=== PATIENT | female | born 1945 | race Caucasian/White ===

== ENCOUNTER → 2023-10-14 11:18 | Outpatient (REF) | payer MEDICARE, BC, SELFPAY ==
[2023-10-14 12:07] LABS: Urine Albumin Negative (Neg - Trace); Urine Bilirubin Negative (Negative); Urine Character Clear (Clear); Urine Color Yellow; Urine Glucose Negative (Negative); Urine Ketone Negative (Negative); Urine Leukocyte Trace (Negative); Urine Nitrite Negative (Negative); Urine Occult Blood Negative (Negative); Urine Specific Gravity 1.015 (<1.030); Urine Urobilinogen Negative (Neg - 1+)
[2023-10-14 12:45] LABS: Urine Calcium Oxalate Crystals Present
== END ==
LOC: OLABLV 11:18
PROVIDERS: ATTENDING PHYSICIAN Nurse Practitioner
DX: N39.0 Urinary tract infection, site not specified (principal)
CPT/HCPCS: 81003; 81015; 87086

== ENCOUNTER → 2023-10-22 10:59 | Outpatient (REF) | payer MEDICARE, BC, SELFPAY ==
[2023-10-22 11:39] LABS: % Basophils 0.8 % (0-2); % Immature Granulocytes 0.4 % (0-0.5); % Lymphocytes 18.5 % (20.5-51.1); % Monocytes 11.4 % (1.7-9.3); % Neutrophils 65.9 % (42.2-75.2); Absolute Basophils 0.1 10^3/uL (0-0.2); Absolute Eosinophils 0.3 10^3/uL (0-0.7); Absolute Lymphocytes 1.7 10^3/uL (1.2-3.4); Absolute Monocytes 1.1 10^3/uL (0.1-0.6); Absolute Neutrophils 6.1 10^3/uL (1.4-6.5); Hematocrit 40.6 % (37.0-47.0); Hemoglobin 13.6 g/dL (12.0-16.0); Mean Corp Hgb Conc. 33.5 g/dL (33.0-37.0); Mean Corpuscular Hgb 31.3 pg (27.0-31.0); Mean Corpuscular Volume 93.5 fL (81.0-99.0); Mean Platelet Volume 10.1 fL (7.4-10.4); Nucleated Red Blood Cells % 0 %; Platelet Count 250 10^3/uL (130-400); Red Blood Cell Count 4.34 10^6/uL (4.20-5.40); Red Cell Dist. Width 12.3 % (11.5-14.5); White Blood Cell Count 9.2 10^3/uL (4.8-10.8)
[2023-10-22 12:40] LABS: Glycohemoglobin (HgbA1c) 7.1 % (4.0-5.6)
[2023-10-22 12:42] LABS: ALT (SGPT) 19 U/L (0-35); AST (SGOT) 39 U/L (14-36); Albumin 3.6 g/dl (3.5-5.0); Alkaline Phosphatase 122 U/L (38-126); Blood Urea Nitrogen 12 mg/dl (7-17); Calcium 8.8 mg/dl (8.4-10.2); Carbon Dioxide 33 mmol/L (22-30); Chloride 96 mmol/L (98-107); Glucose 123 mg/dl (70-99); HDL Cholesterol 41 mg/dl; LDL Cholesterol, Calculated 64 mg/dl; Sodium 134 mmol/L (135-145); Total Bilirubin 0.6 mg/dl (0.2-1.3); Total Cholesterol 140 mg/dl (50-199); Total Protein 6.2 g/dl (6.3-8.2); Triglyceride 176 mg/dl (10-149); Very Low Density Lipoprotein 35 mg/dl (0-30); eGFR > 60.00
[2023-10-22 13:17] LABS: Free T4 1.36 ng/dl (0.78-2.19)
[2023-10-22 13:31] LABS: TSH 0.81 uIU/ml (0.47-4.68)
== END ==
LOC: OLABLV 10:59
PROVIDERS: ATTENDING PHYSICIAN Nurse Practitioner
DX: I50.33 Acute on chronic diastolic (congestive) heart failure (principal); I35.0 Nonrheumatic aortic (valve) stenosis; R41.82 Altered mental status, unspecified; R35.0 Frequency of micturition; E11.65 Type 2 diabetes mellitus with hyperglycemia
CPT/HCPCS: 80053; 80061; 83036; 84439; 84443; 85025

== ENCOUNTER → 2023-11-05 10:30 | Outpatient (REF) | payer MEDICARE, BC, SELFPAY ==
[2023-11-05 12:19] LABS: Uric Acid 7.9 mg/dl (2.5-6.2)
== END ==
LOC: OLABLV 10:30
PROVIDERS: ATTENDING PHYSICIAN Internal Medicine
DX: E79.0 Hyperuricemia without signs of inflammatory arthritis and tophaceous disease (principal); M10.9 Gout, unspecified
CPT/HCPCS: 36415; 84550

== ENCOUNTER → 2023-12-15 10:11 | Outpatient (REF) | payer MEDICARE, BC, SELFPAY ==
[2023-12-15 10:57] LABS: % Basophils 1.1 % (0-2); % Eosinophils 5.6 % (0-6); % Immature Granulocytes 0.3 % (0-0.5); % Lymphocytes 24.9 % (20.5-51.1); % Monocytes 10.8 % (1.7-9.3); % Neutrophils 57.3 % (42.2-75.2); Absolute Basophils 0.1 10^3/uL (0-0.2); Absolute Eosinophils 0.4 10^3/uL (0-0.7); Absolute Lymphocytes 1.9 10^3/uL (1.2-3.4); Absolute Monocytes 0.8 10^3/uL (0.1-0.6); Absolute Neutrophils 4.3 10^3/uL (1.4-6.5); Hematocrit 42.2 % (37.0-47.0); Hemoglobin 13.9 g/dL (12.0-16.0); Mean Corp Hgb Conc. 32.9 g/dL (33.0-37.0); Mean Corpuscular Hgb 31.1 pg (27.0-31.0); Mean Corpuscular Volume 94.4 fL (81.0-99.0); Mean Platelet Volume 10.4 fL (7.4-10.4); Nucleated Red Blood Cells % 0 %; Platelet Count 201 10^3/uL (130-400); Red Blood Cell Count 4.47 10^6/uL (4.20-5.40); Red Cell Dist. Width 12.5 % (11.5-14.5); White Blood Cell Count 7.5 10^3/uL (4.8-10.8)
[2023-12-15 11:40] LABS: ALT (SGPT) 30 U/L (0-35); AST (SGOT) 82 U/L (14-36); Albumin 4.2 g/dl (3.5-5.0); Alkaline Phosphatase 119 U/L (38-126); Blood Urea Nitrogen 14 mg/dl (7-17); Calcium 9.1 mg/dl (8.4-10.2); Carbon Dioxide 34 mmol/L (22-30); Chloride 96 mmol/L (98-107); Glucose 132 mg/dl (70-99); Potassium 3.8 mmol/L (3.5-5.1); Sodium 136 mmol/L (135-145); Total Bilirubin 0.4 mg/dl (0.2-1.3); Total Protein 6.9 g/dl (6.3-8.2); Uric Acid 6.8 mg/dl (2.5-6.2); eGFR > 60.00
[2023-12-15 12:37] LABS: Glycohemoglobin (HgbA1c) 7.2 % (4.0-5.6)
== END ==
LOC: OLABLV 10:11
PROVIDERS: ATTENDING PHYSICIAN Internal Medicine; FAMILY PHYSICIAN Nurse Practitioner
DX: M10.9 Gout, unspecified (principal); I10 Essential (primary) hypertension; R73.01 Impaired fasting glucose
CPT/HCPCS: 36415; 80053; 83036; 84550; 85025

== ENCOUNTER → 2024-02-02 10:10 | Outpatient (REF) | payer MEDICARE, BC, SELFPAY ==
[2024-02-02 11:22] LABS: % Basophils 1.3 % (0-2); % Eosinophils 7.2 % (0-6); % Immature Granulocytes 0.3 % (0-0.5); % Lymphocytes 29.4 % (20.5-51.1); % Monocytes 10.9 % (1.7-9.3); % Neutrophils 50.9 % (42.2-75.2); Absolute Basophils 0.1 10^3/uL (0-0.2); Absolute Eosinophils 0.5 10^3/uL (0-0.7); Absolute Monocytes 0.7 10^3/uL (0.1-0.6); Absolute Neutrophils 3.4 10^3/uL (1.4-6.5); Hematocrit 37.2 % (37.0-47.0); Hemoglobin 12.5 g/dL (12.0-16.0); Mean Corp Hgb Conc. 33.6 g/dL (33.0-37.0); Mean Corpuscular Hgb 30.9 pg (27.0-31.0); Mean Corpuscular Volume 91.9 fL (81.0-99.0); Mean Platelet Volume 10.2 fL (7.4-10.4); Nucleated Red Blood Cells % 0 %; Platelet Count 194 10^3/uL (130-400); Red Blood Cell Count 4.05 10^6/uL (4.20-5.40); Red Cell Dist. Width 12.7 % (11.5-14.5); White Blood Cell Count 6.7 10^3/uL (4.8-10.8)
[2024-02-02 13:38] LABS: ALT (SGPT) 26 U/L (0-35); AST (SGOT) 79 U/L (14-36); Albumin 3.4 g/dl (3.5-5.0); Alkaline Phosphatase 110 U/L (38-126); Blood Urea Nitrogen 19 mg/dl (7-17); Calcium 8.3 mg/dl (8.4-10.2); Carbon Dioxide 40 mmol/L (22-30); Chloride 90 mmol/L (98-107); Glucose 125 mg/dl (70-99); Potassium 2.5 mmol/L (3.5-5.1); Sodium 138 mmol/L (135-145); Total Bilirubin 0.4 mg/dl (0.2-1.3); eGFR 51.43
[2024-02-02 16:39] LABS: Urine Albumin Negative (Neg - Trace); Urine Bilirubin Negative (Negative); Urine Character Clear (Clear); Urine Color Yellow; Urine Glucose Negative (Negative); Urine Ketone Negative (Negative); Urine Leukocyte Negative (Negative); Urine Nitrite Negative (Negative); Urine Occult Blood Negative (Negative); Urine Urobilinogen Negative (Neg - 1+)
== END ==
LOC: OLABLV 10:10
PROVIDERS: ATTENDING PHYSICIAN Internal Medicine
DX: F03.918 Unspecified dementia, unspecified severity, with other behavioral disturbance (principal); E03.9 Hypothyroidism, unspecified; N39.0 Urinary tract infection, site not specified
CPT/HCPCS: 36415; 80053; 81003; 84443; 85025; 87086

== ENCOUNTER → 2024-02-04 10:36 | Outpatient (REF) | payer MEDICARE, BC, SELFPAY ==
[2024-02-04 11:58] LABS: Potassium 3.2 mmol/L (3.5-5.1)
== END ==
LOC: OLABLV 10:36
PROVIDERS: ATTENDING PHYSICIAN Internal Medicine
DX: E87.6 Hypokalemia (principal)
CPT/HCPCS: 36415; 84132

== ENCOUNTER → 2024-02-11 10:52 | Outpatient (REF) | payer MEDICARE, BC, SELFPAY ==
[2024-02-11 12:30] LABS: NT-proBNP 138 pg/ml
[2024-02-11 12:35] LABS: HDL Cholesterol 37 mg/dl; LDL Cholesterol, Calculated 53 mg/dl; Magnesium 1.6 mg/dl (1.6-2.3); Total Cholesterol 135 mg/dl (50-199); Triglyceride 225 mg/dl (10-149); Very Low Density Lipoprotein 45 mg/dl (0-30)
== END ==
LOC: OLABLV 10:52
PROVIDERS: ATTENDING PHYSICIAN Nurse Practitioner Gerontology
DX: E87.6 Hypokalemia (principal); I35.0 Nonrheumatic aortic (valve) stenosis; R06.09 Other forms of dyspnea; E78.2 Mixed hyperlipidemia; E11.9 Type 2 diabetes mellitus without complications
CPT/HCPCS: 36415; 80061; 83735; 83880

== ENCOUNTER → 2024-02-23 11:38 | Outpatient (REF) | payer MEDICARE, BC, SELFPAY ==
[2024-02-23 12:46] LABS: Potassium 4.4 mmol/L (3.5-5.1)
== END ==
LOC: OLABLV 11:38
PROVIDERS: ATTENDING PHYSICIAN Nurse Practitioner Gerontology
DX: E87.6 Hypokalemia (principal)
CPT/HCPCS: 36415; 84132

== ENCOUNTER → 2024-03-30 15:13 | Outpatient (REF) | payer MEDICARE, BC, SELFPAY ==
[2024-03-30 16:22] LABS: Urine Albumin Trace (Neg - Trace); Urine Bilirubin 1+ (Negative); Urine Character Very Cloudy (Clear); Urine Color Yellow; Urine Glucose 1+ (Negative); Urine Ketone Trace (Negative); Urine Leukocyte 2+ (Negative); Urine Nitrite Negative (Negative); Urine Occult Blood Negative (Negative); Urine Specific Gravity 1.015 (<1.030); Urine Urobilinogen Negative (Neg - 1+)
[2024-03-30 16:39] LABS: Urine Red Blood Cell 0-2 /HPF (0-2); Urine White Cell >100 /HPF (0-5)
[2024-03-30 16:40] LABS: Urine Bacteria Many (Negative)
== END ==
LOC: OLABLV 15:13
PROVIDERS: ATTENDING PHYSICIAN Nurse Practitioner Gerontology
DX: N39.0 Urinary tract infection, site not specified (principal)
CPT/HCPCS: 81003; 81015; 87077; 87086

== ENCOUNTER 2024-04-27 12:42 | Emergency (ER) | payer MEDICARE, BC, SELFPAY ==
[2024-04-27 12:44] VITALS: BP 119/77; BMI 31.4
[2024-04-27 13:00] VITALS: BP 111/74
[2024-04-27 14:00] VITALS: BP 116/77
--- NOTE | 2024-04-27 15:56 | ED.GENMED ---
History of Present Illness
General
Chief Complaint: Musculo-Skeletal Complaint
Source: patient and family
Time Seen by Provider: 04/27/24 12:44
History of Present Illness
History of Present Illness:
78-year-old female presenting to the ER from her nursing facility for evaluation of right shoulder pain and swelling that was noticed today. Patient is unable to give much history due to known dementia but states she is unaware of any falls and has
no other concerns other than right shoulder pain. Denies any headaches, visual changes, focal weakness/numbness, abdominal pain.
Past History
Past History
ED Past Medical History: Hypercholesterolemia, Renal failure and Valvular disease
ED Past Surgical History: Appendectomy, Orthopedic and Tonsilectomy
Social History
Tobacco: Non-smoker
Alcohol: None
Drug: None
Personal:
Living: [facility]
Review of Systems
Review of Systems
All Other Systems: ROS reviewed and negative except as documented in HPI and ROS
Phy Exam
Physical Exam
Physical Exam:
GENERAL: Alert , in no apparent distress
HEAD: NCAT
EYE: conjunctiva clear
NECK: Supple
ENT: o/p clr, mmm.
CARDIAC: Regular rate and rhythm
LUNGS: Clear breath sounds bilaterally, no acute respiratory distress, no wheezes/rales/rhonchi
NEUROLOGICAL: Alert and oriented
SKIN: Warm and dry, skin intact. no breaks in skin
MUSCULOSKELETAL: Right upper extremity: Mild soft tissue swelling and tenderness over the AC joint and proximal humeral head. Range of motion limited secondary to pain. Patient does allow for range of motion of the digits, wrist and elbow
without difficulty. Easily palpable radial pulse. Cap refill less than 2 seconds and sensation is grossly intact to light touch.
PSYCH: Normal and appropriate interaction.
Scores
Heart Failure Risk
Heart Failure Risk Score: Not Applicable
Heart Score for Chest Pain Patients
STEMI patient?: Not applicable
Withdrawal Assessment of Alcohol
Withdrawal Assessment Completed?: Not applicable
Course
Orders/Labs/Results
Orders:
Orders
04/27/24 12:52
CR Shoulder, Trauma - Right Urgent
Comment:
Reason For Exam: swelling
04/27/24 14:45
CT Head W/o Iv Contrast Urgent
Comment:
Reason For Exam: unwitnessed fall, ? head injury
04/27/24 16:36
Sling Right-Treatment ONCE
Vital Signs
Initial and Last Documented VS:
Initial Vital Signs
Temp Pulse Resp BP Pulse Ox
98.8 F 91 20 119/77 98
04/27/24 12:44 04/27/24 12:44 04/27/24 12:44 04/27/24 12:44 04/27/24 12:44
Last Documented Vital Signs
Temp Pulse Resp BP Pulse Ox
98.8 F 89 24 111/82 93
04/27/24 12:44 04/27/24 16:33 04/27/24 16:33 04/27/24 16:33 04/27/24 16:33
MDM/Problems Addressed
Differential Diagnosis Includes:
Humerus fracture/contusion, clavicle fracture, shoulder sprain, mechanical fall, intracranial bleeding
MDM/Problems Addressed:
78-year-old female presenting to the emergency department for evaluation after he was noted she had right shoulder pain and swelling. No known fall. Patient unable to provide much history due to dementia but states she has no other concerns right
now and is otherwise very pleasant. Will obtain x-ray. Pending x-ray results may need CT scan as patient could potentially have distracting injury with possible fall.
Chronic conditions affecting care: Neurological disorder (Dementia)
*Radiology
Radiology exam reviewed: preliminary read by ED provider (Proximal humerus versus lateral clavicle) and radiology read reviewed
*Pulse Oximetry
Patient hypoxic: no
*Critical Care Note
Total Time (30-74mins, 75-104mins- exclusive of procedures): Not Applicable
Comment
Comment:
Patient does have a lateral clavicle fracture on radiology read. Given this is likely traumatic will obtain a head CT to rule out any intracranial pathology.
Patient Management
Escalation/DeEscalation of care consider admission/obs:
Rest patient head CT shows no acute intracranial abnormality. 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 I provided a printout of this report and gave it to patient's son as well as discussed the recommended
outpatient dedicated CTA. Advised to contact family doctor that he will be able to arrange this study. Patient was also given information for orthopedics. Sling for the right upper extremity provided. Stable for discharge and aware of return
precautions to the emergency department.
ED Attending Note
-
Portions of this chart may have been created with voice recognition software.� Occasional wrong word or��sound alike� substitutions may have occurred due to the inherent limitations of voice recognition software.
Discharge Plan
Departure
Patient Disposition: Home (Routine Discharge)
Date of Disposition: 04/27/24
Time of Disposition: 16:33
Patient with high blood pressure during this ER visit?: No
Discharge Problem:
Fracture of clavicle, right, closed, Brain aneurysm
Instructions: Clavicle fracture
Prescriptions:
No Action
calcium carbonate [calcium] 500 MG tablet
1,500 mg PO DAILY
Patient Comments:
500 MG TID
valsartan [Diovan] 160 MG tablet
80 mg PO DAILY
rosuvastatin [Crestor] 10 MG tablet
20 mg PO DAILY
furosemide 40 mg Tablet
40 mg PO DAILY
metformin 500 mg Tablet
500 mg PO BID
donepezil [Aricept] 10 mg Tablet
10 mg PO DAILY
Aquaphor Ointment
1 applic TOPICAL BID
ascorbic acid (vitamin C) [Natural Vitamin C-An Hips] 500 mg Tablet
1,000 mg PO DAILY
capsaicin 0.025 % Cream
1 applic TOPICAL TID PRN (Reason: ithcing skin)
nystatin 100,000 unit/gram Powder
1 applic TOPICAL BID
Referrals:
Efra Kang MD [Active] - (Orthopedics)
Sangeetha Steel CRNP [Family Provider] -
Interventions
Interventions:
*Risk Screen - Suicide Last Done: 04/27/24 12:44
*General Assessment Last Done: 04/27/24 12:44
*Neglect/Abuse Screening Last Done: 04/27/24 12:44
ED- Fall Risk Assessment Last Done: 04/27/24 12:44
*ED COVID-19 Vaccine History Last Done: 04/27/24 12:44
ED-Musculoskeletal Assessment Last Done: 04/27/24 12:44
Discharge Date and Time
Print Language: BANGLADESHI
[2024-04-27 16:33] VITALS: BP 111/82
== END 2024-04-27 17:15 | disposition home or self-care (01) ==
LOC: EMR 12:42
PROVIDERS: EMERGENCY PHYSICIAN Emergency Medicine; FAMILY PHYSICIAN Nurse Practitioner Gerontology
DX: S42.001A Fracture of unspecified part of right clavicle, initial encounter for closed fracture (principal); X58.XXXA Exposure to other specified factors, initial encounter; F03.90 Unspecified dementia, unspecified severity, without behavioral disturbance, psychotic disturbance, mood disturbance, and anxiety; I67.1 Cerebral aneurysm, nonruptured
CPT/HCPCS: 99284; 70450; 73030

== ENCOUNTER → 2024-05-19 14:00 | Outpatient (REF) | payer MEDICARE, BC, SELFPAY | LOC: HWRAD 14:00 | PROVIDERS: ATTENDING PHYSICIAN Nurse Practitioner Gerontology | DX: I67.1 Cerebral aneurysm, nonruptured (principal) | CPT/HCPCS: 70496; Q9967 ==

== ENCOUNTER 2024-06-23 15:23 | Emergency (ER) | payer MEDICARE, BC, SELFPAY ==
[2024-06-23] VITALS (12 sets, daily range): BP systolic 98–138; BP diastolic 62–103; PULSE 98–110; BMI 33.1
[2024-06-23 16:02] LABS: % Eosinophils 4.9 % (0-6); % Immature Granulocytes 0.4 % (0-0.5); % Lymphocytes 23.9 % (20.5-51.1); % Monocytes 8.8 % (1.7-9.3); Absolute Basophils 0.1 10^3/uL (0-0.2); Absolute Eosinophils 0.5 10^3/uL (0-0.7); Absolute Lymphocytes 2.5 10^3/uL (1.2-3.4); Absolute Monocytes 0.9 10^3/uL (0.1-0.6); Absolute Neutrophils 6.3 10^3/uL (1.4-6.5); Hematocrit 40.2 % (37.0-47.0); Hemoglobin 13.3 g/dL (12.0-16.0); Mean Corp Hgb Conc. 33.1 g/dL (33.0-37.0); Mean Corpuscular Hgb 30.6 pg (27.0-31.0); Mean Corpuscular Volume 92.4 fL (81.0-99.0); Mean Platelet Volume 9.9 fL (7.4-10.4); Nucleated Red Blood Cells % 0 %; Platelet Count 251 10^3/uL (130-400); Red Blood Cell Count 4.35 10^6/uL (4.20-5.40); White Blood Cell Count 10.3 10^3/uL (4.8-10.8)
[2024-06-23 16:33] LABS: NT-proBNP 199 pg/ml; Troponin I < 0.012 ng/ml
[2024-06-23 16:41] LABS: ALT (SGPT) 28 U/L (0-35); AST (SGOT) 93 U/L (14-36); Albumin 4.1 g/dl (3.5-5.0); Alkaline Phosphatase 176 U/L (38-126); Blood Urea Nitrogen 25 mg/dl (7-17); Calcium 9.6 mg/dl (8.4-10.2); Carbon Dioxide 31 mmol/L (22-30); Chloride 96 mmol/L (98-107); Estimated Creatinine Clearance 55 ml/min; Glucose 313 mg/dl (70-99); Potassium 3.9 mmol/L (3.5-5.1); Sodium 141 mmol/L (135-145); Total Bilirubin 0.3 mg/dl (0.2-1.3); Total Protein 6.8 g/dl (6.3-8.2); eGFR > 60.00
[2024-06-23] MEDS: NSS 500 IV (16:45)
[2024-06-23] MEDS: ATIVAN 0.5 MG IV (16:47)
--- NOTE | 2024-06-23 18:14 | ED.GENMED ---
History of Present Illness
General
Chief Complaint: Heart Rate Problem
Source: patient
Exam Limitations: none
Time Seen by Provider: 06/23/24 16:23
Nursing documentation reviewed up to this point in time: agreed with
History of Present Illness
History of Present Illness:
Patient with history of dementia, presents to ED from skilled nursing, accompanied by her caregiver, secondary to sudden onset of hypotension, associated with pale appearance and tachycardia during physical therapy session this afternoon. Upon
arrival, patient is pleasantly confused, does not have any complaints. Denies dizziness. Denies chest pain. Denies headache. Denies nausea vomiting. Denies loss of appetite. Per caregiver, at bedside, patient is currently at her baseline
status and does not see anything different about the patient. Per caregiver, patient also has been in her baseline health recently, without any acute changes.
Past History
Past History
ED Past Medical History: Hypercholesterolemia, Renal failure and Valvular disease
ED Past Surgical History: Appendectomy, Orthopedic and Tonsilectomy
Social History
Tobacco: Non-smoker
Alcohol: None
Drug: None
Personal:
Living: skilled nursing
Review of Systems
Review of Systems
Allergies reviewed?: Yes
Unable to obtain full review of systems at this time due to: dementia
All Other Systems: Not applicable
Phy Exam
Physical Exam
Physical Exam:
Physical Exam
General: no apparent distress, not acutely ill. afebrile
Head: nc/at. eomi
Neck: supple. no meningeal signs.
Heart: s1/s2 regular rate and rhythm, no murmur. equal radial pulses.
Lungs: no acute respiratory distress. clear bilaterally
Abdomen: normal bowel sounds. not tender.
Neuro: alert and oriented x 2. no focal neurological deficits
Skin: no rash
Psychiatric: well kept. interactive and cooperative. pleasantly confused.
Extremities: no edema. no calf tenderness.
Course
Orders/Labs/Results
Orders:
Orders
06/23/24 15:39
EKG [Electrocardiogram (*1)] Urgent
Reason for Study: Tachycardia
06/23/24 15:40
EKG- Treatment ONCE
06/23/24 15:44
Complete Blood Count/With Diff Urgent
Comprehensive Metabolic Panel Urgent
NT-proBNP Urgent
TSH Reflex To Free T4 Urgent
Comment: ADD ON
Troponin I Urgent
06/23/24 16:32
0.9% Sodium Chloride 500 ml [Nss] 500 ml IV BOLUS
Lorazepam [Ativan] 0.5 mg IV NOW STA
06/23/24 16:37
Add On- LAB Urgent
Comments:: in lab
Tests Added?: TSH reflex to free
Abnormal Lab Results
06/23/24
15:44
Absolute Monos (auto) 0.9 H 10^3/uL
(0.1-0.6)
Chloride 96 L mmol/L
(98-107)
Carbon Dioxide 31 H mmol/L
(22-30)
BUN 25 H mg/dl
(7-17)
Glucose 313 H mg/dl
(70-99)
AST 93 H U/L
(14-36)
Alkaline Phosphatase 176 H U/L
(38-126)
06/23/24 15:44
06/23/24 15:44
Vital Signs
Initial and Last Documented VS:
Initial Vital Signs
Temp Pulse Resp BP Pulse Ox
98.4 F 123 23 105/73 93
06/23/24 15:29 06/23/24 15:29 06/23/24 15:29 06/23/24 15:29 06/23/24 15:29
Last Documented Vital Signs
Temp Pulse Resp BP Pulse Ox
98.4 F 96 20 134/88 97
06/23/24 15:29 06/23/24 22:33 06/23/24 22:33 06/23/24 22:33 06/23/24 22:33
MDM/Problems Addressed
MDM/Problems Addressed:
Orthostatic vital signs noted, with any acute changes. Patient otherwise remains afebrile, hemodynamically stable, without any distress. Patient is resting heart rate fluctuating between 80s and low 100s, without any symptoms. At this time,
patient will be discharged back to skilled nursing.
*Critical Care Note
Total Time (30-74mins, 75-104mins- exclusive of procedures): Not Applicable
ED Attending Note
-
Portions of this chart may have been created with voice recognition software.� Occasional wrong word or��sound alike� substitutions may have occurred due to the inherent limitations of voice recognition software.
Discharge Plan
Departure
Patient Disposition: Jail/SNF
Date of Disposition: 06/23/24
Time of Disposition: 18:14
Patient with high blood pressure during this ER visit?: No
Discharge Problem:
Tachycardia, Anxiety
Instructions: Tachycardia, Anxiety, Adult ED
Prescriptions:
No Action
furosemide 40 mg Tablet
40 mg PO DAILY
metformin 500 mg Tablet
500 mg PO BID
donepezil [Aricept] 10 mg Tablet
10 mg PO HS
ascorbic acid (vitamin C) [Natural Vitamin C-An Hips] 500 mg Tablet
1,000 mg PO DAILY
nystatin 100,000 unit/gram Powder
1 applic TOPICAL DAILY
acetaminophen 325 mg Tablet
650 mg PO Q4HPRN PRN (Reason: mild pain)
loperamide 2 mg Tablet
2 mg PO Q6HPRN PRN (Reason: diarrhea)
valsartan 80 mg Tablet
80 mg PO DAILY
melatonin 3 mg Tablet
3 mg PO HS
allopurinol 100 mg Tablet
100 mg PO DAILY
pantoprazole [Protonix] 20 mg Tablet,Delayed Release (/Ec)
20 mg PO BID
potassium chloride 20 mEq tablet,ER particles/crystals
20 meq PO BID
dextromethorphan-guaifenesin [Robitussin Cough-Chest Finesse DM] 5-100 mg/5 mL Liquid
10 ml PO Q4HPRN PRN (Reason: cough)
estradiol [Estrace] 0.01 % (0.1 mg/gram) Cream
1 g VAGINAL MOTH
alum-mag hydroxide-simeth [Mylanta Maximum Strength] 400-400-40 mg/5 mL Suspension
10 ml PO Q4HPRN PRN (Reason: nausea)
escitalopram oxalate 10 mg Tablet
10 mg PO DAILY
rosuvastatin 20 mg Tablet
30 mg PO DAILY
calcium carbonate-vitamin D3 [Calcium 600 + D(3)] 600 mg-10 mcg (400 unit) Tablet
1 tab PO DAILY
Balmex Adult Care 11.3 % Cream
1 applic TOPICAL BID
mirabegron [Myrbetriq] 25 mg Tablet Extended Release 24 Hr
25 mg PO DAILY
Referrals:
Sangeetha Steel CRNP [Family Provider] -
Activity Restrictions/Additional Instructions:
As discussed, you are being discharged back to skilled nursing for continual care. Strongly recommend continual hydration as an outpatient.
Interventions
Interventions:
*Risk Screen - Suicide Last Done: 06/23/24 15:29
*General Assessment Last Done: 06/23/24 15:29
*Neglect/Abuse Screening Last Done: 06/23/24 15:29
ED- Fall Risk Assessment Last Done: 06/23/24 15:40
*ED COVID-19 Vaccine History Last Done: 06/23/24 15:29
*Nursing Disposition Last Done: 06/23/24 22:33
ED- Cardiac Assessment Last Done: 06/23/24 15:40
ED- Pulmonary Assessment Last Done: 06/23/24 15:40
Discharge Date and Time
Discharge Date/Time: 06/23/24 22:34
Print Language: GEORGIAN
[2024-06-23 18:37] LABS: TSH Reflex To Free T4 1.17 uIU/ml (0.47-4.68)
== END 2024-06-23 22:34 ==
LOC: EMR 15:23
PROVIDERS: EMERGENCY PHYSICIAN Emergency Medicine; FAMILY PHYSICIAN Nurse Practitioner Gerontology
DX: R00.0 Tachycardia, unspecified (principal); F41.9 Anxiety disorder, unspecified; F03.90 Unspecified dementia, unspecified severity, without behavioral disturbance, psychotic disturbance, mood disturbance, and anxiety; E78.00 Pure hypercholesterolemia, unspecified
CPT/HCPCS: 96374; 96361; 99284; 80053; 83880; 84443; 84484; 85025; 93005

== ENCOUNTER → 2024-06-30 12:10 | Outpatient (REF) | payer MEDICARE, BC, SELFPAY ==
[2024-06-30 12:41] LABS: Hematocrit 39.7 % (37.0-47.0); Hemoglobin 12.9 g/dL (12.0-16.0); Mean Corp Hgb Conc. 32.5 g/dL (33.0-37.0); Mean Corpuscular Hgb 30.6 pg (27.0-31.0); Mean Corpuscular Volume 94.1 fL (81.0-99.0); Mean Platelet Volume 10.5 fL (7.4-10.4); Platelet Count 229 10^3/uL (130-400); Red Blood Cell Count 4.22 10^6/uL (4.20-5.40); White Blood Cell Count 8.4 10^3/uL (4.8-10.8)
[2024-06-30 12:56] LABS: ALT (SGPT) 24 U/L (0-35); AST (SGOT) 66 U/L (14-36); Albumin 3.8 g/dl (3.5-5.0); Alkaline Phosphatase 154 U/L (38-126); Blood Urea Nitrogen 21 mg/dl (7-17); Calcium 8.8 mg/dl (8.4-10.2); Carbon Dioxide 31 mmol/L (22-30); Chloride 97 mmol/L (98-107); Glucose 195 mg/dl (70-99); Potassium 4.3 mmol/L (3.5-5.1); Sodium 140 mmol/L (135-145); Total Bilirubin 0.3 mg/dl (0.2-1.3); Total Protein 6.3 g/dl (6.3-8.2); eGFR > 60.00
[2024-06-30 13:58] LABS: Glycohemoglobin (HgbA1c) 8.7 % (4.0-5.6)
== END ==
LOC: OLABPV 12:10
PROVIDERS: ATTENDING PHYSICIAN Nurse Practitioner Gerontology
DX: E11.8 Type 2 diabetes mellitus with unspecified complications (principal); M62.81 Muscle weakness (generalized); F03.90 Unspecified dementia, unspecified severity, without behavioral disturbance, psychotic disturbance, mood disturbance, and anxiety
CPT/HCPCS: 36415; 80053; 83036; 85027

== ENCOUNTER → 2024-07-12 12:57 | Outpatient (REF) | payer MEDICARE, BC, SELFPAY ==
[2024-07-12 13:31] LABS: ALT (SGPT) 28 U/L (0-35); AST (SGOT) 91 U/L (14-36); Albumin 3.7 g/dl (3.5-5.0); Alkaline Phosphatase 149 U/L (38-126); Blood Urea Nitrogen 22 mg/dl (7-17); Calcium 8.7 mg/dl (8.4-10.2); Carbon Dioxide 33 mmol/L (22-30); Chloride 92 mmol/L (98-107); Glucose 177 mg/dl (70-99); Potassium 4.1 mmol/L (3.5-5.1); Sodium 139 mmol/L (135-145); Total Bilirubin 0.3 mg/dl (0.2-1.3); Total Protein 6.2 g/dl (6.3-8.2); eGFR > 60.00
== END ==
LOC: OLABLV 12:57
PROVIDERS: ATTENDING PHYSICIAN Nurse Practitioner Gerontology
DX: I50.9 Heart failure, unspecified (principal); E87.6 Hypokalemia; R94.5 Abnormal results of liver function studies
CPT/HCPCS: 36415; 80053

== ENCOUNTER → 2024-07-14 10:51 | Outpatient (REF) | payer MEDICARE, BC, SELFPAY ==
[2024-07-14 11:36] LABS: Urine Albumin 1+ (Neg - Trace); Urine Bilirubin Negative (Negative); Urine Character Very Cloudy (Clear); Urine Color Yellow; Urine Glucose Negative (Negative); Urine Ketone Negative (Negative); Urine Leukocyte 2+ (Negative); Urine Nitrite Positive (Negative); Urine Occult Blood Trace (Negative); Urine Urobilinogen Negative (Neg - 1+)
[2024-07-14 12:16] LABS: Urine Squamous Cell 0-2 /LPF (Few)
[2024-07-14 12:17] LABS: Urine Bacteria Many (Negative); Urine Red Blood Cell 0-2 /HPF (0-2); Urine White Cell 60-70 /HPF (0-5)
== END ==
LOC: OLABLV 10:51
PROVIDERS: ATTENDING PHYSICIAN Nurse Practitioner Gerontology
DX: N39.0 Urinary tract infection, site not specified (principal); R39.15 Urgency of urination
CPT/HCPCS: 81003; 81015; 87077; 87086; 87186

== ENCOUNTER → 2024-07-21 08:35 | Outpatient (REF) | payer MEDICARE, BC, SELFPAY ==
[2024-07-21 10:37] LABS: Blood Urea Nitrogen 17 mg/dl (7-17); Calcium 9.2 mg/dl (8.4-10.2); Carbon Dioxide 33 mmol/L (22-30); Chloride 97 mmol/L (98-107); Glucose 167 mg/dl (70-99); Sodium 140 mmol/L (135-145); eGFR > 60.00
== END ==
LOC: OLABLV 08:35
PROVIDERS: ATTENDING PHYSICIAN Nurse Practitioner Gerontology
DX: R79.89 Other specified abnormal findings of blood chemistry (principal)
CPT/HCPCS: 36415; 80048

== ENCOUNTER → 2024-07-28 06:33 | Outpatient (REF) | payer MEDICARE, BC, SELFPAY ==
[2024-07-28 07:52] LABS: Blood Urea Nitrogen 18 mg/dl (7-17); Calcium 8.7 mg/dl (8.4-10.2); Carbon Dioxide 35 mmol/L (22-30); Chloride 97 mmol/L (98-107); Glucose 158 mg/dl (70-99); Potassium 3.9 mmol/L (3.5-5.1); Sodium 143 mmol/L (135-145); eGFR > 60.00
== END ==
LOC: OLABLV 06:33
PROVIDERS: ATTENDING PHYSICIAN Nurse Practitioner Gerontology
DX: M62.81 Muscle weakness (generalized) (principal); R60.0 Localized edema
CPT/HCPCS: 36415; 80048

== ENCOUNTER → 2024-08-23 10:43 | Outpatient (REF) | payer MEDICARE, BC, SELFPAY ==
[2024-08-23 12:45] LABS: Blood Urea Nitrogen 26 mg/dl (7-17); Calcium 9.2 mg/dl (8.4-10.2); Carbon Dioxide 35 mmol/L (22-30); Chloride 93 mmol/L (98-107); Glucose 170 mg/dl (70-99); Sodium 137 mmol/L (135-145); eGFR 51.43
== END ==
LOC: OLABLV 10:43
PROVIDERS: ATTENDING PHYSICIAN Nurse Practitioner Gerontology; FAMILY PHYSICIAN Nurse Practitioner
DX: I35.0 Nonrheumatic aortic (valve) stenosis (principal); R06.00 Dyspnea, unspecified
CPT/HCPCS: 36415; 80048; 93306

== ENCOUNTER 2024-09-25 23:32 | Inpatient (IN) | payer MEDICARE, BC, SELFPAY ==
[2024-09-25] VITALS (23 sets, daily range): BP systolic 98–137; BP diastolic 69–100; BMI 33.3
[2024-09-25 18:47] LABS: % Basophils 0.6 % (0-2); % Eosinophils 0.7 % (0-6); % Immature Granulocytes 0.4 % (0-0.5); % Lymphocytes 14.8 % (20.5-51.1); % Monocytes 9.5 % (1.7-9.3); Absolute Basophils 0.1 10^3/uL (0-0.2); Absolute Eosinophils 0.1 10^3/uL (0-0.7); Absolute Immature Granulocytes 0.1 10^3/uL (0-0.05); Absolute Lymphocytes 1.7 10^3/uL (1.2-3.4); Absolute Monocytes 1.1 10^3/uL (0.1-0.6); Absolute Neutrophils 8.6 10^3/uL (1.4-6.5); Hematocrit 41.9 % (37.0-47.0); Hemoglobin 13.7 g/dL (12.0-16.0); Mean Corp Hgb Conc. 32.7 g/dL (33.0-37.0); Mean Corpuscular Hgb 31.2 pg (27.0-31.0); Mean Corpuscular Volume 95.4 fL (81.0-99.0); Mean Platelet Volume 9.2 fL (7.4-10.4); Nucleated Red Blood Cells % 0 %; Platelet Count 226 10^3/uL (130-400); Red Blood Cell Count 4.39 10^6/uL (4.20-5.40); Red Cell Dist. Width 13.2 % (11.5-14.5); White Blood Cell Count 11.6 10^3/uL (4.8-10.8)
[2024-09-25 19:03] LABS: ALT (SGPT) 21 U/L (0-35); AST (SGOT) 64 U/L (14-36); Alkaline Phosphatase 153 U/L (38-126); Blood Urea Nitrogen 18 mg/dl (7-17); Calcium 9.5 mg/dl (8.4-10.2); Carbon Dioxide 32 mmol/L (22-30); Chloride 98 mmol/L (98-107); Glucose 145 mg/dl (70-99); Potassium 4.1 mmol/L (3.5-5.1); Sodium 138 mmol/L (135-145); Total Bilirubin 0.4 mg/dl (0.2-1.3); Total Protein 6.8 g/dl (6.3-8.2); eGFR > 60.00
[2024-09-25 19:05] LABS: COVID-19 Antigen Negative (Negative); NT-proBNP 936 pg/ml
[2024-09-25 19:40] LABS: Troponin I 0.017 ng/ml
[2024-09-25] MEDS: NSS 1000 IV (20:57)
[2024-09-25 21:10] LABS: Urine Albumin 2+ (Neg - Trace); Urine Bilirubin Negative (Negative); Urine Character Slightly Cloudy (Clear); Urine Color Yellow; Urine Glucose Negative (Negative); Urine Ketone Trace (Negative); Urine Leukocyte 2+ (Negative); Urine Nitrite Positive (Negative); Urine Occult Blood Trace (Negative); Urine Urobilinogen Negative (Neg - 1+)
[2024-09-25 21:49] LABS: Urine Bacteria Many (Negative); Urine Red Blood Cell 0-2 /HPF (0-2); Urine White Cell >100 /HPF (0-5)
--- NOTE | 2024-09-25 22:06 | ED.GENMED ---
History of Present Illness
<Kaylee Donis NP - Last Filed: 09/25/24 23:24>
General
Chief Complaint: Weakness
Source: ambulance crew and alf
Exam Limitations: none
Time Seen by Provider: 09/25/24 18:43
Nursing documentation reviewed up to this point in time: agreed with
History of Present Illness
History of Present Illness:
Patient to ED fo long-term for report increased weakness over the past 24 hours. No reports of fever/chills. Brought to ED via EMS for eval
Past History
<Kaylee Donis NP - Last Filed: 09/25/24 23:24>
Past History
ED Past Medical History: Hypercholesterolemia, Renal failure and Valvular disease
ED Past Surgical History: Appendectomy, Orthopedic and Tonsilectomy
Social History
Tobacco: Non-smoker
Alcohol: None
Drug: None
Personal:
Living: alf
Review of Systems
<Kaylee Donis NP - Last Filed: 09/25/24 23:24>
Review of Systems
Allergies reviewed?: Yes
All Other Systems: ROS reviewed and negative except as documented in HPI and ROS
Constitutional: Reports no symptoms
EENT: Reports no symptoms
Respiratory: Reports other (Tachypnea)
Cardiac: Reports no symptoms
ABD/GI: Reports no symptoms
: Reports no symptoms
Musculoskeletal: Reports no symptoms
Skin: Reports no symptoms
Neurological: Reports weakness
Psychiatric: Reports no symptoms
Phy Exam
<Kaylee Donis NP - Last Filed: 09/25/24 23:24>
General Physical Exam
General Presentation: mild distress
General age: appears stated age
General Skin: warm and dry
General Habitus: normal
General Mental: alert
Cardiovascular Exam
Cardiovascular Exam: regular rate/rhythm
Pulmonary Exam
Pulmonary Exam: no cough and decreased breath sounds
Oxygen Status: oxygen 2 liters via NC
Gastrointestinal Exam
Gastrointestinal Exam: normal bowel sounds, non tender, soft and no organomegaly
Musculoskeletal Exam
Musculoskeletal Exam: neuro vasc intact
Skin Exam
Skin Exam: normal color, warm/dry and no rash
Psychiatric Exam
Psychiatric Exam: normal mood/affect
Course
<Kaylee Donis NP - Last Filed: 09/25/24 23:24>
Orders/Labs/Results
Orders:
Orders
09/25/24 18:21
EKG [Electrocardiogram (*1)] Urgent
Reason for Study: Atrial Fibrillation
09/25/24 18:22
EKG- Treatment ONCE
09/25/24 18:36
CBC/With Diff [Complete Blood Count/With Diff] Urgent
CMP [Comprehensive Metabolic Panel] Urgent
COVID-19 Antigen Urgent
Source: Nasal Swab
Pro-BNP [NT-proBNP] Urgent
Troponin I Urgent
Comment: ADD ON
Influenza A+B Rapid Molecular Urgent
JEROD Source: Nasal Swab
Specimen Description:
09/25/24 19:06
Add On- LAB Stat
Tests Added?: troponin
09/25/24 20:08
0.9% Sodium Chloride 1000 ml [Nss] 1,000 ml IV BOLUS
CR Chest - 2 Views Urgent
Comment:
Reason For Exam: weakness
09/25/24 20:57
Urinalysis Reflex To Culture Urgent
Date Specimen was Collected: 09/25/24
Time Specimen was Collected: 19:49
Urine Microscopic Reflex Cult Urgent
Urine Culture Urgent
JEROD Source: U
Specimen Description:
Date Specimen was Collected: 09/25/24
Time Specimen was Collected: 19:49
09/25/24 22:09
CefTRIAXone [Rocephin] 1,000 mg IV NOW STA
09/25/24 23:00
Flush (0.9% Sodium Chloride) [Flush (Nss)] See Dose Instructions IV PER PROTOCOL
Abnormal Lab Results
09/25/24 09/25/24
18:36 20:57
WBC 11.6 H 10^3/uL
(4.8-10.8)
MCH 31.2 H pg
(27.0-31.0)
MCHC 32.7 L g/dL
(33.0-37.0)
Abs Immat Gran (auto) 0.1 H 10^3/uL
(0-0.05)
Absolute Neuts (auto) 8.6 H 10^3/uL
(1.4-6.5)
Absolute Monos (auto) 1.1 H 10^3/uL
(0.1-0.6)
Lymphocytes % 14.8 L %
(20.5-51.1)
Monocytes % 9.5 H %
(1.7-9.3)
Carbon Dioxide 32 H mmol/L
(22-30)
BUN 18 H mg/dl
(7-17)
Glucose 145 H mg/dl
(70-99)
AST 64 H U/L
(14-36)
Alkaline Phosphatase 153 H U/L
(38-126)
Urine Ketones Trace A
(Negative)
Ur Occult Blood Reflex Trace A
(Negative)
Urine Nitrite (Reflex) Positive A
(Negative)
Leukocyte Esterase Rfl 2+ A
(Negative)
Urine WBC (Reflex) >100 A /HPF
(0-5)
Urine Bacteria (Reflex) Many A
(Negative)
Urine Albumin (Reflex) 2+ A
(Neg - Trace)
09/25/24 18:36
09/25/24 18:36
Vital Signs
Initial and Last Documented VS:
Initial Vital Signs
Temp Pulse Resp BP Pulse Ox
99.1 F 125 24 110/84 92
09/25/24 18:23 09/25/24 18:23 09/25/24 18:23 09/25/24 18:23 09/25/24 18:23
Last Documented Vital Signs
Temp Pulse Resp BP Pulse Ox
98.4 F 87 25 133/87 93
09/25/24 22:01 09/25/24 22:30 09/25/24 22:30 09/25/24 22:28 09/25/24 22:30
<Roger Flaherty MD - Last Filed: 09/25/24 22:33>
Orders/Labs/Results
Orders:
Orders
09/25/24 18:21
EKG [Electrocardiogram (*1)] Urgent
Reason for Study: Atrial Fibrillation
09/25/24 18:22
EKG- Treatment ONCE
09/25/24 18:36
CBC/With Diff [Complete Blood Count/With Diff] Urgent
CMP [Comprehensive Metabolic Panel] Urgent
COVID-19 Antigen Urgent
Source: Nasal Swab
Pro-BNP [NT-proBNP] Urgent
Troponin I Urgent
Comment: ADD ON
Influenza A+B Rapid Molecular Urgent
JEROD Source: Nasal Swab
Specimen Description:
09/25/24 19:06
Add On- LAB Stat
Tests Added?: troponin
09/25/24 20:08
0.9% Sodium Chloride 1000 ml [Nss] 1,000 ml IV BOLUS
CR Chest - 2 Views Urgent
Comment:
Reason For Exam: weakness
09/25/24 20:57
Urinalysis Reflex To Culture Urgent
Date Specimen was Collected: 09/25/24
Time Specimen was Collected: 19:49
Urine Microscopic Reflex Cult Urgent
Urine Culture Urgent
JEROD Source: U
Specimen Description:
Date Specimen was Collected: 09/25/24
Time Specimen was Collected: 19:49
09/25/24 22:09
CefTRIAXone [Rocephin] 1,000 mg IV NOW STA
09/25/24 23:00
Flush (0.9% Sodium Chloride) [Flush (Nss)] See Dose Instructions IV PER PROTOCOL
Abnormal Lab Results
09/25/24 09/25/24
18:36 20:57
WBC 11.6 H 10^3/uL
(4.8-10.8)
MCH 31.2 H pg
(27.0-31.0)
MCHC 32.7 L g/dL
(33.0-37.0)
Abs Immat Gran (auto) 0.1 H 10^3/uL
(0-0.05)
Absolute Neuts (auto) 8.6 H 10^3/uL
(1.4-6.5)
Absolute Monos (auto) 1.1 H 10^3/uL
(0.1-0.6)
Lymphocytes % 14.8 L %
(20.5-51.1)
Monocytes % 9.5 H %
(1.7-9.3)
Carbon Dioxide 32 H mmol/L
(22-30)
BUN 18 H mg/dl
(7-17)
Glucose 145 H mg/dl
(70-99)
AST 64 H U/L
(14-36)
Alkaline Phosphatase 153 H U/L
(38-126)
Urine Ketones Trace A
(Negative)
Ur Occult Blood Reflex Trace A
(Negative)
Urine Nitrite (Reflex) Positive A
(Negative)
Leukocyte Esterase Rfl 2+ A
(Negative)
Urine WBC (Reflex) >100 A /HPF
(0-5)
Urine Bacteria (Reflex) Many A
(Negative)
Urine Albumin (Reflex) 2+ A
(Neg - Trace)
09/25/24 18:36
09/25/24 18:36
Vital Signs
Initial and Last Documented VS:
Initial Vital Signs
Temp Pulse Resp BP Pulse Ox
99.1 F 125 24 110/84 92
09/25/24 18:23 09/25/24 18:23 09/25/24 18:23 09/25/24 18:23 09/25/24 18:23
Last Documented Vital Signs
Temp Pulse Resp BP Pulse Ox
98.4 F 87 25 133/87 93
09/25/24 22:01 09/25/24 22:30 09/25/24 22:30 09/25/24 22:28 09/25/24 22:30
<Kaylee Donis NP - Last Filed: 09/25/24 23:24>
*Critical Care Note
Total Time (30-74mins, 75-104mins- exclusive of procedures): Not Applicable
<Kaylee Donis NP - Last Filed: 09/25/24 23:24>
Update Note
Update Note:
Patient to ED for eval of weakness. Labs, CXR reviewed. Decreased lung souonds. Pulse ox 89%RA. [place] 2L NC and maintaining at 95 % Does not require O2 at NH. CXR atelectasis, less likely pneumonia. Has been tachypnic in ED and is
requiring supplemental O2. Will place on Rocephin. UA reflecting UTI. Rocephin should cover. Remains afebrile. Will admit to hospitalist.
ED Attending Note
<Kaylee Donis DIRECTOR OF SOFTWARE DEVELOPMENT - Last Filed: 09/25/24 23:24>
-
Portions of this chart may have been created with voice recognition software.� Occasional wrong word or��sound alike� substitutions may have occurred due to the inherent limitations of voice recognition software.
<Roger Flaherty MD - Last Filed: 09/25/24 22:33>
ED Attending Note
Patient seen and examined by attending physician: Yes
I performed the substantive portion of visit, reviewed & personally made and approve the management plan that is documented in note by myself or JOVAN.: Yes
ED Attending Note:
78-year-old female sent for general weakness. Patient without added history. History of dementia. Awake and oriented to self and at baseline per staff.
On exam patient is nontoxic. Chronically ill. Poor insight. Alert to name. Mildly tachypneic. Coarse rhonchi with expiration. Mildly hypoxic. Borderline tachycardia no murmur. Abdomen soft is nontender. Warm and dry. Perfusing well.
Labs show a leukocytosis, positive urine, possible pneumonia. Previous records are reviewed. Given patient's hypoxia mild tachypnea positive urine dehydration patient warrants inpatient management. Rocephin and azithromycin ordered. Rocephin
would cover pulmonary and UTI
Discharge Plan
Departure
Patient Disposition: Admit
Date of Disposition: 09/25/24
Time of Disposition: 22:17
Presentation/result/management discussed w/ accepting MD/DO: Hospitalist
Patient with high blood pressure during this ER visit?: No
Condition: Fair
Covid-19: Not Applicable
Discharge Problem:
Acute UTI, Pneumonia
Prescriptions:
No Action
metformin 500 mg Tablet
500 mg PO NOON
donepezil [Aricept] 10 mg Tablet
10 mg PO HS
ascorbic acid (vitamin C) [Natural Vitamin C-An Hips] 500 mg Tablet
1,000 mg PO DAILY
nystatin 100,000 unit/gram Powder
1 applic TOPICAL DAILY
acetaminophen 325 mg Tablet
650 mg PO Q4HPRN PRN (Reason: mild pain)
loperamide 2 mg Tablet
2 mg PO Q6HPRN PRN (Reason: diarrhea)
valsartan 80 mg Tablet
80 mg PO DAILY
melatonin 3 mg Tablet
3 mg PO HS
allopurinol 100 mg Tablet
100 mg PO DAILY
pantoprazole [Protonix] 20 mg Tablet,Delayed Release (Dr/Ec)
20 mg PO BID
potassium chloride 20 mEq tablet,ER particles/crystals
20 meq PO BID
dextromethorphan-guaifenesin [Robitussin Cough-Chest Finesse DM] 5-100 mg/5 mL Liquid
10 ml PO Q4HPRN PRN (Reason: cough)
estradiol [Estrace] 0.01 % (0.1 mg/gram) Cream
1 g VAGINAL MOTH
alum-mag hydroxide-simeth [Mylanta Maximum Strength] 400-400-40 mg/5 mL Suspension
10 ml PO Q4HPRN PRN (Reason: nausea)
escitalopram oxalate 10 mg Tablet
10 mg PO DAILY
rosuvastatin 20 mg Tablet
30 mg PO DAILY
calcium carbonate-vitamin D3 [Calcium 600 + D(3)] 600 mg-10 mcg (400 unit) Tablet
1 tab PO DAILY
Balmex Adult Care 11.3 % Cream
1 applic TOPICAL BIDPRN PRN (Reason: sacral area redness)
mirabegron [Myrbetriq] 25 mg Tablet Extended Release 24 Hr
25 mg PO DAILY
metformin 1,000 mg Tablet
1,000 mg PO DAILY
furosemide [Lasix] 20 mg Tablet
20 mg PO DAILY
furosemide [Lasix] 20 mg Tablet
20 mg PO [id number]
Referrals:
Sangeetha Steel CRNP [Family Provider] -
Interventions
Interventions:
*Risk Screen - Suicide Last Done: 09/25/24 18:23
*General Assessment Last Done: 09/25/24 18:23
*Neglect/Abuse Screening Last Done: 09/25/24 18:23
*ED COVID-19 Vaccine History Last Done: 09/25/24 18:57
ED- Cardiac Assessment Last Done: 09/25/24 18:57
ED- Neurological Assessment Last Done: 09/25/24 18:57
ED- Pulmonary Assessment Last Done: 09/25/24 18:57
Discharge Date and Time
Print Language: PASHTO
--- NOTE | 2024-09-25 22:22 | HPS.HSE ---
Family Physician
-
Family Physician: BIPIN Henning
Chief Complaint
-
weakness
History of Present Illness
Patient is a 78-year-old female with past medical history significant for hypertension, hyperlipidemia, DM II, CKD, HFpEF and dementia who presented to [facility] from [facility] for generalized weakness over past 24-hours. HPI obtained from ED
staff and documentation, patient is poor historian. Patient arrived in ED via EMS with mild tachypnea and mild hypoxia, 2L O2 via NC placed with positive effects.
Medical History
Past Medical History
Past Medical History: Reports Other
Additional Past Medical History:
hypertension
hyperlipidemia
DM II
CKD
dementia
HFpEF
Past Surgical History: Reports Other
Additional Past Surgical History:
right total knee
right inguinal hernia
lumbar fusion
appendectomy
tonsillectomy
Social History
Unable to obtain full social history at this time due to: Dementia
Family History
Family History: Other (unable to obtain)
Allergies / Home Medications
Allergies reflects when Allergies were last updated in [facility].
Home Medications with original date entered in [employer] [facility]
Allergy/Medication List:
Allergies
Allergy/AdvReac Type Severity Reaction Status Date / Time
No Known Drug Allergies Allergy - Verified 06/23/24 15:43
seasonal Allergy mild Uncoded 06/23/24 15:43
congestion,
sneezing,
post nasal
drip
Home Medications
ascorbic acid (vitamin C) 500 mg tablet 1,000 mg PO DAILY 07/03/23
donepezil 10 mg tablet (Aricept) 10 mg PO HS 07/03/23
metformin 500 mg tablet 500 mg PO NOON 07/03/23
nystatin 100,000 unit/gram topical powder 1 applic topical DAILY skin rash 07/03/23
acetaminophen 325 mg tablet 650 mg PO Q4HPRN PRN mild pain 06/23/24
allopurinol 100 mg tablet 100 mg PO DAILY 06/23/24
aluminum-mag hydroxide-simethicone 400 mg-400 mg-40 mg/5 mL oral susp (Mylanta Maximum Strength) 10 ml PO Q4HPRN PRN nausea 06/23/24
calcium 600 mg (as carbonate)-vitamin D3 10 mcg (400 unit) tablet (Calcium 600 + D(3)) 1 tab PO DAILY 06/23/24
dextromethorphan-guaifenesin 5 mg-100 mg/5 mL oral liquid (Robitussin Cough-Chest Congestion DM) 10 ml PO Q4HPRN PRN cough 06/23/24
escitalopram oxalate 10 mg tablet 10 mg PO DAILY 06/23/24
estradiol 0.01% (0.1 mg/gram) vaginal cream (Estrace) 1 g vaginal MOTH 06/23/24
loperamide 2 mg tablet 2 mg PO Q6HPRN PRN diarrhea 06/23/24
melatonin 3 mg tablet 3 mg PO HS 06/23/24
mirabegron 25 mg tablet,extended release 24 hr (Myrbetriq) 25 mg PO DAILY 06/23/24
pantoprazole 20 mg tablet,delayed release (Protonix) 20 mg PO BID 06/23/24
potassium chloride 20 mEq tablet,extended release(part/cryst) 20 meq PO BID 06/23/24
rosuvastatin 20 mg tablet 30 mg PO DAILY 06/23/24
valsartan 80 mg tablet 80 mg PO DAILY 06/23/24
zinc oxide-vitamin B5-vit E 11.3% topical cream (Balmex Adult Care) 1 applic topical BIDPRN PRN sacral area redness 06/23/24
furosemide 20 mg tablet (Lasix) 20 mg PO DAILY 09/25/24
furosemide 20 mg tablet (Lasix) 20 mg PO MOWEFR 09/25/24
metformin 1,000 mg tablet 1,000 mg PO DAILY 09/25/24
Review of Systems
-
Unable to obtain full review of systems at this time due to: Dementia
Physical Exam
Vital Signs
Vital Signs
Temp Pulse Resp BP Pulse Ox
98.4 F 78 21 107/88 92
09/25/24 22:01 09/25/24 21:20 09/25/24 21:20 09/25/24 21:20 09/25/24 21:28
Physical Exam
General: Well Developed, Well Nourished, No Apparent Distress and Morbidly Obese
HEENT: NormoCephalic, Moist mucous membranes, Atraumatic, [place] Conjunctivae, Nose Appears Normal, Ears Appear Normal and Hearing Impaired
Respiratory: Clear and Decreased Breath Sounds
Cardiac: S1/S2 and Regular Rhythm; No Murmur, Rub or Gallop
Breast: Deferred by me
GI: Soft, Non Tender, Non Distended and Normal Bowel Sounds; No Organomegaly
Rectal: Deferred by Provider
Genito-urinary: Deferred by me
Musculoskeletal: No Clubbing, No Cyanosis and No Edema
Skin: Warm and IV/Catheter Site; No Rash
Neuro: Awake, Alert, Oriented (to self only ) and Nonfocal/grossly intact
Psych: Calm and Intact Judgment/Insight
Laboratory Results
-
09/25/24 18:36
09/25/24 18:36
Laboratory Results
Total Bilirubin 0.4 mg/dl (0.2-1.3) 09/25/24 18:36
AST 64 U/L (14-36) H 09/25/24 18:36
ALT 21 U/L (0-35) 09/25/24 18:36
Alkaline Phosphatase 153 U/L (38-126) H 09/25/24 18:36
Troponin I Cancelled 09/25/24 18:58
Data Reviewed
-
Diagnostic Radiology: Report Reviewed by me (CXR: 1. Mild amount of subpleural opacity in the inferior segment of the lingula and in the basilar segments of the left lower lobe. Diagnostic possibilities are (1) most likely mild subsegmental
atelectasis and scarring or (2) less likely mild pneumonia. 2. Moderately decreased bilateral lung v)
Medical Tests (Nuc Med, Echo, EKG etc): Report Reviewed by me (EKG: NORMAL SINUS RHYTHM LEFT AXIS DEVIATION INCOMPLETE RIGHT BUNDLE BRANCH BLOCK MINIMAL VOLTAGE CRITERIA FOR LVH, MAY BE NORMAL VARIANT ( [place] product ) NONSPECIFIC ST AND T WAVE
ABNORMALITY ABNORMAL ECG)
Lab Data: Labs Reviewed by me (WBC 11.6, BUn 18, Creat 0.8, AST 64, Alk Phos 153, BNP 936, Trop 0.017 )
Impression/Plan
-
IMPRESSION/PLAN:
#weakness: UTI and/or PNA
WBC 11.6
UA: indicative of UTI
UA C&S: pending
CXR: 1. Mild amount of subpleural opacity in the inferior segment of the lingula and in the basilar segments of the left lower lobe. Diagnostic possibilities are (1) most likely mild subsegmental atelectasis and scarring or (2) less likely mild
pneumonia.
2. Moderately decreased bilateral lung volumes.
Covid and Influenza: negative
- Admit to med/surg
- IV antibiotics
- PRN O2 titrate as needed to maintain SpO2 >93%
- supportive care
#hypertension
- continue valsartan
#hyperlipidemia
- continue rosuvastatin
#DM II
- AccuChecks AC & HS
- hold metformin
- SSI
#CKD
BUN 18, Creat 0.8
- monitor BMP
#dementia
- continue donepezil, and escitalopram
#HFpEF
EKG: NORMAL SINUS RHYTHM
LEFT AXIS DEVIATION
INCOMPLETE RIGHT BUNDLE BRANCH BLOCK
MINIMAL VOLTAGE CRITERIA FOR LVH, MAY BE NORMAL VARIANT ( [place] product )
NONSPECIFIC ST AND T WAVE ABNORMALITY
ABNORMAL ECG
ECHO (08/23/2024): Left ventricle is small in size with mild concentric left ventricular
hypertrophy and normal systolic function. LVEF 58%.
Stage II diastolic dysfunction suggestive of abnormal relaxation and increased
filling pressures.
Normal right ventricular size and function.
Mild mitral stenosis.
Moderate aortic stenosis (peak/mean 34/21 mmHg, JODI 1.2 cm2).
BNP 936
- continue furosemide, and potassium chloride
Code Status: Full code
DVT Prophylaxis: heparin sq
[2024-09-25] MEDS: ROCEPHIN 1000 MG IV (22:32)
--- NOTE | 2024-09-25 23:12 | W.PN.UPDATE ---
Update Note
Progress Note Update
Attending addendum
Patient seen independently
78-year-old woman with past medical history significant for
hypertension,
hyperlipidemia,
DM II,
CKD,
HFpEF
dementia
presents to [facility] from [facility] for generalized weakness over past 24-hours. Patient is poor historian. She could not answer any of my questions. She arrived in ED via EMS with mild tachypnea and mild hypoxia, 2L O2 via NC placed with
positive effects. Xray in ER showed:
1. Mild amount of subpleural opacity in the inferior segment of the lingula and in the basilar segments of the left lower lobe. Diagnostic possibilities are (1) most likely mild subsegmental atelectasis and scarring or (2) less likely mild
pneumonia.
2. Moderately decreased bilateral lung volumes.
Past Medical History
hypertension
hyperlipidemia
DM II
CKD
dementia
HFpEF
right total knee
right inguinal hernia
lumbar fusion
appendectomy
tonsillectomy
Physical Exam
General: Well Developed, Well Nourished, No Apparent Distress and Morbidly Obese
HEENT: NormoCephalic, Moist mucous membranes, Atraumatic, [place] Conjunctivae, Nose Appears Normal, Ears Appear Normal and Hearing Impaired
Respiratory: Clear and Decreased Breath Sounds
Cardiac: S1/S2 and Regular Rhythm; No Murmur, Rub or Gallop
GI: Soft, Non Tender, Non Distended and Normal Bowel Sounds; No Organomegaly
Psych: Calm and Intact Judgment/Insight
Impression/Plan
1. weakness: UTI and/or PNA
- IV antibiotics
- PRN O2 titrate as needed to maintain SpO2 >93%
- supportive care
Please see SHAKER OPERATOR note for details on
hypertension
hyperlipidemia
DM II
CKD
dementia
HFpEF
Code Status: Presumed full
DVT Prophylaxis: heparin sq
[2024-09-26] VITALS (8 sets, daily range): BP systolic 113–137; BP diastolic 70–100; PULSE 85–88; O2SAT 98; BMI 33.7
[2024-09-26 01:04] LABS: Glucose - Point of Care 154 mg/dl (70-99)
--- NOTE | 2024-09-26 01:05 | PTCARENOTE ---
Received patient from ED via stretcher. Patient pulled over from stretcher to bed with assistance. AAO to self only, denies pain. Oriented patient to room and placed call tejeda within reach.
[2024-09-26] MEDS: ZITHROMAX INFUSION 250 IV (01:36)
[2024-09-26] MEDS: LASIX 20 MG PO ×2 (01:40→09:25)
[2024-09-26 07:09] LABS: Hematocrit 39.9 % (37.0-47.0); Mean Corp Hgb Conc. 32.6 g/dL (33.0-37.0); Mean Corpuscular Hgb 31.4 pg (27.0-31.0); Mean Corpuscular Volume 96.4 fL (81.0-99.0); Mean Platelet Volume 9.3 fL (7.4-10.4); Platelet Count 205 10^3/uL (130-400); Red Blood Cell Count 4.14 10^6/uL (4.20-5.40); Red Cell Dist. Width 13.3 % (11.5-14.5); White Blood Cell Count 11.3 10^3/uL (4.8-10.8)
[2024-09-26 07:35] LABS: Blood Urea Nitrogen 17 mg/dl (7-17); Calcium 8.6 mg/dl (8.4-10.2); Carbon Dioxide 36 mmol/L (22-30); Chloride 95 mmol/L (98-107); Estimated Creatinine Clearance 60 ml/min; Glucose 153 mg/dl (70-99); Potassium 3.9 mmol/L (3.5-5.1); Sodium 138 mmol/L (135-145); eGFR > 60.00
[2024-09-26 08:29] LABS: Glucose - Point of Care 133 mg/dl (70-99)
[2024-09-26] MEDS: NOVOLOG FLEXPEN-LOW RESISTANCE SC ×2 (08:35→17:00)
[2024-09-26] MEDS: DIOVAN 80 MG PO (09:24)
[2024-09-26] MEDS: VITAMIN C 1000 MG PO (09:24)
[2024-09-26] MEDS: ZYLOPRIM 100 MG PO (09:25)
[2024-09-26] MEDS: OSCAL 500 + D 500 MG PO (09:25)
[2024-09-26] MEDS: MYRBETRIQ EXTENDED RELEASE 25 MG PO (09:25)
[2024-09-26] MEDS: CRESTOR 30 MG PO (09:25)
[2024-09-26] MEDS: HEPARIN 5000 UNITS SC ×2 (09:26→16:10)
[2024-09-26] MEDS: KCL 20 MEQ PO ×2 (09:26→20:43)
[2024-09-26] MEDS: DESENEX/MITRAZOL/ZEASORB 1 APPLIC TOPICAL (09:27)
[2024-09-26] MEDS: LEXAPRO 10 MG PO (09:27)
[2024-09-26] MEDS: PROTONIX 20 MG PO ×2 (09:28→20:43)
--- NOTE | 2024-09-26 10:27 | W.PN.HOSP.TC ---
Today's Communication/Plan
-
wean o2 as tolerated
IV rocephin
await Ucx
PT/OT
Assessment / Plan
Assessment / Plan
#Weakness likely 2/2 UTI
UA C&S: pending
Covid and Influenza: negative
- IV antibiotics with rocephin
- PRN O2 titrate as needed to maintain SpO2 >93%
- supportive care
#Acute hypoxic respiratory insufficiency likely 2/2 atelectasis
-wean o2 as tolerated
-IS ordered
-OOB
#hypertension
- continue valsartan
#hyperlipidemia
- continue rosuvastatin
#DM II
- AccuChecks at 8 AC & HS
- hold metformin
- SSI
#dementia unclear if with behavioral disturbances or not.
- continue donepezil, and escitalopram
- Calm this morning
#Chronic HFpEF
-BNP 936
-continue furosemide, and potassium chloride
- CXR with no overt pulm edema
Code Status: Full code
DVT Prophylaxis: heparin sq
PT/OT eval
Anticipated Discharge: > 48 hours
Subjective/Interval History
-
Date of Service: September 26, 2024
Confused
on oxygen
denies sob
Objective Data
-
Labs:
Laboratory Results
09/26/24
06:26
WBC 11.3 H
Hgb 13.0
Hct 39.9
Plt Count 205
Sodium 138
Potassium 3.9
Chloride 95 L
Carbon Dioxide 36 H
BUN 17
Creatinine 0.8
Glucose 153 H
Calcium 8.6
Vital Signs:
Vital Signs
Temp Pulse Resp BP Pulse Ox
98.5 F 110 20 125/80 94
09/26/24 08:20 09/26/24 09:24 09/26/24 08:20 09/26/24 09:24 09/26/24 08:20
I&O
09/25/24 09/26/24 09/27/24
06:59 06:59 06:59
Output Total 600 / 600
Balance -600 / -600
Physical Exam
-
General: Well Developed and No Apparent Distress
HEENT: Normocephalic, Atraumatic, Moist Mucous Membranes and Oxygen
Respiratory: Decreased Breath Sounds
Cardiac: Regular Rhythm and S1/S2; Negative Murmur, Rub or Gallop
GI: Soft, Nontender, Nondistended and Normal Bowel Sounds; Negative Organomegaly
Rectal: Deferred by Provider
Musculoskeletal: No Clubbing, No Cyanosis and No Edema
Skin: Negative Rash
Neuro: Awake, No Motor Deficits and Nonfocal/Grossly Intact
Psych: Apparent Dementia
Data Reviewed
-
Total Time Spent with Patient (in minutes): 55
[2024-09-26 12:25] LABS: Glucose - Point of Care 297 mg/dl (70-99)
[2024-09-26] MEDS: NOVOLOG FLEXPEN-LOW RESISTANCE 3 UNITS SC (13:03)
[2024-09-26 16:39] LABS: Glucose - Point of Care 110 mg/dl (70-99)
[2024-09-26] MEDS: ARICEPT 10 MG PO (20:44)
[2024-09-26] MEDS: MELATONIN 3 MG PO (20:44)
[2024-09-26 21:13] LABS: Glucose - Point of Care 176 mg/dl (70-99)
[2024-09-26] MEDS: ROCEPHIN 1000 MG IV (22:20)
[2024-09-26] MEDS: STERILE WATER FOR INJECTION 10 ML IV (22:20)
[2024-09-27] MEDS: HEPARIN 5000 UNITS SC ×2 (00:05→09:00)
--- NOTE | 2024-09-27 02:16 | DOWNTIME ---
There was a [employer] Downtime on 09/27/2024 from 0100 to 09/27/2023 at 0205 . Downtime documentation of patient's care, including medication administrations, has been reconciled in the electronic record per guidelines. Refer to the
patient's paper chart under the miscellaneous tab to see printed paper medication records and downtime forms.
[2024-09-27 06:00] VITALS: BMI 32.8
[2024-09-27 07:54] VITALS: BP 118/61
[2024-09-27 07:55] LABS: Hematocrit 40.2 % (37.0-47.0); Hemoglobin 13.3 g/dL (12.0-16.0); Mean Corp Hgb Conc. 33.1 g/dL (33.0-37.0); Mean Corpuscular Hgb 31.6 pg (27.0-31.0); Mean Corpuscular Volume 95.5 fL (81.0-99.0); Mean Platelet Volume 9.5 fL (7.4-10.4); Platelet Count 214 10^3/uL (130-400); Red Blood Cell Count 4.21 10^6/uL (4.20-5.40); Red Cell Dist. Width 13.3 % (11.5-14.5); White Blood Cell Count 11.2 10^3/uL (4.8-10.8)
[2024-09-27 08:12] LABS: Glucose - Point of Care 144 mg/dl (70-99)
[2024-09-27 08:20] LABS: Blood Urea Nitrogen 17 mg/dl (7-17); Calcium 8.4 mg/dl (8.4-10.2); Carbon Dioxide 37 mmol/L (22-30); Chloride 92 mmol/L (98-107); Estimated Creatinine Clearance 68 ml/min; Glucose 142 mg/dl (70-99); Potassium 3.9 mmol/L (3.5-5.1); Sodium 137 mmol/L (135-145); eGFR > 60.00
[2024-09-27] MEDS: NOVOLOG FLEXPEN-LOW RESISTANCE SC ×2 (08:59→17:30)
[2024-09-27] MEDS: DESENEX/MITRAZOL/ZEASORB 1 APPLIC TOPICAL (09:00)
[2024-09-27] MEDS: CRESTOR 30 MG PO (09:03)
[2024-09-27] MEDS: DIOVAN 80 MG PO (09:04)
[2024-09-27] MEDS: VITAMIN C 1000 MG PO (09:04)
[2024-09-27] MEDS: MYRBETRIQ EXTENDED RELEASE 25 MG PO (09:05)
[2024-09-27] MEDS: PROTONIX 20 MG PO ×2 (09:05→20:32)
[2024-09-27] MEDS: OSCAL 500 + D 500 MG PO (09:05)
[2024-09-27] MEDS: KCL 20 MEQ PO ×2 (09:06→20:32)
[2024-09-27] MEDS: LASIX 20 MG PO (09:06)
[2024-09-27] MEDS: ZYLOPRIM 100 MG PO (09:06)
[2024-09-27] MEDS: LEXAPRO 10 MG PO (09:07)
[2024-09-27 12:06] LABS: Glucose - Point of Care 252 mg/dl (70-99)
[2024-09-27] MEDS: NOVOLOG FLEXPEN-LOW RESISTANCE 3 UNITS SC (12:48)
--- NOTE | 2024-09-27 13:35 | W.PN.HOSP.TC ---
Today's Communication/Plan
-
PT OT
Encourage incentive spirometry
Wean oxygen as tolerated
Await final urine cultures
Discharge planning
Assessment / Plan
Assessment / Plan
78-year-old female with dementia admitted with weakness
CVS: S1-S2 normal
Chest: few scattered rales
Abdomen: Soft, NT / Bowel sounds present
Extremities: No edema, normal pulses
STRIPPER PRELIMINARY: confused
# Generalized weakness likely secondary to UTI
Urine cultures GNR
COVID and influenza negative
Continue ceftriaxone
# Acute hypoxic respiratory insufficiency
Likely secondary to atelectasis
Incentive spirometry
Wean oxygen as tolerated for sats above 92
# Hypertension-continue valsartan
# Gout-continue allopurinol
# Hyperlipidemia-continue rosuvastatin
# Type 2 diabetes-hemoglobin A1c 8.0
Accu-Cheks and sliding scale coverage
Continue metformin
# Chronic HFpEF
Continue Lasix and potassium
Chest x-ray without any pulmonary edema
# Dementia-Type on clear-continue Aricept
# Depression-continue Celexa
# History of L2-L5 laminectomy fusion instrumentation
# Peptic ulcer disease-continue PPI
# Obesity per BMI
# DVT prophylaxis-Lovenox
# DNR
D/W Nursing
Called and spoke to Caleb Wing power of vp respiratory. Updated the patient's condition. He confirmed DNR which I have made changes to.
Anticipated Discharge: Within 24 hours
Subjective/Interval History
-
Date of Service: September 27, 2024
Objective Data
-
Labs:
Laboratory Results
09/27/24
06:41
WBC 11.2 H
Hgb 13.3
Hct 40.2
Plt Count 214
Sodium 137
Potassium 3.9
Chloride 92 L
Carbon Dioxide 37 H
BUN 17
Creatinine 0.7
Glucose 142 H
Calcium 8.4
Vital Signs:
Vital Signs
Temp Pulse Resp BP Pulse Ox
97.8 F 64 18 115/61 97
09/27/24 07:54 09/27/24 09:04 09/27/24 07:54 09/27/24 09:04 09/27/24 09:00
I&O
09/26/24 09/27/24 09/28/24
06:59 06:59 06:59
Intake Total 240 / 240
Output Total 600 / 600
Balance -600 / -600 240 / 240
--- NOTE | 2024-09-27 13:47 | CM ---
Addendum entered by Koki Reza 09/27/24 14:09:
Per Britany of [facility], pt is completely incontinent of urine and needs assistance for toileting due to dementia. Needs cues and assistance with dressing due to dementia.
She ambulates inconsistently; sometimes uses no device, recently started using a walker.
Plan: CM will continue to follow for discharge planning needs.
PCP: Sangeetha Steel
Pharm: [facility]
Original Note:
Lilian is a resident of [facility]. TT to Britany Beltran, requesting PLOF for Lilian.
Await response and will update PT/OT with information once known.
[2024-09-27] MEDS: GLUCOPHAGE 500 MG PO (15:12)
[2024-09-27 16:04] VITALS: BP 120/64
[2024-09-27 17:24] LABS: Glucose - Point of Care 126 mg/dl (70-99)
[2024-09-27] MEDS: LOVENOX 40 MG SC (17:38)
[2024-09-27] MEDS: ARICEPT 10 MG PO (20:33)
[2024-09-27] MEDS: MELATONIN 3 MG PO (20:33)
[2024-09-27] MEDS: STERILE WATER FOR INJECTION 10 ML IV (21:29)
[2024-09-27] MEDS: ROCEPHIN 1000 MG IV (21:30)
[2024-09-27 21:41] LABS: Glucose - Point of Care 139 mg/dl (70-99)
[2024-09-27 23:55] VITALS: BP 108/73
[2024-09-28 06:00] VITALS: BMI 33.0
[2024-09-28 07:15] VITALS: BP 113/77
[2024-09-28 07:28] LABS: Hematocrit 42.4 % (37.0-47.0); Hemoglobin 13.5 g/dL (12.0-16.0); Mean Corp Hgb Conc. 31.8 g/dL (33.0-37.0); Mean Corpuscular Volume 97.5 fL (81.0-99.0); Mean Platelet Volume 9.4 fL (7.4-10.4); Platelet Count 220 10^3/uL (130-400); Red Blood Cell Count 4.35 10^6/uL (4.20-5.40); Red Cell Dist. Width 13.2 % (11.5-14.5); White Blood Cell Count 9.3 10^3/uL (4.8-10.8)
[2024-09-28 07:35] LABS: Glucose - Point of Care 151 mg/dl (70-99)
[2024-09-28 07:46] LABS: Blood Urea Nitrogen 18 mg/dl (7-17); Calcium 8.7 mg/dl (8.4-10.2); Carbon Dioxide 38 mmol/L (22-30); Chloride 91 mmol/L (98-107); Estimated Creatinine Clearance 60 ml/min; Glucose 147 mg/dl (70-99); Potassium 4.3 mmol/L (3.5-5.1); Sodium 137 mmol/L (135-145); eGFR > 60.00
--- NOTE | 2024-09-28 09:30 | W.PN.HOSP.TC ---
Today's Communication/Plan
-
Discharge to [facility]
AB changed to PO
Assessment / Plan
Assessment / Plan
78-year-old female with dementia admitted with weakness
CVS: S1-S2 normal
Chest: Few scattered rales at bases
Abdomen: Soft, NT / Bowel sounds present
Extremities: No edema, normal pulses
TDP DISPLAYS ANALYST: confused, awake and alert.
# Generalized weakness likely secondary to UTI
E Coli UTI
COVID and influenza negative
Change ceftriaxone to Ceftin
# Acute hypoxic respiratory insufficiency
Likely secondary to atelectasis
Incentive spirometry to be encouraged
Off O2 this am.
# Hypertension-continue valsartan
# Gout-continue allopurinol
# Hyperlipidemia-continue rosuvastatin
# Type 2 diabetes-hemoglobin A1c 8.0
Accu-Cheks and sliding scale coverage
Continue metformin
# Chronic HFpEF
Continue Lasix and potassium
Chest x-ray without any pulmonary edema
# Dementia-Type on clear-continue Aricept
# Depression-continue Celexa
# History of L2-L5 laminectomy fusion instrumentation
# Peptic ulcer disease-continue PPI
# Obesity per BMI
# DVT prophylaxis-Lovenox
# DNR
D/W Nursing
D/W Case management
Called and spoke to Caleb Wing power of weather stripper. Updated the patient's condition. He confirmed DNR which I have made changes to.
More than 30 minutes spent in discharge including
Final examination of the patient
Summarizing hospital stay
Instructions for continuing care to all relevant caregivers
Preparation of discharge records, prescriptions, and referral forms
Total time spent (in minutes): 34 min
Anticipated Discharge: Today
Subjective/Interval History
-
Date of Service: September 28, 2024
Objective Data
-
Labs:
Laboratory Results
09/28/24
06:49
WBC 9.3
Hgb 13.5
Hct 42.4
Plt Count 220
Sodium 137
Potassium 4.3
Chloride 91 L
Carbon Dioxide 38 H
BUN 18 H
Creatinine 0.8
Glucose 147 H
Calcium 8.7
Vital Signs:
Vital Signs
Temp Pulse Resp BP Pulse Ox
98.1 F 85 18 113/77 91
09/28/24 07:15 09/28/24 07:15 09/28/24 07:15 09/28/24 07:15 09/28/24 07:15
I&O
09/27/24 09/28/24 09/29/24
06:59 06:59 06:59
Intake Total 240 / 240 900 / 900
Output Total 400 / 400
Balance 240 / 240 500 / 500
--- NOTE | 2024-09-28 09:46 | W.DS.TRANS ---
DC Summary - Maintenance Advisor
-
Discharge Instructions:
Discharge Diagnosis/Procedures E. coli UTI
Acute hypoxic respiratory insufficiency-
atelectasis
Hypertension
Gout
Hyperlipidemia
Type 2 diabetes
Chronic HFpEF
Dementia
Depression
Peptic ulcer disease
Obesity
DNR status
Diet Restrict fluids to 64 oz,2 Gram Sodium,Diabetic,
Carb Controlled
Activity With assistance,As tolerated
Driving Restrictions No driving
Other Services PT,OT
Specialty Instructions Weigh Daily
Instructions:
Stand-Alone Forms:
Changes to Home Medications: Yes
Discharge Medications:
DC Medications w/original date entered in [employer]
ascorbic acid (vitamin C) 500 mg tablet 1,000 mg PO DAILY Supplement 07/03/23
donepezil 10 mg tablet (Aricept) 10 mg PO HS Mental Health/Anxiety 07/03/23
metformin 500 mg tablet 500 mg PO NOON Diabetes 07/03/23
nystatin 100,000 unit/gram topical powder 1 applic topical DAILY skin rash 07/03/23
acetaminophen 325 mg tablet 650 mg PO Q4HPRN PRN mild pain 06/23/24
allopurinol 100 mg tablet 100 mg PO DAILY Gout 06/23/24
aluminum-mag hydroxide-simethicone 400 mg-400 mg-40 mg/5 mL oral susp (Mylanta Maximum Strength) 10 ml PO Q4HPRN PRN nausea 06/23/24
calcium 600 mg (as carbonate)-vitamin D3 10 mcg (400 unit) tablet (Calcium 600 + D(3)) 1 tab PO DAILY Supplement 06/23/24
dextromethorphan-guaifenesin 5 mg-100 mg/5 mL oral liquid (Robitussin Cough-Chest Congestion DM) 10 ml PO Q4HPRN PRN cough 06/23/24
escitalopram oxalate 10 mg tablet 10 mg PO DAILY Mental Health/Anxiety 06/23/24
estradiol 0.01% (0.1 mg/gram) vaginal cream (Estrace) 1 g vaginal MOTH HORMONE 06/23/24
melatonin 3 mg tablet 3 mg PO HS Sleep 06/23/24
mirabegron 25 mg tablet,extended release 24 hr (Myrbetriq) 25 mg PO DAILY OAB 06/23/24
pantoprazole 20 mg tablet,delayed release (Protonix) 20 mg PO BID GERD 06/23/24
potassium chloride 20 mEq tablet,extended release(part/cryst) 20 meq PO BID Supplement 06/23/24
rosuvastatin 20 mg tablet 30 mg PO DAILY High Cholesterol 06/23/24
valsartan 80 mg tablet 80 mg PO DAILY Blood Pressure 06/23/24
zinc oxide-vitamin B5-vit E 11.3% topical cream (Balmex Adult Care) 1 applic topical BIDPRN PRN sacral area redness 06/23/24
furosemide 20 mg tablet (Lasix) 20 mg PO DAILY Fluid Retention/Swelling 09/25/24
furosemide 20 mg tablet (Lasix) 20 mg PO MOWEFR Fluid Retention/Swelling 09/25/24
metformin 1,000 mg tablet 1,000 mg PO DAILY Diabetes 09/25/24
cefuroxime axetil 500 mg tablet 500 mg PO BID Infection #0 tabs 09/28/24
Home Medication Changes
new
cefuroxime axetil 500 mg tablet 500 mg PO BID Infection #0 tabs 09/28/24
Pending Results: No
[2024-09-28] MEDS: NOVOLOG FLEXPEN-LOW RESISTANCE 1 UNITS SC (10:05)
[2024-09-28] MEDS: CRESTOR 30 MG PO (10:06)
[2024-09-28] MEDS: MYRBETRIQ EXTENDED RELEASE 25 MG PO (10:06)
[2024-09-28] MEDS: DIOVAN 80 MG PO (10:06)
[2024-09-28] MEDS: OSCAL 500 + D 500 MG PO (10:06)
[2024-09-28] MEDS: LASIX 20 MG PO (10:06)
[2024-09-28] MEDS: PROTONIX 20 MG PO ×2 (10:06→20:04)
[2024-09-28] MEDS: LEXAPRO 10 MG PO (10:10)
[2024-09-28] MEDS: KCL 20 MEQ PO ×2 (10:10→20:04)
[2024-09-28] MEDS: GLUCOPHAGE 1000 MG PO (10:10)
[2024-09-28] MEDS: VITAMIN C 1000 MG PO (10:10)
[2024-09-28] MEDS: ZYLOPRIM 100 MG PO (10:10)
[2024-09-28] MEDS: DESENEX/MITRAZOL/ZEASORB 1 APPLIC TOPICAL (10:31)
[2024-09-28 10:35] LABS: ALT (SGPT) 22 U/L (0-35); AST (SGOT) 67 U/L (14-36); Albumin 3.7 g/dl (3.5-5.0); Alkaline Phosphatase 155 U/L (38-126); Direct Bilirubin 0.1 mg/dl (0.0-0.4); Total Bilirubin 0.3 mg/dl (0.2-1.3); Total Protein 6.5 g/dl (6.3-8.2)
[2024-09-28 11:48] LABS: Glucose - Point of Care 201 mg/dl (70-99)
--- NOTE | 2024-09-28 13:00 | PTCARENOTE ---
Segun discontinued this shift. Incontinent of BM.
--- NOTE | 2024-09-28 13:07 | CM ---
Addendum entered by Koki Reza 09/28/24 15:42:
Pt discharge was canceled due to tachycardia. Caleb Wing and Harvey Kelly notified of same.
CM will continue to follow to coordinate transfer when medically stable.
Original Note:
Pt cleared for discharge to [facility]; 1445 miner pick time scheduled.
CM called contact Caleb Wing to provide update re: pt's discharge.
Plan: Transfer to [facility] today at 2:4pm via ambulance with O2.
[facility] Report: [phone]
[facility]
[2024-09-28 14:21] VITALS: BP 115/83
[2024-09-28] MEDS: NOVOLOG FLEXPEN-LOW RESISTANCE 2 UNITS SC (14:24)
[2024-09-28] MEDS: GLUCOPHAGE 500 MG PO (14:25)
--- NOTE | 2024-09-28 14:44 | PTCARENOTE ---
Discharge vitals with noted HR of 125. BP 113/77. Patient sleeping at this time. Hospitalist made aware. Ekg ordered. S.tach. Discharged to be cancelled. Will continue to monitor.
--- NOTE | 2024-09-28 14:56 | PN.CDI ---
CDI
- -
CDI:
Physician Documentation Request
Admit Date: 09/25/24 23:32
Dear Doctor Eva,
Patient admitted with UTI.
09/28 PN, 'E Coli UTI....Change ceftriaxone to Ceftin.'
On admission, HR> 90 and RR>20.
Please clarify which of the following most accurately describes the status of the patient's infection:
Sepsis, POA
UTI only
Other
Sepsis
- Systemic manifestations of infection, with 2 or more SIRS criteria which include:
- Fever >100.4 degrees F or hypothermia < 96.8 degrees F
- Leukocytosis - WBC > 12,000 or leukopenia - WBC < 4,000 or > 10% bands
- Tachycardia > 90 beats per minute
- Tachypnea - RR > 20 breaths per minute or PaCO2 , 32mmHg
Source: Merck Manual 2013
- Indicate the known or suspected organism
- Indicate the known or suspected underlying infection, such as UTI
Localized Infection Only, Without Systemic Illness
- indicate the site/source, such as UTI
Other
Use of terms such as suspected, likely, concern for, or probable (associated with a specific diagnosis that is being evaluated, monitored, or treated as if it exists) are acceptable and can be coded in the inpatient setting, when documented at the
time of discharge.
Thank you,
Danae RAM,RN,CCDS
CDI Specialist
Available via [place] text
Please use your independent medical judgment in providing your response.
[2024-09-28 15:30] VITALS: BP 115/74
[2024-09-28] MEDS: LOPRESSOR 2.5 MG IV (15:47)
--- NOTE | 2024-09-28 16:19 | PTCARENOTE ---
HR 80 post IV Lopressor administration.
[2024-09-28 16:43] LABS: Glucose - Point of Care 118 mg/dl (70-99)
[2024-09-28] MEDS: NOVOLOG FLEXPEN-LOW RESISTANCE SC (17:00)
[2024-09-28] MEDS: LOVENOX 40 MG SC (17:23)
[2024-09-28] MEDS: NSS 250 IV (19:00)
[2024-09-28] MEDS: CEFTIN 500 MG PO (20:04)
[2024-09-28 21:11] LABS: Glucose - Point of Care 146 mg/dl (70-99)
[2024-09-28] MEDS: ARICEPT 10 MG PO (21:36)
[2024-09-28] MEDS: MELATONIN 3 MG PO (21:36)
--- NOTE | 2024-09-28 22:00 | W.PN.UPDATE ---
Update Note
Progress Note Update
Patient noted in sinus tachycardia (asymptomatic) other vss. Apparently was seen in ED Jun 2024 for similar issue which resolved and she was sent back to her group home. She has hx of aortic stenosis and was followed by Cardiology service
[facility]. Similar HR noted earlier today and she was given lopressor for rate control and HR improved. Harvey Kelly [place] made aware she will likely need to follow up as outpatient. Last echocardiogram was completed in Aug 2024 and read by Andrey
H[place]. Also clarified Lasix order to be 20 mg po daily.
== END 2024-09-28 22:06 | DRG 690 ==
LOC: 4 EAST ACU 23:32
PROVIDERS: Emergency Medicine; Nurse Practitioner; Nurse Practitioner Family; ADMITTING PHYSICIAN Internal Medicine; ATTENDING PHYSICIAN Hospitalist; EMERGENCY PHYSICIAN Emergency Medicine; FAMILY PHYSICIAN Nurse Practitioner Gerontology
DX: N39.0 Urinary tract infection, site not specified (principal); J98.11 Atelectasis; I13.0 Hypertensive heart and chronic kidney disease with heart failure and stage 1 through stage 4 chronic kidney disease, or unspecified chronic kidney disease; I50.32 Chronic diastolic (congestive) heart failure; B96.20 Unspecified Escherichia coli [E. coli] as the cause of diseases classified elsewhere; R09.02 Hypoxemia; R06.89 Other abnormalities of breathing; N18.9 Chronic kidney disease, unspecified; E11.22 Type 2 diabetes mellitus with diabetic chronic kidney disease; E78.00 Pure hypercholesterolemia, unspecified; M1A.9XX0 Chronic gout, unspecified, without tophus (tophi); F03.90 Unspecified dementia, unspecified severity, without behavioral disturbance, psychotic disturbance, mood disturbance, and anxiety; F32.A Depression, unspecified; Z87.11 Personal history of peptic ulcer disease; Z66 Do not resuscitate; E66.9 Obesity, unspecified; Z68.33 Body mass index [BMI] 33.0-33.9, adult; Z79.84 Long term (current) use of oral hypoglycemic drugs; I48.91 Unspecified atrial fibrillation; Z11.52 Encounter for screening for COVID-19
CPT/HCPCS: 71046; 71275; 80048; 80053; 81003; 81015; 82248; 82962; 83036; 83880; 84484; 85025; 85027; 87070; 87077; 87086; 87186; 87449; 87502; 87811; 87899; 93005; 96361; 96374; 97163; 97167; 97530; 99285; Q9967

== ENCOUNTER → 2024-10-01 13:53 | Outpatient (REF) | payer MEDICARE, BC, SELFPAY ==
[2024-10-01 14:06] LABS: % Basophils 0.3 % (0-2); % Immature Granulocytes 0.9 % (0-0.5); % Lymphocytes 10.9 % (20.5-51.1); % Monocytes 7.3 % (1.7-9.3); % Neutrophils 80.6 % (42.2-75.2); Absolute Basophils 0.1 10^3/uL (0-0.2); Absolute Immature Granulocytes 0.1 10^3/uL (0-0.05); Absolute Lymphocytes 1.6 10^3/uL (1.2-3.4); Absolute Monocytes 1.1 10^3/uL (0.1-0.6); Absolute Neutrophils 11.7 10^3/uL (1.4-6.5); Hematocrit 44.4 % (37.0-47.0); Hemoglobin 14.1 g/dL (12.0-16.0); Mean Corp Hgb Conc. 31.8 g/dL (33.0-37.0); Mean Corpuscular Hgb 30.9 pg (27.0-31.0); Mean Corpuscular Volume 97.4 fL (81.0-99.0); Mean Platelet Volume 9.7 fL (7.4-10.4); Nucleated Red Blood Cells % 0 %; Platelet Count 310 10^3/uL (130-400); Red Blood Cell Count 4.56 10^6/uL (4.20-5.40); Red Cell Dist. Width 13.6 % (11.5-14.5); White Blood Cell Count 14.5 10^3/uL (4.8-10.8)
[2024-10-01 14:34] LABS: Blood Urea Nitrogen 49 mg/dl (7-17); Calcium 9.9 mg/dl (8.4-10.2); Carbon Dioxide 24 mmol/L (22-30); Chloride 100 mmol/L (98-107); Glucose 292 mg/dl (70-99); Potassium 4.8 mmol/L (3.5-5.1); Sodium 142 mmol/L (135-145); eGFR 35.45
[2024-10-01 16:08] LABS: Prolactin 28.1 ng/ml (3.0-18.6)
== END ==
LOC: OIDL 13:53
PROVIDERS: ATTENDING PHYSICIAN Family Medicine
DX: N18.9 Chronic kidney disease, unspecified (principal); N39.0 Urinary tract infection, site not specified; E11.9 Type 2 diabetes mellitus without complications; J98.11 Atelectasis; J96.01 Acute respiratory failure with hypoxia
CPT/HCPCS: 80048; 84146; 85025

== ENCOUNTER 2024-10-02 15:42 | Inpatient (IN) | payer MEDICARE, BC, SELFPAY ==
[2024-10-02] VITALS (12 sets, daily range): BP systolic 101–118; BP diastolic 66–82; BMI 32.0; BMI 31.5
[2024-10-02 11:42] LABS: % Basophils 0.4 % (0-2); % Eosinophils 0.1 % (0-6); % Immature Granulocytes 0.8 % (0-0.5); % Lymphocytes 9.8 % (20.5-51.1); % Neutrophils 80.9 % (42.2-75.2); Absolute Basophils 0.1 10^3/uL (0-0.2); Absolute Immature Granulocytes 0.1 10^3/uL (0-0.05); Absolute Lymphocytes 1.4 10^3/uL (1.2-3.4); Absolute Monocytes 1.1 10^3/uL (0.1-0.6); Absolute Neutrophils 11.4 10^3/uL (1.4-6.5); Hematocrit 43.8 % (37.0-47.0); Mean Corpuscular Hgb 31.1 pg (27.0-31.0); Mean Corpuscular Volume 97.3 fL (81.0-99.0); Mean Platelet Volume 9.4 fL (7.4-10.4); Nucleated Red Blood Cells % 0 %; Platelet Count 339 10^3/uL (130-400); Red Cell Dist. Width 13.6 % (11.5-14.5); White Blood Cell Count 14.1 10^3/uL (4.8-10.8)
[2024-10-02 11:50] LABS: Blood Urea Nitrogen 61 mg/dl (7-17); Calcium 10.1 mg/dl (8.4-10.2); Carbon Dioxide 33 mmol/L (22-30); Chloride 102 mmol/L (98-107); Estimated Creatinine Clearance 28 ml/min; Glucose 215 mg/dl (70-99); Potassium 4.4 mmol/L (3.5-5.1); Sodium 144 mmol/L (135-145)
[2024-10-02 11:53] LABS: COVID-19 Antigen Negative (Negative)
[2024-10-02] MEDS: NSS 1000 IV ×2 (13:45→20:44)
[2024-10-02] MEDS: TYLENOL/FEVERALL 650 MG RECTAL (13:47)
[2024-10-02 13:59] LABS: Urine Albumin 1+ (Neg - Trace); Urine Bilirubin Negative (Negative); Urine Character Clear (Clear); Urine Color Yellow; Urine Glucose Negative (Negative); Urine Ketone Negative (Negative); Urine Leukocyte Negative (Negative); Urine Nitrite Negative (Negative); Urine Occult Blood 2+ (Negative); Urine Urobilinogen Negative (Neg - 1+)
[2024-10-02 14:10] LABS: Urine Red Blood Cell 0-2 /HPF (0-2); Urine White Cell 0-2 /HPF (0-5)
--- NOTE | 2024-10-02 14:28 | HPS.HSE ---
Family Physician
-
Family Physician: Anderson Tinajero MD
Chief Complaint
-
hypoxia
History of Present Illness
Patient is a 78-year-old female with past medical history significant for hypertension, hyperlipidemia, DM II, CKD, HFpEF and dementia who presented to [facility] from senior care with reported hypoxia and fever. Patient recently hospitalized
for similar being discharged on 09/28/2024. Patient today AAO to her self only and unable to provide any history. NH reported patient as hypoxic and febrile today. ED documentation reports low-grade temp and hypoxia requiring 6L O2 via NC to
maintain SpO2 >93%.
Medical History
Past Medical History
Past Medical History: Reports Other
Additional Past Medical History:
benign hypertension
hyperlipidemia
DM II
CKD
dementia
HFpEF
Past Surgical History: Reports Other
Additional Past Surgical History:
right total knee
right inguinal hernia
lumbar fusion
appendectomy
tonsillectomy
Social History
Unable to obtain full social history at this time due to: Dementia
Family History
Family History: Unable to Obtain
Allergies / Home Medications
Allergies reflects when Allergies were last updated in [employer].
Home Medications with original date entered in [employer]
Allergy/Medication List:
Allergies
Allergy/AdvReac Type Severity Reaction Status Date / Time
No Known Drug Allergies Allergy - Verified 10/02/24 10:07
seasonal Allergy mild Uncoded 10/02/24 10:07
congestion,
sneezing,
post nasal
drip
Home Medications
ascorbic acid (vitamin C) 500 mg tablet 1,000 mg PO DAILY Supplement 07/03/23
donepezil 10 mg tablet (Aricept) 10 mg PO HS Mental Health/Anxiety 07/03/23
metformin 500 mg tablet 500 mg PO DAILY Diabetes 07/03/23
nystatin 100,000 unit/gram topical powder 1 applic topical DAILY belly folds 07/03/23
acetaminophen 325 mg tablet 650 mg PO Q4HPRN PRN mild pain 06/23/24
allopurinol 100 mg tablet 100 mg PO DAILY Gout 06/23/24
dextromethorphan-guaifenesin 5 mg-100 mg/5 mL oral liquid (Robitussin Cough-Chest Congestion DM) 10 ml PO Q4HPRN PRN cough 06/23/24
escitalopram oxalate 10 mg tablet 10 mg PO DAILY Mental Health/Anxiety 06/23/24
estradiol 0.01% (0.1 mg/gram) vaginal cream (Estrace) 0 g vaginal MOTH Hormonal Agent 06/23/24
melatonin 3 mg tablet 3 mg PO HS Sleep 06/23/24
mirabegron 25 mg tablet,extended release 24 hr (Myrbetriq) 25 mg PO DAILY OAB 06/23/24
pantoprazole 20 mg tablet,delayed release (Protonix) 20 mg PO BID GERD 06/23/24
potassium chloride 20 mEq tablet,extended release(part/cryst) 20 meq PO BID Supplement 06/23/24
rosuvastatin 20 mg tablet 30 mg PO DAILY High Cholesterol 06/23/24
valsartan 80 mg tablet 80 mg PO DAILY Blood Pressure 06/23/24
zinc oxide-vitamin B5-vit E 11.3% topical cream (Balmex Adult Care) 1 applic topical BIDPRN PRN sacral area redness 06/23/24
furosemide 20 mg tablet (Lasix) 20 mg PO DAILY Fluid Retention/Swelling 09/25/24
metformin 1,000 mg tablet 1,000 mg PO QPM Diabetes 09/25/24
cefuroxime axetil 500 mg tablet 500 mg PO BID Infection #0 tabs 09/28/24
aluminum-mag hydroxide-simethicone 400 mg-400 mg-40 mg/5 mL oral susp (Mylanta Maximum Strength) 10 ml PO Q4HPRN PRN gerd 10/02/24
bisacodyl 10 mg rectal suppository (Dulcolax (bisacodyl)) 10 mg TN DAILYPRN PRN if no bm by 5th day and/or aftr mom 10/02/24
calcium 600 mg (as carbonate)-vit D3 10 mcg (400 unit) chewable tablet (Calcium 600 with Vitamin D3) 1 tab PO DAILY Supplement 10/02/24
magnesium hydroxide 400 mg/5 mL oral suspension (Milk of Magnesia) 2,400 mg PO DAILYPRN PRN if no bm by 4th day 10/02/24
sodium phosphates 19 gram-7 gram/118 mL enema (Fleet Enema) 118 ml TN DAILYPRN PRN if no bm by 6th day 10/02/24
Review of Systems
-
Unable to obtain full review of systems at this time due to: Dementia
History Source: [facility] (documentation and report recieved)
Constitutional: Reports Fever and Fatigue
Respiratory: Reports Other (hypoxic)
Physical Exam
Vital Signs
Vital Signs
Temp Pulse Resp BP Pulse Ox
100.2 F 143 28 118/82 94
10/02/24 11:19 10/02/24 12:30 10/02/24 12:30 10/02/24 12:00 10/02/24 12:30
Physical Exam
General: Well Developed, Well Nourished, Fever and Obese
HEENT: NormoCephalic, Moist mucous membranes, Atraumatic, [place] Conjunctivae, Nose Appears Normal and Ears Appear Normal
Respiratory: Clear and Rhonchi
Cardiac: S1/S2, Irregular Rhythm and Tachycardia; No Murmur, Rub or Gallop
Breast: Deferred by me
GI: Soft, Non Tender and Normal Bowel Sounds; No Organomegaly
Rectal: Deferred by Provider
Genito-urinary: Deferred by me
Musculoskeletal: No Clubbing, No Cyanosis and No Edema
Skin: Warm and IV/Catheter Site; No Rash
Neuro: Sedated
Psych: Confused
Laboratory Results
-
10/02/24 10:57
10/02/24 10:57
Data Reviewed
-
Diagnostic Radiology: Report Reviewed by me (CXR: Low lung volumes without focal airspace disease or pulmonary edema.)
Medical Tests (Nuc Med, Echo, EKG etc): Report Reviewed by me (EKG: SINUS TACHYCARDIA WITH PREMATURE SUPRAVENTRICULAR COMPLEXES LEFT ANTERIOR FASCICULAR BLOCK LEFT VENTRICULAR HYPERTROPHY WITH REPOLARIZATION ABNORMALITY ( R in aVL , [employer] product
))
Lab Data: Labs Reviewed by me (WBC 14.1, BUN 61, Creat 1.7)
Impression/Plan
-
IMPRESSION/PLAN:
#hypoxia
CXR: Low lung volumes without focal airspace disease or pulmonary edema.
Covid and Influenza: negative
Blood Cultures: pending
- Admit to telemetry
- NSS 70cc/hr
- CT chest/abd/pelvis pending
#benign hypertension
- continue valsartan
#hyperlipidemia
- continue rosuvastatin
#DM II
- AccuChecks AC & HS
- hold metformin
- SSI
#CKD
BUN 61, Creat 1.7
- monitor BMP
- hold furosemide
#dementia
- continue donepezil, and escitalopram
#HFpEF
EKG: SINUS TACHYCARDIA WITH PREMATURE SUPRAVENTRICULAR COMPLEXES
LEFT ANTERIOR FASCICULAR BLOCK
LEFT VENTRICULAR HYPERTROPHY WITH REPOLARIZATION ABNORMALITY ( R in aVL ,
[place] product )
ABNORMAL ECG
ECHO (08/23/2024): Left ventricle is small in size with mild concentric left ventricular
hypertrophy and normal systolic function. LVEF 58%.
Stage II diastolic dysfunction suggestive of abnormal relaxation and increased
filling pressures.
Normal right ventricular size and function.
Mild mitral stenosis.
Moderate aortic stenosis (peak/mean 34/21 mmHg, JODI 1.2 cm2).
- daily weights
- continue potassium chloride
- hold furosemide
Code status: DNR
DVT Prophylaxis: Heparin sq
[2024-10-02] MEDS: ZOSYN 50 IV ×2 (16:10→23:31)
[2024-10-02] MEDS: VANCOCIN 540 MG IV (16:51)
--- NOTE | 2024-10-02 20:45 | PTCARENOTE ---
Received patient from ED via stretcher. Patient pulled over from stretcher to bed with assistance. AAO to self only, denies pain. Oriented patient to room and placed call tejeda within reach.
--- NOTE | 2024-10-02 20:49 | PHA.VAN.IN ---
Assessment
- Assessment
Renal Function: Appears elevated from baseline (09/28/24 BASELINE SCR: 0.8)
Concomitant Antimicrobials: ZOSYN
- Previous Dosing Experience
Previous Regimen: NONE
Plan
- Plan
Initial / Loading Dose: 2GM
Maintenance Regimen: DOSING BY RANDOM LEVEL
Monitoring: RANDOM VANCOMYCIN LEVEL 10/03/24 AM
Pharmacokinetics Vancomycin I
- -
Patient Age: 78
Patient Sex: Female
Vancomycin Day #: 1
Indication: Other
Requesting Provider: NORA
Height / Weight:
Height 5 ft 3 in
Actual Weight 82 kg
Pertinent Past Medical History: RECENT ADMIT
- Vital Signs / Lab Results
Temp Pulse Resp BP Pulse Ox
100.7 F H 112 29 114/76 96
10/02/24 13:40 10/02/24 20:15 10/02/24 20:15 10/02/24 20:00 10/02/24 18:15
Lab Results - Hematology
10/02/24
10:57
WBC 14.1 H
Lab Results - Chemistry
10/02/24
10:57
BUN 61 H
Creatinine 1.7 H
Estimated Creat Clear 28
Lab Results - Urine
10/02/24
13:47
Urine Nitrite (Reflex) Negative
Leukocyte Esterase Rfl Negative
Urine WBC (Reflex) 0-2
Ur Squamous Epith Cells 3-5
Microbiology Results
10/02/24 10:57 Influenza Types A & B (JOAQUIN) - Final
Nasal Swab Negative for Influenza A & B, NAAT
Negative results must be combined with clinical observations
and patient history.
Nucleic Acid Amplification test (NAAT)performed on the
[employer] platform.
10/02/24 10:57 Respiratory Syncytial Virus Ag - Final
Nasal Swab Negative for Respiratory Syncytial Virus.
A false negative result may be obtained with a specimen
collected early in the acute phase. If symptoms persist, a
new specimen should be tested.
[2024-10-02] MEDS: PROTONIX 20 MG PO (23:32)
[2024-10-02] MEDS: KCL 20 MEQ PO (23:33)
[2024-10-02] MEDS: ARICEPT 10 MG PO (23:33)
[2024-10-02] MEDS: HEPARIN 5000 UNITS SC (23:33)
[2024-10-02] MEDS: MELATONIN 3 MG PO (23:33)
[2024-10-03 03:00] VITALS: BP 107/72
[2024-10-03] MEDS: ZOSYN 50 IV ×4 (05:27→21:22)
[2024-10-03 07:22] LABS: Hematocrit 42.4 % (37.0-47.0); Hemoglobin 12.8 g/dL (12.0-16.0); Mean Corp Hgb Conc. 30.2 g/dL (33.0-37.0); Mean Corpuscular Hgb 30.3 pg (27.0-31.0); Mean Corpuscular Volume 100.5 fL (81.0-99.0); Mean Platelet Volume 9.2 fL (7.4-10.4); Platelet Count 307 10^3/uL (130-400); Red Blood Cell Count 4.22 10^6/uL (4.20-5.40); Red Cell Dist. Width 13.9 % (11.5-14.5); White Blood Cell Count 13.1 10^3/uL (4.8-10.8)
[2024-10-03 07:43] LABS: Vancomycin Random 14.2 ug/ml
[2024-10-03 07:48] LABS: Blood Urea Nitrogen 56 mg/dl (7-17); Calcium 8.8 mg/dl (8.4-10.2); Carbon Dioxide 35 mmol/L (22-30); Chloride 105 mmol/L (98-107); Estimated Creatinine Clearance 36 ml/min; Glucose 162 mg/dl (70-99); Potassium 5.1 mmol/L (3.5-5.1); Sodium 147 mmol/L (135-145); eGFR 42.09
[2024-10-03 08:22] VITALS: BP 115/75
[2024-10-03] MEDS: DIOVAN 80 MG PO (09:25)
[2024-10-03] MEDS: PROTONIX 20 MG PO ×2 (09:25→20:26)
[2024-10-03] MEDS: CRESTOR 30 MG PO (09:26)
[2024-10-03] MEDS: OSCAL 500 + D 500 MG PO (09:30)
[2024-10-03] MEDS: ZYLOPRIM 100 MG PO (09:30)
[2024-10-03] MEDS: HEPARIN 5000 UNITS SC ×2 (09:30→16:55)
[2024-10-03] MEDS: MYRBETRIQ EXTENDED RELEASE 25 MG PO (09:30)
[2024-10-03] MEDS: LEXAPRO 10 MG PO (09:30)
[2024-10-03] MEDS: KCL 20 MEQ PO (09:30)
[2024-10-03] MEDS: DESENEX/MITRAZOL/ZEASORB 1 APPLIC TOPICAL (09:38)
--- NOTE | 2024-10-03 09:51 | PHA.VAN.FU ---
Vancomycin Assessment / Plan
- Assessment
Renal Function: SCR Decreasing
WBC's are: Trending Down
In the past 24 hrs, patient has been: Febrile
Concomitant Antimicrobials: Piperacillin/Tazobactam
- Assessment - Therapeutic Drug Monitoring
Random Level: 14.2
- Dosing Plan
Dosing by Level: Re-dose today (750mg)
- Monitoring Plan
Random Level: 10/04/24 @0600
- Follow Up
Pharmacy will continue to follow.
Vancomycin Follow UP
- -
Patient Age: 78
Patient Sex: Female
Vancomycin Day #: 2
Indication: Other
Requesting Provider: NORA
Height / Weight:
Height 5 ft 3 in
Actual Weight 80.603 kg
Pertinent Past Medical History: RECENT ADMIT
- Vital Signs / Lab Results
Temp Pulse Resp BP Pulse Ox
97.8 F 91 24 115/75 97
10/03/24 08:22 10/03/24 08:22 10/03/24 08:22 10/03/24 08:22 10/03/24 08:22
Lab Results - Hematology
10/02/24 10/03/24
10:57 06:33
WBC 14.1 H 13.1 H
Lab Results - Chemistry
10/02/24 10/03/24
10:57 06:33
BUN 61 H 56 H
Creatinine 1.7 H 1.3 H
Estimated Creat Clear 28 36
Lab Results - Urine
10/02/24
13:47
Urine Nitrite (Reflex) Negative
Leukocyte Esterase Rfl Negative
Ur Squamous Epith Cells 3-5
Microbiology Results
10/02/24 10:57 Influenza Types A & B (JOAQUIN) - Final
Nasal Swab Negative for Influenza A & B, NAAT
Negative results must be combined with clinical observations
and patient history.
Nucleic Acid Amplification test (NAAT)performed on the
[employer] platform.
10/02/24 10:57 Respiratory Syncytial Virus Ag - Final
Nasal Swab Negative for Respiratory Syncytial Virus.
A false negative result may be obtained with a specimen
collected early in the acute phase. If symptoms persist, a
new specimen should be tested.
Therapeutic Drug Monitoring
Random Vancomycin 14.2 ug/ml 10/03/24 06:33
[2024-10-03] MEDS: VANCOCIN 150 IV (10:37)
[2024-10-03 11:56] LABS: Glucose - Point of Care 215 mg/dl (70-99)
[2024-10-03 12:09] VITALS: BP 110/77
[2024-10-03] MEDS: NOVOLOG FLEXPEN-LOW RESISTANCE 2 UNITS SC (13:13)
[2024-10-03] MEDS: NSS 1000 IV (13:14)
[2024-10-03 15:15] VITALS: BP 114/82
--- NOTE | 2024-10-03 16:22 | W.PN.HOSP.TC ---
Today's Communication/Plan
-
Assessment / Plan
Assessment / Plan
Gen-AAOx3, NAD
HEENT-NC, AT, anicteric, clear oral mm, nasal cannula in place
Neck-supple
CV-reg, no M, +S1/S2
Lungs-clear B/L
Abd-soft, NT, ND
Musculoskeletal-no edema, no deformity
Skin-warm and dry
Neuro-grossly non-focal
Psych-calm, cooperative
Ms. Magdaleno is a 78-year-old female with a medical history of HFpEF, dementia, diabetes mellitus, hypertension, and CKD who presented from her nursing facility with hypoxia and fever. She had recently been discharged on 09/28/2024 after treatment
for a UTI. She was also found to be in A-fib with RVR. She was admitted for treatment of sepsis.
Sepsis and acute hypoxic respiratory failure:
-Initially requiring 6 L via nasal cannula, now titrated down to 3 L and breathing comfortably
-No clear evidence of pulmonary infection or edema on chest imaging although this would be my highest suspicion considering hypoxia
-Respiratory panel negative for COVID and influenza
-Did have a low-grade fever of 100.7 �F tachycardia and a leukocytosis, started on broad-spectrum biotics, follow-up blood cultures
-Continue resuscitative fluids with NS at 70 cc/h
-Heart rate now better controlled with above-mentioned treatment, there was mention of A-fib with RVR although appears to be sinus tachycardia on EKG, will monitor
HFpEF:
-Recent echo 08/23/2024 shows preserved ejection fraction with stage II diastolic dysfunction
-Holding home Lasix while giving IV fluids, will restart as appropriate
-Afterload reduction with valsartan
Diabetes mellitus:
-Holding home metformin
-Continue sliding scale insulin for now
CODE STATUS: DNR
Anticipated Discharge: 24 - 48 hours
Subjective/Interval History
-
Date of Service: October 03, 2024
Ms. Magdaleno was seen and examined at bedside this morning. She was sitting comfortably in bed and enjoying breakfast on 3 L of supplemental oxygen via nasal cannula.
Objective Data
-
Labs:
Laboratory Results
10/03/24
06:33
WBC 13.1 H
Hgb 12.8
Hct 42.4
Plt Count 307
Sodium 147 H
Potassium 5.1
Chloride 105
Carbon Dioxide 35 H
BUN 56 H
Creatinine 1.3 H
Glucose 162 H
Calcium 8.8
Vital Signs:
Vital Signs
Temp Pulse Resp BP Pulse Ox
98.8 F 90 20 114/82 99
10/03/24 15:15 10/03/24 15:15 10/03/24 15:15 10/03/24 15:15 10/03/24 15:15
I&O
10/02/24 10/03/24 10/04/24
06:59 06:59 06:59
Output Total 550 / 550
Balance -550 / -550
Review of Systems
-
History Source: Patient
All other systems: Reviewed and negative
Physical Exam
-
General: No Apparent Distress
[2024-10-03 17:06] LABS: Glucose - Point of Care 117 mg/dl (70-99)
[2024-10-03] MEDS: NOVOLOG FLEXPEN-LOW RESISTANCE SC (18:02)
[2024-10-03 19:25] VITALS: BP 100/65
[2024-10-03] MEDS: KCL PO (20:11)
[2024-10-03] MEDS: MELATONIN 3 MG PO (20:27)
[2024-10-03] MEDS: ARICEPT 10 MG PO (20:27)
[2024-10-03 21:51] LABS: Glucose - Point of Care 126 mg/dl (70-99)
[2024-10-03 22:45] VITALS: BP 97/65
[2024-10-04] MEDS: HEPARIN 5000 UNITS SC ×3 (01:08→17:10)
[2024-10-04 03:34] VITALS: BP 98/64
[2024-10-04] MEDS: NSS 1000 IV (04:52)
[2024-10-04] MEDS: ZOSYN 50 IV ×4 (04:52→21:00)
[2024-10-04 06:00] VITALS: BMI 31.7
[2024-10-04 07:05] VITALS: BP 112/82
[2024-10-04 07:21] LABS: Glucose - Point of Care 134 mg/dl (70-99)
[2024-10-04 07:29] LABS: Hematocrit 41.8 % (37.0-47.0); Hemoglobin 13.1 g/dL (12.0-16.0); Mean Corp Hgb Conc. 31.3 g/dL (33.0-37.0); Mean Corpuscular Hgb 31.2 pg (27.0-31.0); Mean Corpuscular Volume 99.5 fL (81.0-99.0); Mean Platelet Volume 9.6 fL (7.4-10.4); Platelet Count 268 10^3/uL (130-400); Red Cell Dist. Width 13.3 % (11.5-14.5); White Blood Cell Count 11.2 10^3/uL (4.8-10.8)
[2024-10-04 07:49] LABS: Blood Urea Nitrogen 46 mg/dl (7-17); Calcium 9.2 mg/dl (8.4-10.2); Carbon Dioxide 29 mmol/L (22-30); Chloride 105 mmol/L (98-107); Estimated Creatinine Clearance 47 ml/min; Glucose 142 mg/dl (70-99); Potassium 4.7 mmol/L (3.5-5.1); Sodium 145 mmol/L (135-145); eGFR 57.66
[2024-10-04 07:50] LABS: Vancomycin Random 10.5 ug/ml
--- NOTE | 2024-10-04 09:08 | PHA.VAN.FU ---
Vancomycin Assessment / Plan
- Assessment
Renal Function: SCR Decreasing
WBC's are: Trending Down
In the past 24 hrs, patient has been: Afebrile
Concomitant Antimicrobials: zosyn
- Dosing Plan
Adjust Regimen to: vancomycin 1000 mg q24h
New Regimen Predicts: AUC (484), Peak (31.8), Trough (11.7)
- Monitoring Plan
No level(s) ordered at this time: consider ordering in the next few days
- Follow Up
Pharmacy will continue to follow.
Vancomycin Follow UP
- -
Patient Age: 78
Patient Sex: Female
Vancomycin Day #: 3
Indication: Other
Requesting Provider: NORA
Height / Weight:
Height 5 ft 3 in
Actual Weight 81.102 kg
Pertinent Past Medical History: RECENT ADMIT
- Vital Signs / Lab Results
Temp Pulse Resp BP Pulse Ox
98.1 F 84 22 112/82 97
10/04/24 07:05 10/04/24 07:05 10/04/24 07:05 10/04/24 07:05 10/04/24 07:05
Lab Results - Hematology
10/02/24 10/03/24 10/04/24
10:57 06:33 07:04
WBC 14.1 H 13.1 H 11.2 H
Lab Results - Chemistry
10/02/24 10/03/24 10/04/24
10:57 06:33 07:04
BUN 61 H 56 H 46 H
Creatinine 1.7 H 1.3 H 1.0
Estimated Creat Clear 28 36 47
Microbiology Results
10/02/24 10:57 Blood Culture - Preliminary
Blood/Venous No Growth in 24 hours- Final report to follow
10/02/24 11:13 Blood Culture - Preliminary
Blood/Venous No Growth in 24 hours- Final report to follow
10/02/24 10:57 Influenza Types A & B (JOAQUIN) - Final
Nasal Swab Negative for Influenza A & B, NAAT
Negative results must be combined with clinical observations
and patient history.
Nucleic Acid Amplification test (NAAT)performed on the
[employer] platform.
10/02/24 10:57 Respiratory Syncytial Virus Ag - Final
Nasal Swab Negative for Respiratory Syncytial Virus.
A false negative result may be obtained with a specimen
collected early in the acute phase. If symptoms persist, a
new specimen should be tested.
Therapeutic Drug Monitoring
Random Vancomycin 10.5 ug/ml 10/04/24 07:04
[2024-10-04] MEDS: KCL PO (09:54)
[2024-10-04] MEDS: NOVOLOG FLEXPEN-LOW RESISTANCE SC (09:56)
[2024-10-04] MEDS: PROTONIX 20 MG PO ×2 (09:57→20:56)
[2024-10-04] MEDS: DIOVAN 80 MG PO (09:57)
[2024-10-04] MEDS: MYRBETRIQ EXTENDED RELEASE 25 MG PO (09:57)
[2024-10-04] MEDS: CRESTOR 30 MG PO (09:58)
[2024-10-04] MEDS: OSCAL 500 + D 500 MG PO (09:58)
[2024-10-04] MEDS: ZYLOPRIM 100 MG PO (09:58)
[2024-10-04] MEDS: LEXAPRO 10 MG PO (09:58)
[2024-10-04] MEDS: DESENEX/MITRAZOL/ZEASORB 1 APPLIC TOPICAL (09:59)
[2024-10-04] MEDS: FLUSH (NSS) 1 FLUSH IV ×2 (09:59→17:10)
[2024-10-04] MEDS: VANCOCIN 200 IV (10:26)
[2024-10-04 11:53] VITALS: BP 108/74
--- NOTE | 2024-10-04 12:12 | PN.CDI ---
CDI
- -
CDI:
Physician Documentation Request
Admit Date: 10/02/24 15:42
Dear Doctor Kelsi,
Please review the following and provide your response in the progress notes.
Clinical Indicators:
Pt admitted with Sepsis / Acute Hypoxic Respiratory Failure
Documented in the record, ' CKD'
Renal functions are as below/has been getting IVFs a well
10/02/24 10/03/24 10/04/24
10:57 06:33 07:04
Creatinine 1.7 H 1.3 H 1.0
eGFR 30.50 42.09 57.66
Clarify which of the following accurately represents the patient's renal status:
HERMELINDA on CKD ( please specify stage)
CKD only ( please specify stage )
Other ( please specify)
Criteria for HERMELINDA*
1 Increase in serum creatinine by > or = to 0.3 mg/dL (> or = to 26.5 micromol/L) within 48 hours, OR
2 Increase in serum creatinine to > or = to 1.5 times baseline, which is known or presumed to have occurred within 7 days, OR
3 Urine volume < 0.5 nL/kg/hour for six hours
Stages of Chronic Kidney Disease*
Level Description GFR
G1 Normal or High >90
G2 Mildly decreased 60-89
G3a Mildly to moderately decreased 45-59
G3b Moderately to severely decreased 30-44
G4 Severely decreased 15-29
G5 Kidney failure <15
Use of terms such as suspected, likely, concern for, or probable (associated with a specific diagnosis that is being evaluated, monitored, or treated as if it exists) are acceptable and can be coded in the inpatient setting, when documented at the
time of discharge.
Thank you,
Payton Anderson RN
CDI Specialist
[place]
Please use your independent medical judgment in providing your response.
*Source: Kidney Disease: Improving Global Outcomes (KDIGO) 2012
[2024-10-04 12:55] LABS: Glucose - Point of Care 218 mg/dl (70-99)
[2024-10-04] MEDS: NOVOLOG FLEXPEN-LOW RESISTANCE 2 UNITS SC (12:58)
--- NOTE | 2024-10-04 14:47 | W.PN.HOSP.TC ---
Addendum entered and electronically signed by Luis Bravo DO 10/04/24 15:25:
Correction: Patient does not appear to have CKD as previously mentioned, did have HERMELINDA which has now resolved.
Original Note:
Today's Communication/Plan
-
Assessment / Plan
Assessment / Plan
Gen-AAOx3, NAD
HEENT-NC, AT, anicteric, clear oral mm, nasal cannula in place
Neck-supple
CV-reg, no M, +S1/S2
Lungs-clear B/L
Abd-soft, NT, ND
Musculoskeletal-no edema, no deformity
Skin-warm and dry
Neuro-grossly non-focal
Psych-calm, cooperative
Ms. Magdaleno is a 78-year-old female with a medical history of HFpEF, dementia, diabetes mellitus, hypertension, and CKD who presented from her nursing facility with hypoxia and fever. She had recently been discharged on 09/28/2024 after treatment
for a UTI. She was also found to be in A-fib with RVR. She was admitted for treatment of sepsis.
Sepsis and acute hypoxic respiratory failure:
-Initially requiring 6 L via nasal cannula, now requiring 3-5 L and breathing comfortably
-No clear evidence of pulmonary infection or edema on chest imaging although imaging does show persistent low lung volumes and bronchomalacia
-Respiratory panel negative for COVID and influenza
-Did have a low-grade fever of 100.7 �F tachycardia and a leukocytosis, started on broad-spectrum antibiotics, follow-up blood cultures, MRSA screen pending
-Leukocytosis improving
-Received IV fluids which we will discontinue at this point considering renal function is returned to within normal limits and she does have a history of HFpEF
-Heart rate now better controlled with above-mentioned treatment, there was mention of A-fib with RVR although appears to be sinus tachycardia on EKG, will monitor
-If unable to titrate down supplemental oxygen will ask for input from pulmonology
-Have consulted palliative care team for assistance in clarifying goals of care
HFpEF:
-Recent echo 08/23/2024 shows preserved ejection fraction with stage II diastolic dysfunction
-Holding home Lasix for now after giving IV fluids, will restart as appropriate
-Afterload reduction with valsartan with dose reduced from 80 mg to 60 mg daily due to borderline hypotension and recovering HERMELINDA
Diabetes mellitus:
-Continuing home metformin
-Continue sliding scale insulin for now
CODE STATUS: DNR
Anticipated Discharge: > 48 hours
Subjective/Interval History
-
Date of Service: October 04, 2024
Patient was seen and examined at bedside this morning. No complaints and no acute distress. She does remain hypoxic if titrated to room air. Currently requiring 5 L via nasal cannula.
Objective Data
-
Labs:
Laboratory Results
10/04/24
07:04
WBC 11.2 H
Hgb 13.1
Hct 41.8
Plt Count 268
Sodium 145
Potassium 4.7
Chloride 105
Carbon Dioxide 29
BUN 46 H
Creatinine 1.0
Glucose 142 H
Calcium 9.2
Vital Signs:
Vital Signs
Temp Pulse Resp BP Pulse Ox
97.7 F 86 20 108/74 98
10/04/24 11:53 10/04/24 11:53 10/04/24 11:53 10/04/24 11:53 10/04/24 11:53
I&O
10/03/24 10/04/24 10/05/24
06:59 06:59 06:59
Intake Total 1760 / 1760 240 / 240
Output Total 550 / 550 1500 / 1500
Balance -550 / -550 260 / 260 240 / 240
Review of Systems
-
Unable to obtain full review of systems at this time due to: Dementia
Physical Exam
-
General: No Apparent Distress
[2024-10-04 15:40] VITALS: BP 98/67
[2024-10-04 17:06] LABS: Glucose - Point of Care 156 mg/dl (70-99)
[2024-10-04] MEDS: NOVOLOG FLEXPEN-LOW RESISTANCE 1 UNITS SC (17:10)
[2024-10-04 19:11] VITALS: BP 99/65
[2024-10-04] MEDS: ARICEPT 10 MG PO (20:56)
[2024-10-04] MEDS: MELATONIN 3 MG PO (20:56)
[2024-10-04 21:53] LABS: Glucose - Point of Care 147 mg/dl (70-99)
[2024-10-04 23:24] VITALS: BP 98/64
[2024-10-05] MEDS: HEPARIN 5000 UNITS SC ×4 (00:26→23:01)
[2024-10-05 03:45] VITALS: BP 99/66
[2024-10-05] MEDS: ZOSYN 50 IV ×4 (05:00→21:22)
[2024-10-05 05:55] VITALS: BMI 32.0
--- NOTE | 2024-10-05 06:05 | W.PN.UPDATE ---
Update Note
Progress Note Update
RN reported patient had few foul smelling loose stools. Patient currently is on antibiotics. Patient denies any abdomen pain. Afebrile. Will Order stool for C-diff and Debi virus.
[2024-10-05] MEDS: VANCOCIN 200 IV (06:21)
[2024-10-05 07:10] VITALS: BP 120/80
[2024-10-05 08:07] LABS: Hematocrit 37.4 % (37.0-47.0); Mean Corp Hgb Conc. 32.1 g/dL (33.0-37.0); Mean Corpuscular Hgb 31.7 pg (27.0-31.0); Mean Corpuscular Volume 98.7 fL (81.0-99.0); Mean Platelet Volume 9.5 fL (7.4-10.4); Platelet Count 265 10^3/uL (130-400); Red Blood Cell Count 3.79 10^6/uL (4.20-5.40); Red Cell Dist. Width 13.2 % (11.5-14.5); White Blood Cell Count 10.7 10^3/uL (4.8-10.8)
[2024-10-05 08:12] LABS: Glucose - Point of Care 155 mg/dl (70-99)
[2024-10-05 08:37] LABS: Blood Urea Nitrogen 33 mg/dl (7-17); Calcium 8.3 mg/dl (8.4-10.2); Carbon Dioxide 36 mmol/L (22-30); Chloride 98 mmol/L (98-107); Estimated Creatinine Clearance 52 ml/min; Glucose 161 mg/dl (70-99); Potassium 4.2 mmol/L (3.5-5.1); Sodium 139 mmol/L (135-145); eGFR > 60.00
[2024-10-05] MEDS: NOVOLOG FLEXPEN-LOW RESISTANCE 1 UNITS SC (09:53)
[2024-10-05] MEDS: MYRBETRIQ EXTENDED RELEASE 25 MG PO (09:58)
[2024-10-05] MEDS: CRESTOR 30 MG PO (09:58)
[2024-10-05] MEDS: LEXAPRO 10 MG PO (09:59)
[2024-10-05] MEDS: GLUCOPHAGE 500 MG PO (10:00)
[2024-10-05] MEDS: OSCAL 500 + D 500 MG PO (10:00)
[2024-10-05] MEDS: PROTONIX 20 MG PO ×2 (10:00→21:21)
[2024-10-05] MEDS: DIOVAN 60 MG PO (10:01)
[2024-10-05] MEDS: ZYLOPRIM 100 MG PO (10:02)
[2024-10-05] MEDS: DESENEX/MITRAZOL/ZEASORB 1 APPLIC TOPICAL (10:11)
[2024-10-05 11:10] VITALS: BP 99/65
--- NOTE | 2024-10-05 11:56 | W.CON.PAL ---
Consultation
-
Date/Time Consultation Requested: 10/04/2024
Date/Time Consultation Performed: 10/05/2024
Requesting Provider: Dr. Quispe
Performing Provider: Dr. Card
Reason for Consult: Goals of Care Discussion
Primary Diagnosis: Dementia, Hypoxia
Consult Requested By: Patient's Physician
Reason for Admission
Illness Course/HPI
Lilian is a 78 y/o female with pmhx of dementia, HfpEF, HTN, DM2, who was admitted to hospital from [facility] ([facility] memory care unit), for hypoxia. requiring upto 6L o2. Initial workup was unrevealing of cause of hypoxia, possible
atelectasis, sirs vs. other. palliative care consulted for goals of care.
patient is an unreliable historian due to dementia. She is unable to provide information about her medical poa.
Inpatient and outpatient chart reviewed. No LW on file. On group home demographics sheet Caleb Wing is listed as Medical POA. relationship listed as friend. In prior records ( 5+ years ago), patient was living with her spouse and son per
notes. (patient denies having a son, denied being , is wearing ring ). however in records dating back approx 3 years has been friend Caleb listed as contact.
Called and spoke to Caleb who confirms he is her medical poa, and requested that he bring copy of her advanced directives when he comes to the hospital to add to her record. He confirms DNR code status, but would want workup for medical illness.
Functional Status
patient unable to provide history. per chart review patient dependant for all care.
FAST score in the 6s.
Goals of Care Discussion
Patient Goals
Spoke with Caleb who is listed as medical poa.
request copy of documentation
verified DNR code status
Objective Data
-
Objective Data:
Vital Signs
Temp Pulse Resp BP Pulse Ox
98.2 F 81 20 99/65 97
10/05/24 11:10 10/05/24 11:10 10/05/24 11:10 10/05/24 11:10 10/05/24 11:10
Laboratory Results
10/05/24 07:09
10/05/24 07:09
Urine Color Yellow 10/02/24 13:47
Urine Clarity Clear (Clear) 10/02/24 13:47
Urine pH 5.0 (5.0-9.0) 10/02/24 13:47
Ur Specific [place] 1.020 (<1.030) 10/02/24 13:47
Urine Ketones Negative (Negative) 10/02/24 13:47
Urine Bilirubin Negative (Negative) 10/02/24 13:47
Palliative Performance Scale
Palliative Performance Scale:
PPS Level Ambulation Activity & Evidence of Disease Self Care Intake Conscious Level
100% Full Normal Activity & Work; Full Intake Full
No Evidence of Disease
90% Full Normal Activity & Work; Full Normal Full
Some Evidence of Disease
80% Full Normal Activity with Effort Full Normal or Full
Some Evidence of Disease Reduced
70% Reduced Unable Normal Job/Work Full Normal or Full
Significant Disease Reduced
60% Reduced Unable Hobby/Housework Occasional Normal or Full or Confusion
Significant Disease Assistance Reduced
50% Mainly Sit/Lie Unable to do Any Work Considerable Normal or Full or Confusion
Extensive Disease Assistance Req'd Reduced
40% Mainly in Bed Unable to do Most Activity Mainly Assistance Normal or Full or Drowsy;
Extensive Disease Reduced +/- Confusion
30% Totally Bed Unable to do Any Activity Total Care Normal or Full or Drowsy;
Bound Extensive Disease Reduced +/- Confusion
20% Totally Bed Bound Unable to do Any Activity Total Care Minimal to Full or Drowsy;
Extensive Disease Sips +/- Confusion
10% Totally Bed Bound Unable to do Any Activity Total Care Mouth Care Drowsy or Coma;
Extensive Disease Only +/- Confusion
0%
PPS Score Level:
Assessment / Plan
-
Assessment/Plan:
Code status DNR/DNI
Await documentation from POA
medical treatment as directed by attending
Total floor time 40 mins
[2024-10-05 12:31] LABS: Glucose - Point of Care 148 mg/dl (70-99)
[2024-10-05] MEDS: NOVOLOG FLEXPEN-LOW RESISTANCE SC ×2 (12:40→17:40)
[2024-10-05] MEDS: IMODIUM 2 MG PO ×2 (12:54→21:55)
--- NOTE | 2024-10-05 15:06 | CM ---
Addendum entered by Micaela Gutiérrez 10/05/24 15:12:
[facility] Report: [phone]
[facility]
Original Note:
Patient seen at bedside.
Patient resides at [facility]
Spoke with Britany at [facility] [phone] who states she was at [facility] from recent hospitalization
PLOF: walker, wheelchair
DME: walker, wheelchair, shower chair
Came from [facility] - referral entered in [facility]
PCP: Sangeetha Steel
Pharmacy: [facility]
PLAN: [facility], pending bed availability
--- NOTE | 2024-10-05 15:20 | W.PN.HOSP.TC ---
Today's Communication/Plan
-
Assessment / Plan
Assessment / Plan
Gen-awake and alert, NAD
HEENT-NC, AT, anicteric, clear oral mm, nasal cannula in place
Neck-supple
CV-reg, no M, +S1/S2
Lungs-clear B/L
Abd-soft, NT, ND
Musculoskeletal-no edema, no deformity
Skin-warm and dry
Neuro-grossly non-focal
Psych-calm, cooperative
Ms. Magdaleno is a 78-year-old female with a medical history of HFpEF, dementia, diabetes mellitus, hypertension, and CKD who presented from her nursing facility with hypoxia and fever. She had recently been discharged on 09/28/2024 after treatment
for a UTI. She was also found to be in A-fib with RVR. She was admitted for treatment of sepsis.
Sepsis and acute hypoxic respiratory failure:
-Initially requiring 6 L via nasal cannula, now requiring 3-5 L and breathing comfortably
-No clear evidence of pulmonary infection or edema on chest imaging although imaging does show persistent low lung volumes and bronchomalacia, no evidence of PE
-Respiratory panel negative for COVID and influenza
-Did initially have a low-grade fever of 100.7 �F tachycardia and a leukocytosis, started on broad-spectrum antibiotics, follow-up blood cultures, MRSA screen pending
-Leukocytosis improving
-Received IV fluids which we will discontinue at this point considering renal function is returned to within normal limits and she does have a history of HFpEF
-Heart rate now better controlled with above-mentioned treatment, there was mention of A-fib with RVR although appears to be sinus tachycardia on EKG, will monitor
-If unable to titrate down supplemental oxygen will ask for input from pulmonology, may need ongoing supplemental oxygen after discharge
HFpEF:
-Recent echo 08/23/2024 shows preserved ejection fraction with stage II diastolic dysfunction
-Holding home Lasix for now after giving IV fluids, will restart as appropriate
-Afterload reduction with valsartan with dose reduced from 80 mg to 60 mg daily due to borderline hypotension and recovering HERMELINDA
Diabetes mellitus:
-Continuing home metformin
-Continue sliding scale insulin for now
Soft stools:
-Reported multiple episodes of soft stools overnight
-Negative for norovirus or C. difficile
-Will give Imodium as needed
CODE STATUS: DNR
Anticipated Discharge: 24 - 48 hours
Subjective/Interval History
-
Date of Service: October 05, 2024
Patient was seen and examined at bedside this morning. Breathing comfortably, no complaints.
Objective Data
-
Labs:
Laboratory Results
10/05/24
07:09
WBC 10.7
Hgb 12.0
Hct 37.4
Plt Count 265
Sodium 139
Potassium 4.2
Chloride 98
Carbon Dioxide 36 H
BUN 33 H
Creatinine 0.9
Glucose 161 H
Calcium 8.3 L
Vital Signs:
Vital Signs
Temp Pulse Resp BP Pulse Ox
98.2 F 81 20 99/65 97
10/05/24 11:10 10/05/24 11:10 10/05/24 11:10 10/05/24 11:10 10/05/24 11:10
I&O
10/04/24 10/05/24 10/06/24
06:59 06:59 06:59
Intake Total 1760 / 1760 790 / 790
Output Total 1500 / 1500 1050 / 1050
Balance 260 / 260 -260 / -260
Review of Systems
-
History Source: Patient
All other systems: Reviewed and negative
Physical Exam
-
General: No Apparent Distress
[2024-10-05 15:55] VITALS: BP 95/51
--- NOTE | 2024-10-05 17:17 | PTCARENOTE ---
Patient incontinent of three loose bm this shift. MD aware. Immodium ordered, as C.diff and noro virus were negative.
[2024-10-05 17:37] LABS: Glucose - Point of Care 108 mg/dl (70-99)
[2024-10-05 21:20] LABS: Glucose - Point of Care 149 mg/dl (70-99)
[2024-10-05] MEDS: ARICEPT 10 MG PO (21:21)
[2024-10-05] MEDS: MELATONIN 3 MG PO (21:21)
[2024-10-05 23:32] VITALS: BP 96/65
[2024-10-06] MEDS: ZOSYN 50 IV (03:29)
[2024-10-06 05:25] VITALS: BMI 32.1
[2024-10-06 07:26] LABS: Glucose - Point of Care 130 mg/dl (70-99)
[2024-10-06 07:55] VITALS: BP 96/70
[2024-10-06 09:26] LABS: % Basophils 0.7 % (0-2); % Eosinophils 3.7 % (0-6); % Immature Granulocytes 0.6 % (0-0.5); % Lymphocytes 12.2 % (20.5-51.1); % Monocytes 7.1 % (1.7-9.3); % Neutrophils 75.7 % (42.2-75.2); Absolute Basophils 0.1 10^3/uL (0-0.2); Absolute Eosinophils 0.4 10^3/uL (0-0.7); Absolute Immature Granulocytes 0.1 10^3/uL (0-0.05); Absolute Lymphocytes 1.4 10^3/uL (1.2-3.4); Absolute Monocytes 0.8 10^3/uL (0.1-0.6); Absolute Neutrophils 8.5 10^3/uL (1.4-6.5); Hematocrit 37.6 % (37.0-47.0); Hemoglobin 12.2 g/dL (12.0-16.0); Mean Corp Hgb Conc. 32.4 g/dL (33.0-37.0); Mean Corpuscular Volume 95.7 fL (81.0-99.0); Nucleated Red Blood Cells % 0 %; Platelet Count 261 10^3/uL (130-400); Red Blood Cell Count 3.93 10^6/uL (4.20-5.40); Red Cell Dist. Width 13.2 % (11.5-14.5); White Blood Cell Count 11.3 10^3/uL (4.8-10.8)
[2024-10-06] MEDS: NOVOLOG FLEXPEN-LOW RESISTANCE SC (09:29)
[2024-10-06] MEDS: MYRBETRIQ EXTENDED RELEASE 25 MG PO (09:34)
[2024-10-06] MEDS: ZYLOPRIM 100 MG PO (09:34)
[2024-10-06] MEDS: DIOVAN PO (09:34)
[2024-10-06] MEDS: GLUCOPHAGE PO (09:35)
[2024-10-06] MEDS: OSCAL 500 + D 500 MG PO (09:35)
[2024-10-06] MEDS: CRESTOR 30 MG PO (09:35)
[2024-10-06] MEDS: HEPARIN 5000 UNITS SC ×3 (09:35→23:05)
[2024-10-06] MEDS: LEXAPRO 10 MG PO (09:35)
[2024-10-06] MEDS: DESENEX/MITRAZOL/ZEASORB 1 APPLIC TOPICAL (09:36)
[2024-10-06] MEDS: PROTONIX 20 MG PO ×2 (09:37→21:18)
[2024-10-06] MEDS: ROCEPHIN 1000 MG IV (09:40)
[2024-10-06] MEDS: FLUSH (NSS) 2 FLUSH IV (09:41)
[2024-10-06] MEDS: STERILE WATER FOR INJECTION 10 ML IV (09:41)
[2024-10-06] MEDS: FLUSH (NSS) 1 FLUSH IV (09:43)
[2024-10-06 10:03] LABS: Blood Urea Nitrogen 31 mg/dl (7-17); Calcium 8.9 mg/dl (8.4-10.2); Carbon Dioxide 33 mmol/L (22-30); Chloride 96 mmol/L (98-107); Estimated Creatinine Clearance 52 ml/min; Glucose 132 mg/dl (70-99); Magnesium 1.8 mg/dl (1.6-2.3); Phosphorus 3.8 mg/dl (2.5-4.5); Potassium 3.9 mmol/L (3.5-5.1); Sodium 136 mmol/L (135-145); eGFR > 60.00
[2024-10-06 12:18] LABS: Glucose - Point of Care 202 mg/dl (70-99)
[2024-10-06] MEDS: NOVOLOG FLEXPEN-LOW RESISTANCE 2 UNITS SC (12:20)
[2024-10-06 15:55] VITALS: BP 114/65
[2024-10-06 16:45] LABS: Glucose - Point of Care 187 mg/dl (70-99)
[2024-10-06] MEDS: FLAGYL 250 MG PO ×2 (16:50→23:05)
[2024-10-06] MEDS: NOVOLOG FLEXPEN-LOW RESISTANCE 1 UNITS SC (16:50)
--- NOTE | 2024-10-06 17:36 | W.PN.HOSP.TC ---
Today's Communication/Plan
-
Assessment / Plan
Assessment / Plan
Gen-awake and alert, NAD
HEENT-NC, AT, anicteric, clear oral mm, nasal cannula in place
Neck-supple
CV-reg, no M, +S1/S2
Lungs-clear B/L
Abd-soft, NT, ND
Musculoskeletal-no edema, no deformity
Skin-warm and dry
Neuro-grossly non-focal
Psych-calm, cooperative
Ms. Magdaleno is a 78-year-old female with a medical history of HFpEF, dementia, diabetes mellitus, hypertension, and CKD who presented from her nursing facility with hypoxia and fever. She had recently been discharged on 09/28/2024 after treatment
for a UTI. She was also found to be in A-fib with RVR. She was admitted for treatment of sepsis.
Sepsis and acute hypoxic respiratory failure:
-Initially requiring 6 L via nasal cannula, now on room air and breathing comfortably
-No clear evidence of pulmonary infection or edema on chest imaging although imaging does show persistent low lung volumes and bronchomalacia, no evidence of PE
-Respiratory panel negative for COVID and influenza
-Did initially have a low-grade fever of 100.7 �F tachycardia and a leukocytosis, started on broad-spectrum antibiotics, follow-up blood cultures, MRSA screen negative
-Antibiotics narrowed to ceftriaxone and metronidazole, leukocytosis stable
HFpEF:
-Recent echo 08/23/2024 shows preserved ejection fraction with stage II diastolic dysfunction
-Will restart home Lasix 20 mg p.o. daily tomorrow 10/07
-Afterload reduction with valsartan with dose reduced from 80 mg to 60 mg daily due to borderline hypotension and recovering HERMELINDA
Diabetes mellitus:
-Holding home metformin due to multiple episodes of loose stools
-Continue sliding scale insulin for now
Soft stools:
-Reported multiple episodes of soft stools past 24 hours
-Negative for norovirus or C. difficile
-Will give Imodium as needed
-Holding home metformin for now
CODE STATUS: DNR
Anticipated Discharge: 24 - 48 hours
Subjective/Interval History
-
Date of Service: October 06, 2024
Patient was seen and examined at bedside this morning. Resting comfortably. Able to be titrated to room air. Holding metformin for loose stools.
Objective Data
-
Labs:
Laboratory Results
10/06/24
09:10
WBC 11.3 H
Hgb 12.2
Hct 37.6
Plt Count 261
Sodium 136
Potassium 3.9
Chloride 96 L
Carbon Dioxide 33 H
BUN 31 H
Creatinine 0.9
Glucose 132 H
Calcium 8.9
Vital Signs:
Vital Signs
Temp Pulse Resp BP Pulse Ox
98.3 F 84 20 114/65 93
10/06/24 15:55 10/06/24 15:55 10/06/24 15:55 10/06/24 15:55 10/06/24 15:55
I&O
10/05/24 10/06/24 10/07/24
06:59 06:59 06:59
Intake Total 790 / 790
Output Total 1050 / 1050
Balance -260 / -260
Review of Systems
-
History Source: Patient
All other systems: Reviewed and negative
Physical Exam
-
General: No Apparent Distress
[2024-10-06] MEDS: ARICEPT 10 MG PO (21:18)
[2024-10-06] MEDS: MELATONIN 3 MG PO (21:19)
[2024-10-06 22:06] LABS: Glucose - Point of Care 169 mg/dl (70-99)
[2024-10-06 23:47] VITALS: BP 99/69
[2024-10-07 06:00] VITALS: BMI 31.6
[2024-10-07 06:59] LABS: % Basophils 0.4 % (0-2); % Eosinophils 3.7 % (0-6); % Immature Granulocytes 0.8 % (0-0.5); % Lymphocytes 16.5 % (20.5-51.1); % Monocytes 7.8 % (1.7-9.3); % Neutrophils 70.8 % (42.2-75.2); Absolute Basophils 0.1 10^3/uL (0-0.2); Absolute Eosinophils 0.4 10^3/uL (0-0.7); Absolute Immature Granulocytes 0.1 10^3/uL (0-0.05); Absolute Lymphocytes 1.9 10^3/uL (1.2-3.4); Absolute Monocytes 0.9 10^3/uL (0.1-0.6); Absolute Neutrophils 8.2 10^3/uL (1.4-6.5); Hematocrit 36.3 % (37.0-47.0); Hemoglobin 11.5 g/dL (12.0-16.0); Mean Corp Hgb Conc. 31.7 g/dL (33.0-37.0); Mean Corpuscular Hgb 30.7 pg (27.0-31.0); Mean Corpuscular Volume 96.8 fL (81.0-99.0); Mean Platelet Volume 9.4 fL (7.4-10.4); Nucleated Red Blood Cells % 0 %; Platelet Count 258 10^3/uL (130-400); Red Blood Cell Count 3.75 10^6/uL (4.20-5.40); Red Cell Dist. Width 13.2 % (11.5-14.5); White Blood Cell Count 11.6 10^3/uL (4.8-10.8)
[2024-10-07 07:11] VITALS: BP 110/73
[2024-10-07 07:30] LABS: Glucose - Point of Care 145 mg/dl (70-99)
[2024-10-07 07:32] LABS: Blood Urea Nitrogen 29 mg/dl (7-17); Calcium 8.6 mg/dl (8.4-10.2); Carbon Dioxide 35 mmol/L (22-30); Chloride 97 mmol/L (98-107); Estimated Creatinine Clearance 52 ml/min; Glucose 138 mg/dl (70-99); Phosphorus 3.3 mg/dl (2.5-4.5); Potassium 3.9 mmol/L (3.5-5.1); Sodium 139 mmol/L (135-145); eGFR > 60.00
[2024-10-07] MEDS: NOVOLOG FLEXPEN-LOW RESISTANCE SC (07:54)
[2024-10-07] MEDS: FLAGYL 250 MG PO ×3 (08:49→23:01)
[2024-10-07] MEDS: LEXAPRO 10 MG PO (08:49)
[2024-10-07] MEDS: MYRBETRIQ EXTENDED RELEASE 25 MG PO (08:49)
[2024-10-07] MEDS: LASIX 20 MG PO (08:49)
[2024-10-07] MEDS: OSCAL 500 + D 500 MG PO (08:49)
[2024-10-07] MEDS: CRESTOR 30 MG PO (08:49)
[2024-10-07] MEDS: PROTONIX 20 MG PO ×2 (08:49→21:28)
[2024-10-07] MEDS: HEPARIN 5000 UNITS SC ×3 (08:50→23:02)
[2024-10-07] MEDS: ZYLOPRIM 100 MG PO (08:50)
[2024-10-07] MEDS: DESENEX/MITRAZOL/ZEASORB 1 APPLIC TOPICAL (08:51)
[2024-10-07] MEDS: ROCEPHIN 1000 MG IV (09:01)
[2024-10-07] MEDS: STERILE WATER FOR INJECTION 10 ML IV (09:01)
[2024-10-07 12:00] LABS: Glucose - Point of Care 213 mg/dl (70-99)
[2024-10-07] MEDS: NOVOLOG FLEXPEN-LOW RESISTANCE 2 UNITS SC (12:02)
--- NOTE | 2024-10-07 13:35 | W.DCSUMMARY ---
Discharge Summary
Discharge Data
Date of Admission: 10/02/24
Date of Discharge: 10/07/24
-
Pending Results: No
Hospital Course
Ms. Magdaleno is a 78-year-old female with a medical history of HFpEF, dementia, diabetes mellitus, hypertension, and CKD who presented from her nursing facility with hypoxia and fever. She had recently been discharged on 09/28/2024 after treatment
for a UTI. At the time of this admission she was found to be tachycardic and had a low-grade fever. She was admitted for treatment of sepsis with acute hypoxic respiratory failure.
Chest imaging showed no evidence of PE, pulmonary edema, or acute infection. However imaging did show persistent low lung volumes and bronchomalacia. Low lung volumes on imaging is likely due to poor inspiratory effort. Her respiratory panel was
negative for COVID or influenza. She was started empirically on broad-spectrum antibiotics for a possible infection especially considering she had recently been treated with a course of antibiotics for UTI. However cultures remain negative and
ultimately no infection was identified. She remained afebrile since initial fever at time of admission. She was initially requiring 6 L supplemental oxygen via nasal cannula, but was able to be titrated down to 2 to 3 L and occasionally to room
air while breathing comfortably and saturating in the mid to low 90s. She would benefit from ongoing supplemental oxygen via nasal cannula as needed after discharge.
She developed a few episodes of soft stools which were negative for C. difficile and norovirus. Her metformin was briefly held in case it was contributing to her GI symptoms, although she reported no discomfort and was given Imodium as needed.
Ultimately her metformin was restarted at a lower dose.
Her home valsartan was held due to low blood pressure. Valsartan will continue to be held after discharge as she does not appear to require an antihypertensive regimen at this time. Her blood pressure should continually be monitored and blood
pressure medications could be restarted as needed. However, I would recommend a liberalized blood pressure goal of 130s over 80s for her considering her age and normal systolic function. She has a history of HFpEF but does not appear to be on a
beta-odette. I would recommend following up with her regulatory specialist regarding the utility of adding a cardioselective beta-odette such as metoprolol.
At time of hospital discharge she was hemodynamically stable. She will be discharged back to her long-term care facility where she will complete 3 more days of antibiotics for total 7-day antibiotic course. She should continue to use supplemental
oxygen via nasal cannula as needed. She will need follow-up with her PCP and cardiology after discharge.
Gen-awake and alert, NAD
HEENT-NC, AT, anicteric, clear oral mm, nasal cannula in place
Neck-supple
CV-reg, no M, +S1/S2
Lungs-clear B/L
Abd-soft, NT, ND
Musculoskeletal-no edema, no deformity
Skin-warm and dry
Neuro-grossly non-focal
Psych-calm, cooperative
Discharge Plan
-
Patient Disposition: Assisted/SNF
Discharge Diagnosis/Procedures: Acute hypoxic respiratory failure
Condition: Fair
Diet: Diabetic, Carb Controlled
Activity: With assistance and As tolerated
Activity Restrictions/Additional Instructions:
Ms. Magdaleno is a 78-year-old female with a medical history of HFpEF, dementia, diabetes mellitus, hypertension, and CKD who presented from her nursing facility with hypoxia and fever. She had recently been discharged on 09/28/2024 after treatment
for a UTI. At the time of this admission she was found to be tachycardic and had a low-grade fever. She was admitted for treatment of sepsis with acute hypoxic respiratory failure.
Chest imaging showed no evidence of PE, pulmonary edema, or acute infection. However imaging did show persistent low lung volumes and bronchomalacia. Low lung volumes on imaging is likely due to poor inspiratory effort. Her respiratory panel was
negative for COVID or influenza. She was started empirically on broad-spectrum antibiotics for a possible infection especially considering she had recently been treated with a course of antibiotics for UTI. However cultures remain negative and
ultimately no infection was identified. She remained afebrile since initial fever at time of admission. She was initially requiring 6 L supplemental oxygen via nasal cannula, but was able to be titrated down to 2 to 3 L and occasionally to room
air while breathing comfortably and saturating in the mid to low 90s. She would benefit from ongoing supplemental oxygen via nasal cannula as needed after discharge.
She developed a few episodes of soft stools which were negative for C. difficile and norovirus. Her metformin was briefly held in case it was contributing to her GI symptoms, although she reported no discomfort and was given Imodium as needed.
Ultimately her metformin was restarted at a lower dose.
Her home valsartan was held due to low blood pressure. Valsartan will continue to be held after discharge as she does not appear to require an antihypertensive regimen at this time. Her blood pressure should continually be monitored and blood
pressure medications could be restarted as needed. However, I would recommend a liberalized blood pressure goal of 130s over 80s for her considering her age and normal systolic function. She has a history of HFpEF but does not appear to be on a
beta-odette. I would recommend following up with her regulatory specialist regarding the utility of adding a cardioselective beta-odette such as metoprolol.
At time of hospital discharge she was hemodynamically stable. She will be discharged back to her long-term care facility where she will complete 3 more days of antibiotics for total 7-day antibiotic course. She should continue to use supplemental
oxygen via nasal cannula as needed. She will need follow-up with her PCP and cardiology after discharge.
Referrals:
Anderson Tinajero MD [Family Provider] -
Prescriptions:
New
cefuroxime axetil 250 mg tablet
250 mg PO BID 3 Days Qty: 6 0RF
metronidazole 250 mg Tablet
250 mg PO Q8 3 Days Qty: 9 0RF
Continued
donepezil [Aricept] 10 mg Tablet
10 mg PO HS
ascorbic acid (vitamin C) 500 mg Tablet
1,000 mg PO DAILY
nystatin 100,000 unit/gram Powder
1 applic TOPICAL DAILY
acetaminophen 325 mg Tablet
650 mg PO Q4HPRN PRN (Reason: mild pain)
melatonin 3 mg Tablet
3 mg PO HS
allopurinol 100 mg Tablet
100 mg PO DAILY
pantoprazole [Protonix] 20 mg Tablet,Delayed Release (Dr/Ec)
20 mg PO BID
potassium chloride 20 mEq tablet,ER particles/crystals
20 meq PO BID
dextromethorphan-guaifenesin [Robitussin Cough-Chest Finesse DM] 5-100 mg/5 mL Liquid
10 ml PO Q4HPRN PRN (Reason: cough)
rosuvastatin 20 mg Tablet
30 mg PO DAILY
Balmex Adult Care 11.3 % Cream
1 applic TOPICAL BIDPRN PRN (Reason: sacral area redness)
mirabegron [Myrbetriq] 25 mg Tablet Extended Release 24 Hr
25 mg PO DAILY
furosemide [Lasix] 20 mg Tablet
20 mg PO DAILY
magnesium hydroxide [Milk of Magnesia] 400 mg/5 mL Suspension
2,400 mg PO DAILYPRN PRN (Reason: if no bm by 4th day)
Fleet Enema 19-7 gram/118 mL Enema
118 ml WI DAILYPRN PRN (Reason: if no bm by 6th day)
alum-mag hydroxide-simeth [Mylanta Maximum Strength] 400-400-40 mg/5 mL Suspension
10 ml PO Q4HPRN PRN (Reason: gerd)
Calcium 600 with Vitamin D3 600 mg-10 mcg (400 unit) Tablet,Chewable
1 tab PO DAILY
Changed
metformin 1,000 mg Tablet
1,000 mg PO DAILY Qty: 0 0RF
Discontinued
metformin 500 mg Tablet
500 mg PO DAILY
valsartan 80 mg Tablet
80 mg PO DAILY
estradiol [Estrace] 0.01 % (0.1 mg/gram) Cream
0 g VAGINAL MOTH
escitalopram oxalate 10 mg Tablet
10 mg PO DAILY
cefuroxime axetil 500 mg Tablet
500 mg PO BID Qty: 0 0RF
bisacodyl [Dulcolax (bisacodyl)] 10 mg Suppository
10 mg WI DAILYPRN PRN (Reason: if no bm by day and/or aftr mom)
Discharge Orders:
Discharge Patient (As Directed); Ordered 10/07/24
Ordered By: Luis Bravo
Discharge Date and Time
Print Language: OMANI
--- NOTE | 2024-10-07 14:10 | CM ---
Cm continues to follow for discharge to [facility]. No beds available over the weekend.
Plan: CM to follow to coordinate discharge to [facility] when bed available.
[facility] Report: [phone]
[facility]
[2024-10-07 15:41] VITALS: BP 106/65
[2024-10-07 16:48] LABS: Glucose - Point of Care 157 mg/dl (70-99)
[2024-10-07] MEDS: NOVOLOG FLEXPEN-LOW RESISTANCE 1 UNITS SC (17:02)
[2024-10-07] MEDS: MELATONIN 3 MG PO (21:27)
[2024-10-07] MEDS: ARICEPT 10 MG PO (21:28)
[2024-10-07 22:00] LABS: Glucose - Point of Care 168 mg/dl (70-99)
[2024-10-07 23:00] VITALS: BP 114/83
[2024-10-08 06:00] VITALS: BMI 31.4
[2024-10-08 07:40] VITALS: BP 109/76
[2024-10-08 07:51] LABS: Glucose - Point of Care 120 mg/dl (70-99)
[2024-10-08] MEDS: NOVOLOG FLEXPEN-LOW RESISTANCE SC ×2 (07:54→17:29)
[2024-10-08 08:08] LABS: % Basophils 0.4 % (0-2); % Eosinophils 3.7 % (0-6); % Immature Granulocytes 1.1 % (0-0.5); % Lymphocytes 15.3 % (20.5-51.1); % Monocytes 7.4 % (1.7-9.3); % Neutrophils 72.1 % (42.2-75.2); Absolute Eosinophils 0.4 10^3/uL (0-0.7); Absolute Immature Granulocytes 0.1 10^3/uL (0-0.05); Absolute Lymphocytes 1.7 10^3/uL (1.2-3.4); Absolute Monocytes 0.8 10^3/uL (0.1-0.6); Absolute Neutrophils 8.1 10^3/uL (1.4-6.5); Hematocrit 37.5 % (37.0-47.0); Hemoglobin 12.2 g/dL (12.0-16.0); Mean Corp Hgb Conc. 32.5 g/dL (33.0-37.0); Mean Corpuscular Hgb 31.7 pg (27.0-31.0); Mean Corpuscular Volume 97.4 fL (81.0-99.0); Mean Platelet Volume 10.2 fL (7.4-10.4); Nucleated Red Blood Cells % 0 %; Platelet Count 277 10^3/uL (130-400); Red Blood Cell Count 3.85 10^6/uL (4.20-5.40); White Blood Cell Count 11.3 10^3/uL (4.8-10.8)
[2024-10-08 08:36] LABS: Blood Urea Nitrogen 22 mg/dl (7-17); Calcium 8.5 mg/dl (8.4-10.2); Carbon Dioxide 33 mmol/L (22-30); Chloride 94 mmol/L (98-107); Estimated Creatinine Clearance 67 ml/min; Glucose 139 mg/dl (70-99); Magnesium 1.9 mg/dl (1.6-2.3); Phosphorus 3.3 mg/dl (2.5-4.5); Potassium 3.8 mmol/L (3.5-5.1); Sodium 136 mmol/L (135-145); eGFR > 60.00
[2024-10-08] MEDS: GLUCOPHAGE 500 MG PO (08:53)
[2024-10-08] MEDS: MYRBETRIQ EXTENDED RELEASE 25 MG PO (08:53)
[2024-10-08] MEDS: CRESTOR 30 MG PO (08:53)
[2024-10-08] MEDS: PROTONIX 20 MG PO ×2 (08:53→19:55)
[2024-10-08] MEDS: FLAGYL 250 MG PO ×3 (08:53→23:19)
[2024-10-08] MEDS: HEPARIN 5000 UNITS SC ×3 (08:53→23:19)
[2024-10-08] MEDS: DESENEX/MITRAZOL/ZEASORB 1 APPLIC TOPICAL (08:54)
[2024-10-08] MEDS: OSCAL 500 + D 500 MG PO (08:54)
[2024-10-08] MEDS: LEXAPRO 10 MG PO (08:54)
[2024-10-08] MEDS: ZYLOPRIM 100 MG PO (08:54)
[2024-10-08] MEDS: ROCEPHIN 1000 MG IV (09:04)
[2024-10-08] MEDS: STERILE WATER FOR INJECTION 10 ML IV (09:04)
[2024-10-08] MEDS: LASIX 20 MG PO (10:00)
[2024-10-08 11:49] LABS: Glucose - Point of Care 177 mg/dl (70-99)
--- NOTE | 2024-10-08 11:51 | W.PN.HOSP.TC ---
Today's Communication/Plan
-
Assessment / Plan
Assessment / Plan
Gen-awake and alert, NAD
HEENT-NC, AT, anicteric, clear oral mm, nasal cannula in place
Neck-supple
CV-reg, no M, +S1/S2
Lungs-clear B/L
Abd-soft, NT, ND
Musculoskeletal-no edema, no deformity
Skin-warm and dry
Neuro-grossly non-focal
Psych-calm, cooperative
Ms. Magdaleno is a 78-year-old female with a medical history of HFpEF, dementia, diabetes mellitus, hypertension, and CKD who presented from her nursing facility with hypoxia and fever. She had recently been discharged on 09/28/2024 after treatment
for a UTI. She was also found to be in A-fib with RVR. She was admitted for treatment of sepsis.
Sepsis and acute hypoxic respiratory failure:
-Resolved
-Initially requiring 6 L via nasal cannula, now on 2 to 3 L and breathing comfortably, occasionally able to titrate to room air
-No clear evidence of pulmonary infection or edema on chest imaging although imaging does show persistent low lung volumes and bronchomalacia, no evidence of PE
-Respiratory panel negative for COVID and influenza, MRSA negative, blood cultures negative
-Did initially have a low-grade fever of 100.7 �F tachycardia and a leukocytosis, started on broad-spectrum antibiotics
-Antibiotics narrowed to ceftriaxone and metronidazole, last day of antibiotics tomorrow 2/3, persistent but stable leukocytosis
HFpEF:
-Recent echo 08/23/2024 shows preserved ejection fraction with stage II diastolic dysfunction
-Restarted home Lasix 20 mg p.o. daily 10/07
-Holding home valsartan due to low but stable blood pressure, will continue to hold, may not require afterload reduction agents if blood pressure remains low
Diabetes mellitus:
-Restarted home metformin but at lower dose as previous dose may have been causing GI symptoms
-Continue sliding scale insulin for now
Soft stools:
-Reported multiple episodes of soft stools past 24 hours
-Negative for norovirus or C. difficile
-Will give Imodium as needed
-Restarted home metformin at lower dose
CODE STATUS: DNR
Anticipated Discharge: Within 24 hours
Subjective/Interval History
-
Date of Service: October 08, 2024
Patient was seen and examined at bedside this morning. No complaints. Remains clinically stable awaiting discharge to her long-term care facility.
Objective Data
-
Labs:
Laboratory Results
10/08/24
05:46
WBC 11.3 H
Hgb 12.2
Hct 37.5
Plt Count 277
Sodium 136
Potassium 3.8
Chloride 94 L
Carbon Dioxide 33 H
BUN 22 H
Creatinine 0.7
Glucose 139 H
Calcium 8.5
Vital Signs:
Vital Signs
Temp Pulse Resp BP Pulse Ox
98.0 F 85 20 109/76 95
10/08/24 07:40 10/08/24 07:40 10/08/24 07:40 10/08/24 10:00 10/08/24 07:40
I&O
10/07/24 10/08/24 10/09/24
06:59 06:59 06:59
Intake Total 960 / 960 240 / 240 0 / 0
Output Total 0 / 0
Balance 960 / 960 240 / 240 0 / 0
Review of Systems
-
History Source: Patient
All other systems: Reviewed and negative
Physical Exam
-
General: No Apparent Distress
[2024-10-08] MEDS: NOVOLOG FLEXPEN-LOW RESISTANCE 1 UNITS SC (12:30)
[2024-10-08 15:15] VITALS: BP 118/76
[2024-10-08 17:26] LABS: Glucose - Point of Care 99 mg/dl (70-99)
[2024-10-08] MEDS: ARICEPT 10 MG PO (21:33)
[2024-10-08] MEDS: MELATONIN 3 MG PO (21:33)
[2024-10-08 22:01] LABS: Glucose - Point of Care 119 mg/dl (70-99)
[2024-10-08 23:53] VITALS: BP 137/75
[2024-10-09 06:00] VITALS: BMI 31.6
[2024-10-09 07:10] VITALS: BP 105/83
[2024-10-09 07:28] LABS: % Basophils 0.5 % (0-2); % Eosinophils 2.6 % (0-6); % Immature Granulocytes 0.9 % (0-0.5); % Lymphocytes 12.7 % (20.5-51.1); % Monocytes 10.4 % (1.7-9.3); % Neutrophils 72.9 % (42.2-75.2); Absolute Basophils 0.1 10^3/uL (0-0.2); Absolute Eosinophils 0.3 10^3/uL (0-0.7); Absolute Immature Granulocytes 0.1 10^3/uL (0-0.05); Absolute Lymphocytes 1.4 10^3/uL (1.2-3.4); Absolute Monocytes 1.2 10^3/uL (0.1-0.6); Absolute Neutrophils 8.1 10^3/uL (1.4-6.5); Hematocrit 38.5 % (37.0-47.0); Hemoglobin 12.6 g/dL (12.0-16.0); Mean Corp Hgb Conc. 32.7 g/dL (33.0-37.0); Mean Corpuscular Volume 94.8 fL (81.0-99.0); Mean Platelet Volume 9.4 fL (7.4-10.4); Nucleated Red Blood Cells % 0 %; Platelet Count 294 10^3/uL (130-400); Red Blood Cell Count 4.06 10^6/uL (4.20-5.40); Red Cell Dist. Width 13.1 % (11.5-14.5); White Blood Cell Count 11.1 10^3/uL (4.8-10.8)
[2024-10-09 07:43] LABS: Glucose - Point of Care 135 mg/dl (70-99)
[2024-10-09 07:49] LABS: Blood Urea Nitrogen 21 mg/dl (7-17); Calcium 8.6 mg/dl (8.4-10.2); Carbon Dioxide 36 mmol/L (22-30); Chloride 91 mmol/L (98-107); Estimated Creatinine Clearance 67 ml/min; Glucose 133 mg/dl (70-99); Magnesium 1.8 mg/dl (1.6-2.3); Phosphorus 3.6 mg/dl (2.5-4.5); Potassium 3.9 mmol/L (3.5-5.1); Sodium 136 mmol/L (135-145); eGFR > 60.00
[2024-10-09] MEDS: NOVOLOG FLEXPEN-LOW RESISTANCE SC ×2 (08:49→15:03)
[2024-10-09] MEDS: PROTONIX 20 MG PO (09:42)
[2024-10-09] MEDS: CRESTOR 30 MG PO (09:42)
[2024-10-09] MEDS: FLAGYL 250 MG PO (09:42)
[2024-10-09] MEDS: LEXAPRO 10 MG PO (09:43)
[2024-10-09] MEDS: LASIX 20 MG PO (09:43)
[2024-10-09] MEDS: OSCAL 500 + D 500 MG PO (09:43)
[2024-10-09] MEDS: MYRBETRIQ EXTENDED RELEASE 25 MG PO (09:43)
[2024-10-09] MEDS: HEPARIN 5000 UNITS SC (09:44)
[2024-10-09] MEDS: GLUCOPHAGE 500 MG PO (09:44)
[2024-10-09] MEDS: ZYLOPRIM 100 MG PO (09:44)
--- NOTE | 2024-10-09 09:50 | WOUNDNOTE ---
[facility] RN note: Patient admitted with sepsis, hypoxia. Patient for possible discharge to SNF today.
See H&P for complete history.
PMH: HTN, DM, CHF, dementia, R TKR, R inguinal hernia, lumbar fusion, obesity.
Wound Location and type/assessment: Patient admitted with: L upper arm pustule with some local induration and redness suspect a developing cyst. No drainage. Perineal yeast rash. R upper inner thigh linear red lavonne suspect from diaper use.
Miconazole powder and zinc barrier ointment being used. Heels blanchable red.
Appetite: on 1800 calorie diet.
Pressure redistribution devices in place: [employer] air bed. Air chair cushion. Patient cannot turn self in bed.
Plan: Dr. Foreman was in during visit who evaluated L upper arm red pustule who was in agreement with warm compress Bid for up to 20 minutes. RN Tramaine present. RN Tramaine assisted with turning patient. Heels off bed with pillow and air chair cushion.
Care plan and discharge instructions updated including putting 'air mattress' in the discharge instructions.
--- NOTE | 2024-10-09 09:50 | WOUNDNOTE ---
R THIGH (UPPER MEDIAL)
--- NOTE | 2024-10-09 09:50 | WOUNDNOTE ---
L ARM (UPPER OUTER)
[2024-10-09] MEDS: DESENEX/MITRAZOL/ZEASORB 1 APPLIC TOPICAL (09:58)
--- NOTE | 2024-10-09 10:00 | PTOTSP ---
Speech Therapy Evaluation:
Pt with chronic risk factors of dysphagia, including hx of dementia with modified diet at baseline, compounded by acute hypoxemic respiratory failure with increased O2 demand. Pt remains at risk for aspiration given dependence for feeding/oral care
and concern for breathing/swallow coordination. No overt s/sx of aspiration across PO trials, however prolonged mastication/bolus formation with increased WOB noted with regular solids. 3oz swallow screen deferred 2/2 dependence for feeding, however
no s/sx of aspiration observed with consecutive sips of thin liquids via straws. CXR without evidence of PNA.
Recommend:
1. Diet downgrade to baseline diet of IDDSI Level 6 (soft and bite sized) solids and thin liquids
2. Medications as best tolerated
3. 1:1 assistance for feeding
4. General aspiration precautions
5. CREATIVE SERVICES MANAGER to follow, likely brief
--- NOTE | 2024-10-09 10:57 | CM ---
CM reviewed pt with Dr Foreman- ready for dc
Bed confirmed with [facility] admissions/[facility]
call with primary contact/Caleb- he is in agreement with plan
IMM verbally reviewed over phone- copy with dc paperwork per request
Transport forms on chart- BLS pickup 1530
Discharge Disposition- return [facility] for STR via BLS (1530 pickup)
Phone- [phone] Fax- [phone]
--- NOTE | 2024-10-09 11:22 | W.PN.HOSP.TC ---
Today's Communication/Plan
-
Discharge to SNF
1 more day of p.o. antibiotics
Soft and bite-size diet at [place]
Wean oxygen as able
Assessment / Plan
Assessment / Plan
Ms. Magdaleno is a 78-year-old female with a medical history of HFpEF, dementia, diabetes mellitus, hypertension, and CKD who presented from her nursing facility with hypoxia and fever. She had recently been discharged on 09/28/2024 after treatment
for a UTI. She was also found to be in A-fib with RVR. She was admitted for treatment of sepsis.
#Sepsis and acute hypoxic respiratory failure
-Resolved, question if this was related to aspiration as she is on modified diet chronically
-Initially requiring 6 L via nasal cannula, now on 2 to 3 L and breathing comfortably, occasionally able to titrate to room air
-No clear evidence of pulmonary infection or edema on chest imaging although imaging does show persistent low lung volumes and bronchomalacia, no evidence of PE
-Respiratory panel negative for COVID and influenza, MRSA negative, blood cultures negative
-Did initially have a low-grade fever of 100.7 �F tachycardia and a leukocytosis, started on broad-spectrum antibiotics
-Antibiotics narrowed to ceftriaxone and metronidazole, discharged to complete 1 more day of cefuroxime and metronidazole to complete 7 days total
-Currently on 2 L oxygen with SpO2 high 90s, can continue to wean at [facility]
#HFpEF
-Recent echo 08/23/2024 shows preserved ejection fraction with stage II diastolic dysfunction
-Restarted home Lasix 20 mg p.o. daily 10/07
-Holding home valsartan due to low but stable blood pressure, will continue to hold, may not require afterload reduction agents if blood pressure remains low
#Diabetes mellitus
-Restarted home metformin but at lower dose as previous dose may have been causing GI symptoms
-Continue sliding scale insulin for now
#Soft stools
-Reported multiple episodes of soft stools past 24 hours
-Negative for norovirus or C. difficile
-Will give Imodium as needed
-Restarted home metformin at lower dose
CODE STATUS: DNR
Diet: IDDSI 6, carb controlled
Anticipated Discharge: Today
Subjective/Interval History
-
Date of Service: October 09, 2024
Seen and examined at the bedside. No acute events reported overnight. AFVSS on 2 L oxygen this morning.
She denied any acute events, states she felt well and was breathing well.
Developed pustule on lateral proximal LUE, wound care started twice daily warm compresses
Objective Data
-
Labs:
Laboratory Results
10/09/24
06:53
WBC 11.1 H
Hgb 12.6
Hct 38.5
Plt Count 294
Sodium 136
Potassium 3.9
Chloride 91 L
Carbon Dioxide 36 H
BUN 21 H
Creatinine 0.7
Glucose 133 H
Calcium 8.6
Vital Signs:
Vital Signs
Temp Pulse Resp BP Pulse Ox
98.2 F 93 22 105/83 93
10/09/24 07:10 10/09/24 09:43 10/09/24 07:10 10/09/24 09:43 10/09/24 07:10
I&O
10/08/24 10/09/24 10/10/24
06:59 06:59 06:59
Intake Total 240 / 240 660 / 660
Output Total 0 / 0
Balance 240 / 240 660 / 660
Review of Systems
-
History Source: Patient
All other systems: Reviewed and negative
Physical Exam
-
General: Well Developed, No Apparent Distress, Comfortable and Obese
HEENT: Normocephalic, Atraumatic and Moist Mucous Membranes
Respiratory: Clear to Auscultation and Non Labored Respirations
Cardiac: Regular Rhythm and S1/S2; Negative Murmur, Rub or Gallop
GI: Soft, Nontender, Nondistended and Normal Bowel Sounds
Musculoskeletal: No Clubbing, No Cyanosis and No Edema
Skin: Warm and Dry; Negative Rash
Neuro: AO x 3 and Nonfocal/Grossly Intact
Psych: Calm
Data Reviewed
-
Labs: Labs Reviewed by me and Discussed with Patient
[2024-10-09] MEDS: STERILE WATER FOR INJECTION IV (11:34)
[2024-10-09 11:50] LABS: Glucose - Point of Care 190 mg/dl (70-99)
--- NOTE | 2024-10-09 12:15 | WOUNDNOTE ---
R THIGH (MEDIAL UPPER)
[2024-10-09 12:50] VITALS: BP 109/73
--- NOTE | 2024-10-09 16:26 | W.DCSUMMARY ---
Discharge Summary
Discharge Data
Date of Admission: 10/02/24
Date of Discharge: 10/09/24
-
Pending Results: No
Hospital Course
Ms. Magdaleno is a 78-year-old female with a medical history of HFpEF, dementia, diabetes mellitus, hypertension, and CKD who presented from her nursing facility with hypoxia and fever.� She had recently been discharged on 09/28/2024 after treatment
for a UTI.� At the time of this admission she was found to be tachycardic and had a low-grade fever.� She was admitted for treatment of sepsis with acute hypoxic respiratory failure.�
Chest imaging showed no evidence of PE, pulmonary edema, or acute infection.� However imaging did show persistent low lung volumes and bronchomalacia.� Low lung volumes on imaging is likely due to poor inspiratory effort.� Her respiratory panel was
negative for COVID or influenza.� She was started empirically on broad-spectrum antibiotics for a possible infection especially considering she had recently been treated with a course of antibiotics for UTI.� However cultures remain negative and
ultimately no infection was identified.� She remained afebrile since initial fever at time of admission.� She was initially requiring 6 L supplemental oxygen via nasal cannula, but was able to be titrated down to 2 to 3 L and occasionally to room
air while breathing comfortably and saturating in the mid to low 90s.� She would benefit from ongoing supplemental oxygen via nasal cannula as needed after discharge.�
She developed a few episodes of soft stools which were negative for C. difficile and norovirus.� Her metformin was briefly held in case it was contributing to her GI symptoms, although she reported no discomfort and was given Imodium as needed.�
Ultimately her metformin was restarted at a lower dose.�
Her home valsartan was held due to low blood pressure.� Valsartan will continue to be held after discharge as she does not appear to require an antihypertensive regimen at this time.� Her blood pressure should continually be monitored and blood
pressure medications could be restarted as needed.� However, I would recommend a liberalized blood pressure goal of 130s over 80s for her considering her age and normal systolic function.� She has a history of HFpEF but does not appear to be on a
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
At time of hospital discharge she was hemodynamically stable.� She will be discharged back to her long-term care facility where she will have completed total 7-day antibiotic course.� She should continue to use supplemental oxygen via nasal cannula
as needed.� She will need follow-up with her PCP and cardiology after discharge.
Discharge Plan
-
Patient Disposition: Prison/SNF
Discharge Diagnosis/Procedures: Acute hypoxic respiratory failure
Aspiration
Condition: Fair
Diet: Diabetic, Carb Controlled
Additional Diets: Soft and Bite Sized
Activity: With assistance and As tolerated
Driving Restrictions: No driving
Bathing Restrictions: None
Blood Work: BMP and CBC 1 week after discharge from hospital
Other Services: PT and OT
Activity Restrictions/Additional Instructions:
10/09/24 warm compress LUE affected area bid x 10-15 minutes.
Air mattress.
Miconazole powder to livia/groin/buttocks affected areas bid.
Turning schedule
Elevate heels off bed with pillows.
Pressure redistributing chair cushion (i.e. Air, gel).
Instructions: Aspiration pneumonia - Discharge instructions
Referrals:
Anderson Tinajero MD [Family Provider] -
Additional Discharge Medication Instructions: Continue Cefuroxime and metronidazole for 1 day after DC
Prescriptions:
New
cefuroxime axetil 250 mg tablet
250 mg PO BID 3 Days Qty: 6 0RF
metronidazole 250 mg Tablet
250 mg PO Q8 3 Days Qty: 9 0RF
Continued
donepezil [Aricept] 10 mg Tablet
10 mg PO HS
ascorbic acid (vitamin C) 500 mg Tablet
1,000 mg PO DAILY
nystatin 100,000 unit/gram Powder
1 applic TOPICAL DAILY
acetaminophen 325 mg Tablet
650 mg PO Q4HPRN PRN (Reason: mild pain)
melatonin 3 mg Tablet
3 mg PO HS
allopurinol 100 mg Tablet
100 mg PO DAILY
pantoprazole [Protonix] 20 mg Tablet,Delayed Release (Dr/Ec)
20 mg PO BID
potassium chloride 20 mEq tablet,ER particles/crystals
20 meq PO BID
dextromethorphan-guaifenesin [Robitussin Cough-Chest Finesse DM] 5-100 mg/5 mL Liquid
10 ml PO Q4HPRN PRN (Reason: cough)
rosuvastatin 20 mg Tablet
30 mg PO DAILY
Balmex Adult Care 11.3 % Cream
1 applic TOPICAL BIDPRN PRN (Reason: sacral area redness)
mirabegron [Myrbetriq] 25 mg Tablet Extended Release 24 Hr
25 mg PO DAILY
furosemide [Lasix] 20 mg Tablet
20 mg PO DAILY
magnesium hydroxide [Milk of Magnesia] 400 mg/5 mL Suspension
2,400 mg PO DAILYPRN PRN (Reason: if no bm by 4th day)
Fleet Enema 19-7 gram/118 mL Enema
118 ml IN DAILYPRN PRN (Reason: if no bm by 6th day)
alum-mag hydroxide-simeth [Mylanta Maximum Strength] 400-400-40 mg/5 mL Suspension
10 ml PO Q4HPRN PRN (Reason: gerd)
Calcium 600 with Vitamin D3 600 mg-10 mcg (400 unit) Tablet,Chewable
1 tab PO DAILY
Changed
metformin 1,000 mg Tablet
1,000 mg PO DAILY Qty: 0 0RF
Discontinued
metformin 500 mg Tablet
500 mg PO DAILY
valsartan 80 mg Tablet
80 mg PO DAILY
estradiol [Estrace] 0.01 % (0.1 mg/gram) Cream
0 g VAGINAL MOTH
escitalopram oxalate 10 mg Tablet
10 mg PO DAILY
cefuroxime axetil 500 mg Tablet
500 mg PO BID Qty: 0 0RF
bisacodyl [Dulcolax (bisacodyl)] 10 mg Suppository
10 mg IN DAILYPRN PRN (Reason: if no bm by 5th day and/or aftr mom)
Discharge Orders:
Discharge Patient (As Directed); Ordered 10/07/24
Ordered By: Luis Bravo
Discharge Date and Time
Discharge Date/Time: 10/09/24 15:29
Print Language: COLOMBIAN
--- NOTE | 2024-10-09 17:54 | ED.GENMED ---
History of Present Illness
General
Chief Complaint: Breathing Problem
Source: records
Exam Limitations: dementia
Time Seen by Provider: 10/02/24 10:35
History of Present Illness
History of Present Illness:
78-year-old female presented with fever lethargy hypoxia. From the residential. No other history available. Symptoms for 1 to 2 days.
Past History
Past History
ED Past Medical History: Hypercholesterolemia, Renal failure and Valvular disease
ED Past Surgical History: Appendectomy, Orthopedic and Tonsilectomy
Social History
Tobacco: Non-smoker
Alcohol: None
Drug: None
Personal:
Living: residential
Review of Systems
Review of Systems
Unable to obtain full review of systems at this time due to: dementia
All Other Systems: Not applicable
Phy Exam
Physical Exam
Physical Exam:
GENERAL: Alert and oriented to name only.. Lethargic. Slow to answer questions. Chronically ill-appearing
EYE: Orbits normal.
NECK: Supple, no significant adenopathy.
ENT: Pharynx without erythema
CARDIAC: Tachycardic. Mildly irregular
LUNGS: Mildly hypoxic. Minimal tachypnea. Mild basilar rhonchi bilaterally
ABDOMEN: Soft, without focal tenderness or distention
NEUROLOGICAL: Alert. To name only. Grossly nonfocal
SKIN: Warm and dry, no rash or lesion, no discoloration, skin intact.
MUSCULOSKELETAL: No edema,no deformity.Good color
PSYCH: Poor eye contact
Scores
Heart Failure Risk
Heart Failure Risk Score: Not Applicable
Course
Orders/Labs/Results
Orders:
Orders
10/02/24 10:07
Electrocardiogram (*1) Urgent
Reason for Study: Shortness of Breath
EKG- Treatment ONCE
10/02/24 10:41
Cardiac Monitoring- Treatment ONCE
IV Insert/Care/Rem.- Treatment PRN
10/02/24 10:42
CR Chest Portable - 1 View Urgent
Comment:
Reason For Exam: Hypoxia
Reason Study Needs to be Portable: Patient Unstable
10/02/24 10:57
Basic Metabolic Panel Urgent
COVID-19 Antigen Urgent
Source: Nasal Swab
Complete Blood Count/With Diff Urgent
Blood Culture Q30M
JEROD Source: Blood/Venous
Specimen Description:
Influenza A+B Rapid Molecular Urgent
JEROD Source: Nasal Swab
Specimen Description:
RSV [Respiratory Syncytial Virus] Urgent
JEROD Source: Nasal Swab
Specimen Description:
Date Specimen was Collected: 10/02/24
Time Specimen was Collected: 10:51
10/02/24 11:13
Blood Culture Q30M
JEROD Source: Blood/Venous
Specimen Description:
10/02/24 13:23
Straight cath- Treatment ONCE
10/02/24 13:29
0.9% Sodium Chloride 1000 ml [Nss] 1,000 ml IV BOLUS
10/02/24 13:40
Acetaminophen [Tylenol/Feverall] 650 mg .ROUTE .STK-MED ONE
10/02/24 13:46
Acetaminophen [Tylenol/Feverall] 650 mg RECTAL NOW STA
10/02/24 13:47
Urinalysis Reflex To Culture Urgent
Date Specimen was Collected: 10/02/24
Time Specimen was Collected: 13:44
Urine Microscopic Reflex Cult Urgent
10/02/24 Dinner
1800 calorie (15 carb) Diabetic
At Your Request: Non-Participating
Diabetic Diet: Sodium, 2 Gram
10/02/24 15:13
Chest/Abd/Pelvis wo Contrast CT [CT Chest/abd/pel Wo Iv Cont] Urgent
Comment:
Reason For Exam: hypoxia, febrile
10/02/24 15:19
Admit/Transfer Patient As Directed
Co-Sign Provider:
Level of Care: Inpatient admission
Assign to:: Telemetry
Physician / Group: Gael Caraballo
Diagnosis: sepsis, URI, hypoxia
Reason for Telemetry: Arrhythmia
Date to Stop Telemetry: 10/05/24
Time to Stop Telemetry: 11:00
Reason for Hospitalization: sepsis, URI, hypoxia
Expected length of stay greater than two midnights?: Yes
ELOS- Estimated Length of Stay in days: 3
I certify the patient meets the requirements for IP care: Yes
PRN Pain Medication Management As Directed
May give lesser potent ordered pain med per pt: Yes
preference::
Protocol:: Medication orders for pain may be administered in a
manner that supports deferring to patient preference
when the pt is:
- Requesting an ordered lesser potent pain medication.
Least to most potent pain medications are defined
as: acetaminophen < NSAID < tramadol < opioids
(morphine, oxycodone, hydromorphone).
- Requesting a lesser dose of the same medication IF
ORDERED.
- Requesting a less intrusive route of administration
if both routes are prescribed by the provider (PO <
IV).
10/02/24 15:21
Code Status As Directed
Resuscitation Status: Do not resuscitate
Based on pt advanced directive or healthcare POA form: Yes
Physician note:: as noted in previous admission from POA
DNR Bracelet Application ONCE
10/02/24 15:25
Piperacillin/Tazo 3.375 Gram [Zosyn] 3.375 gram in 50 ml IV NOW
10/02/24 15:26
Vancomycin [Vancocin] 2,000 mg 0.9% Sodium Chloride 500 ml [Nss] 500 ml IV NOW
10/02/24 20:22
0.9% Sodium Chloride 1000 ml [Nss] 1,000 ml IV 70 mls/hr
Acetaminophen [Tylenol] 650 mg PO Q4HPRN PRN
Heparin 5,000 units SC Q8
Pantoprazole [Protonix] 20 mg PO BID
Potassium Chloride [KCl] 20 meq PO BID
VANCOMYCIN Pharmacy to Dose [VANCOCIN Pharmacy to Dose] 1 each Pharmacy To Prepare [Call Pharmacy To Prepare] 0 ml IV PER PROTOCOL
10/02/24 20:22
Activity As Directed
Activity Level: Out of Bed-Early Mobility
Vital Signs As Directed
Frequency: Per unit guidelines
Weight As Directed
Frequency: Daily
O2 Therapy [RESP] Routine
Titrate/Wean O2 to maintain O2 sat greater than (%): 93
DX Deep Vein Thrombosis Video Routine
10/02/24 20:28
Guaifenesin Dm (Sugar Free) [Safetussin Dm (Sugar/Alcohol Free)] 200 mg PO Q4HPRN PRN
10/02/24 22:00
Donepezil HCl [Aricept] 10 mg PO HS
Melatonin 3 mg PO HS
10/03/24 06:33
Basic Metabolic Panel IN AM
Complete Blood Count/No Diff IN AM
10/03/24 08:00
Allopurinol [Zyloprim] 100 mg PO DAILY
Calcium Carbonate/Vitamin D3 [Oscal 500 + D] 500 mg PO DAILY
Escitalopram Oxalate [Lexapro] 10 mg PO DAILY
Miconazole Nitrate [Desenex/Mitrazol/Zeasorb] See Dose Instructions TOPICAL DAILY
Mirabegron Extended Release [Myrbetriq Extended Release] 25 mg PO DAILY
Rosuvastatin Calcium [Crestor] 30 mg PO DAILY
Valsartan [Diovan] 80 mg PO DAILY
10/04/24 07:04
Basic Metabolic Panel IN AM
Complete Blood Count/No Diff IN AM
10/05/24 07:09
Basic Metabolic Panel IN AM
Complete Blood Count/No Diff IN AM
10/05/24 11:00
DC Protocol for Telemetry ONCE
Abnormal Lab Results
10/02/24 10/02/24
10:57 13:47
WBC 14.1 H 10^3/uL
(4.8-10.8)
MCH 31.1 H pg
(27.0-31.0)
MCHC 32.0 L g/dL
(33.0-37.0)
Abs Immat Gran (auto) 0.1 H 10^3/uL
(0-0.05)
Absolute Neuts (auto) 11.4 H 10^3/uL
(1.4-6.5)
Absolute Monos (auto) 1.1 H 10^3/uL
(0.1-0.6)
Immature Gran % 0.8 H %
(0-0.5)
Neutrophils % 80.9 H %
(42.2-75.2)
Lymphocytes % 9.8 L %
(20.5-51.1)
Carbon Dioxide 33 H mmol/L
(22-30)
BUN 61 H mg/dl
(7-17)
Creatinine 1.7 H mg/dL
(0.6-1.0)
Glucose 215 H mg/dl
(70-99)
Ur Occult Blood Reflex 2+ A
(Negative)
Urine Albumin (Reflex) 1+ A
(Neg - Trace)
10/02/24 10:57
10/02/24 10:57
Vital Signs
Initial and Last Documented VS:
Initial Vital Signs
Temp Pulse Resp BP Pulse Ox
99.3 F 124 16 102/70 95
10/02/24 09:55 10/02/24 09:55 10/02/24 09:55 10/02/24 09:55 10/02/24 09:55
Last Documented Vital Signs
Temp Pulse Resp BP Pulse Ox
98.4 F 90 20 109/73 93
10/09/24 12:50 10/09/24 12:50 10/09/24 14:20 10/09/24 12:50 10/09/24 14:20
MDM/Problems Addressed
Differential Diagnosis Includes:
Patient presented hypoxic, tachycardic, fever. No obvious clinical source of infection. Warrants further inpatient workup cultures etc.
*Radiology
Radiology exam reviewed: radiology read reviewed (Negative)
*Pulse Oximetry
Patient hypoxic: yes
*EKG
Interpreted by ED Provider?: Yes
Interpretation: abnormal
Comparison EKG: changes noted
Heart Rate: 137
Rate: tachycardiac
Rhythm: sinus
[place]: left axis deviation
QRS Pattern: left vent hypertrophy
Ischemia: non-specific ST changes
*Rough Planer Tender Interpretation
Rate: tachycardiac
Interpretation: abnormal
Heart Rate: 132
Rhythm: sinus
*Critical Care Note
Total Time (30-74mins, 75-104mins- exclusive of procedures): 15
Data Reviewed
Review of Other/Old Records Reveals: Labs and Testing
ED Attending Note
-
Portions of this chart may have been created with voice recognition software.� Occasional wrong word or��sound alike� substitutions may have occurred due to the inherent limitations of voice recognition software.
Discharge Plan
Departure
Patient Disposition: Admit
Date of Disposition: 10/02/24
Time of Disposition: 14:27
Presentation/result/management discussed w/ accepting MD/DO: Hospitalist
Discharge Problem:
Hypoxia, Fever, Renal insufficiency
Interventions
Interventions:
*Risk Screen - Suicide Last Done: 10/02/24 22:37
*General Assessment Last Done: 10/02/24 09:55
*Neglect/Abuse Screening Last Done: 10/02/24 09:55
*ED COVID-19 Vaccine History Last Done: 10/02/24 11:17
*Nursing Disposition Last Done: 10/02/24 20:20
ED- Cardiac Assessment Last Done: 10/02/24 11:17
ED- Neurological Assessment Last Done: 10/02/24 11:17
ED- Pulmonary Assessment Last Done: 10/02/24 11:17
ED-Skin Assessment Last Done: 10/02/24 11:20
Discharge Date and Time
Discharge Date/Time: 10/02/24 20:20
== END 2024-10-09 15:29 | DRG 871 ==
LOC: 4 EAST ACU 15:42
PROVIDERS: Internal Medicine; Nurse Practitioner Family; ADMITTING PHYSICIAN Hospitalist; ATTENDING PHYSICIAN Internal Medicine; CONSULT PHYSICIAN Internal Medicine Hospice and Palliative Medicine; EMERGENCY PHYSICIAN Emergency Medicine; FAMILY PHYSICIAN Family Medicine
DX: A41.9 Sepsis, unspecified organism (principal); J96.01 Acute respiratory failure with hypoxia; I50.32 Chronic diastolic (congestive) heart failure; N17.9 Acute kidney failure, unspecified; R65.20 Severe sepsis without septic shock; Z79.899 Other long term (current) drug therapy; K21.9 Gastro-esophageal reflux disease without esophagitis; Z79.84 Long term (current) use of oral hypoglycemic drugs; E78.00 Pure hypercholesterolemia, unspecified; F03.90 Unspecified dementia, unspecified severity, without behavioral disturbance, psychotic disturbance, mood disturbance, and anxiety; Z66 Do not resuscitate; J98.09 Other diseases of bronchus, not elsewhere classified; Z11.52 Encounter for screening for COVID-19; E11.9 Type 2 diabetes mellitus without complications; I11.0 Hypertensive heart disease with heart failure
CPT/HCPCS: 36415; 51701; 71045; 71046; 71250; 71275; 74176; 80048; 80053; 80202; 81003; 81015; 82962; 83735; 84100; 84146; 85025; 85027; 87040; 87070; 87324; 87449; 87502; 87798; 87807; 87811; 92610; 93005; 96360; 99285; Q9967

== ENCOUNTER 2024-10-12 19:21 | Inpatient (IN) | payer MEDICARE, BC, SELFPAY ==
[2024-10-12] VITALS (7 sets, daily range): BP systolic 100–116; BP diastolic 72–90; BMI 30.3
--- NOTE | 2024-10-12 16:12 | ED.GENMED ---
History of Present Illness
<Brenda Beck PA-C - Last Filed: 10/12/24 21:17>
General
Chief Complaint: Heart Rate Problem
Source: patient
Exam Limitations: none
Time Seen by Provider: 10/12/24 16:10
Nursing documentation reviewed up to this point in time: agreed with
History of Present Illness
History of Present Illness:
This is a 78-year-old female with a past medical history of severe dementia, hypertension, hyperlipidemia, chronic kidney disease, diabetes who presents emergency department today with concerns of a normal vital signs. She was at her [facility]
today when staff was doing rounds and noticed that her her heart rate was higher and her blood pressure was lower. Her nurse practitioner noticed this and assessed her and advised that she report to the emergency department. I spoke with her nurse
practitioner on the phone who notes that patient is largely nonverbal at baseline and is confused at baseline. She was discharged from the hospital on cefuroxime and flagyl. She was put on oxygen at that time and she has not been weened off
since,was advised to use oxygen as needed as imaging studies showed bronchomalacia. When asked about her symptoms and if she has shortness of breath or chest pain, patient says 'I don't know.'
Past History
<Brenda Beck PA-C - Last Filed: 10/12/24 21:17>
Past History
ED Past Medical History: Hypercholesterolemia, Renal failure and Valvular disease
ED Past Surgical History: Appendectomy, Orthopedic and Tonsilectomy
Social History
Tobacco: Non-smoker
Alcohol: None
Drug: None
Personal:
Living: [facility]
Review of Systems
<Brenda Beck PA-C - Last Filed: 10/12/24 21:17>
Review of Systems
All Other Systems: ROS reviewed and negative except as documented in HPI and ROS
Phy Exam
<Brenda Beck PA-C - Last Filed: 10/12/24 21:17>
Physical Exam
Physical Exam:
General: Patient is well appearing and in no acute distress; non-toxic
Skin: Warm and dry, patch of erythema noted to left upper arm
Head: Normocephalic, atraumatic
Eyes: Sclera non-icteric. EOMs intact.
Cardiac: Regular rate and rhythm, heart rate in the 90s on my exam, diastolic murmur noted
Peripheral Vascular: No lower extremity swelling or edema
Pulm: Tachypnea noted, no wheezes, rales, or rhonchi
Abdomen: No abdominal tenderness to palpation
Neuro: CN II-XII intact, no focal neurologic deficits.
Psychiatric: Appropriate mood and affect.
Sepsis
<REBECCA Mayes Last Filed: 10/12/24 21:17>
Sepsis Screening
Sepsis Assessment: Severe Sepsis
Sepsis Screening: Lactate >2mmol/L
Sepsis Screen
Sepsis Screen: Severe Sepsis
Date: 10/12/24
Time: 21:04
Course
<REBECCA Mayes Last Filed: 10/12/24 21:17>
Orders/Labs/Results
Orders:
Orders
10/12/24 Dinner
NPO
Allow oral meds: No
Allow clear liquids: No
10/12/24 16:12
Electrocardiogram (*1) Urgent
Reason for Study: Chest Pain
Cardiac Monitoring- Treatment ONCE
EKG- Treatment ONCE
IV Insert/Care/Rem.- Treatment PRN
10/12/24 16:15
COVID-19 Antigen Urgent
Source: Nasal Swab
Complete Blood Count/With Diff Urgent
Comprehensive Metabolic Panel Urgent
Lactic Acid Urgent
Troponin I Urgent
Influenza A+B Rapid Molecular Urgent
JEROD Source: Nasal Swab
Specimen Description:
10/12/24 16:29
Chest [CR Chest - 2 Views ] Urgent
Comment:
Reason For Exam: sob
10/12/24 17:18
Straight cath- Treatment ONCE
0.9% Sodium Chloride 1000 ml [Nss] 1,000 ml IV BOLUS
Piperacillin/Tazo 3.375 Gram [Zosyn] 3.375 gram in 50 ml IV NOW
10/12/24 17:46
Urinalysis Reflex To Culture Urgent
Date Specimen was Collected: 10/12/24
Time Specimen was Collected: 17:36
Urine Microscopic Reflex Cult Urgent
Blood Culture Q30M
JEROD Source: Blood/Venous
Specimen Description:
Blood Culture Q30M
JEROD Source: Blood/Venous
Specimen Description:
Respiratory Syncytial Virus Urgent
JEROD Source: Nasal Swab
Specimen Description:
Date Specimen was Collected: 10/12/24
Time Specimen was Collected: 17:36
Urine Culture Urgent
JEROD Source: U
Specimen Description:
Date Specimen was Collected: 10/12/24
Time Specimen was Collected: 17:36
10/12/24 18:16
Admit/Transfer Patient As Directed
Co-Sign Provider:
Level of Care: Inpatient admission
Assign to:: Telemetry
Physician / Group: Heath Foreman
Diagnosis: sepsis unknown origin
Reason for Telemetry: Arrhythmia
Date to Stop Telemetry: 10/15/24
Time to Stop Telemetry: 11:00
Reason for Hospitalization: sepsis unknown origin
Expected length of stay greater than two midnights?: Yes
ELOS- Estimated Length of Stay in days: 3
I certify the patient meets the requirements for IP care: Yes
PRN Pain Medication Management As Directed
May give lesser potent ordered pain med per pt: Yes
preference::
Protocol:: Medication orders for pain may be administered in a
manner that supports deferring to patient preference
when the pt is:
- Requesting an ordered lesser potent pain medication.
Least to most potent pain medications are defined
as: acetaminophen < NSAID < tramadol < opioids
(morphine, oxycodone, hydromorphone).
- Requesting a lesser dose of the same medication IF
ORDERED.
- Requesting a less intrusive route of administration
if both routes are prescribed by the provider (PO <
IV).
10/12/24 18:19
Code Status As Directed
Resuscitation Status: Do not resuscitate
Based on pt advanced directive or healthcare POA form: Yes
DNR Bracelet Application ONCE
10/12/24 18:21
US Abdomen Limited Routine
Comment:
Reason For Exam: Assess for gallstones/cholecystitis
10/12/24 18:49
0.9% Sodium Chloride 500 ml [Nss] 500 ml IV BOLUS
10/12/24 20:57
0.9% Sodium Chloride 1000 ml [Nss] 1,000 ml IV 100 mls/hr
Ipratropium/Albuterol Sulfate [Duoneb] 3 ml INH R QID
Pantoprazole [Protonix] 20 mg PO BID
Potassium Chloride [KCl] 20 meq PO BID
10/12/24 20:57
GASTROINTESTINAL CONSULT Routine
Consulting Provider: Amber Linder
Was physician already notified: Yes
Activity As Directed
Activity Level: Out of Bed-Early Mobility
Vital Signs As Directed
Frequency: Per unit guidelines
Weight As Directed
Frequency: Daily
O2 Therapy [RESP] Routine
Titrate/Wean O2 to maintain O2 sat greater than (%): 93
Ot Eval And Treat Routine
Pt Eval And Treat Routine
Activity Level: Out of Bed-Early Mobility
Speech Therapy Eval & Treat Routine
DX Deep Vein Thrombosis Video Routine
10/12/24 22:00
Donepezil HCl [Aricept] 10 mg PO HS
Melatonin 3 mg PO HS
10/13/24 00:00
Heparin 5,000 units SC Q8
10/13/24 06:00
Complete Blood Count/With Diff IN AM
Comprehensive Metabolic Panel IN AM
10/13/24 08:00
Allopurinol [Zyloprim] 100 mg PO DAILY
Ascorbic Acid [Vitamin C] 1,000 mg PO DAILY
Escitalopram Oxalate [Lexapro] 10 mg PO DAILY
Rosuvastatin Calcium [Crestor] 30 mg PO DAILY
calcium carbonate-vitamin D3 [Calcium 600 with Vitamin D3] 1 tablet PO DAILY
mirabegron [Myrbetriq] 25 mg PO DAILY
10/14/24 06:00
Complete Blood Count/With Diff IN AM
Comprehensive Metabolic Panel IN AM
10/15/24 06:00
Complete Blood Count/With Diff IN AM
Comprehensive Metabolic Panel IN AM
10/15/24 11:00
DC Protocol for Telemetry ONCE
Abnormal Lab Results
10/12/24 10/12/24
16:15 17:46
WBC 19.6 H 10^3/uL
(4.8-10.8)
MCHC 31.7 L g/dL
(33.0-37.0)
Plt Count 436 H D 10^3/uL
(130-400)
Abs Immat Gran (auto) 0.2 H 10^3/uL
(0-0.05)
Absolute Neuts (auto) 16.4 H 10^3/uL
(1.4-6.5)
Absolute Monos (auto) 1.7 H 10^3/uL
(0.1-0.6)
Immature Gran % 0.8 H %
(0-0.5)
Neutrophils % 83.5 H %
(42.2-75.2)
Lymphocytes % 6.3 L %
(20.5-51.1)
BUN 42 H mg/dl
(7-17)
Creatinine 1.1 H mg/dL
(0.6-1.0)
Glucose 192 H mg/dl
(70-99)
Lactic Acid 2.3 H mmol/L
(0.7-2.0)
AST 563 H* U/L
(14-36)
ALT 175 H U/L
(0-35)
Alkaline Phosphatase 336 H U/L
(38-126)
Ur Occult Blood Reflex 3+ A
(Negative)
Leukocyte Esterase Rfl 1+ A
(Negative)
Urine RBC 3-6 A /HPF
(0-2)
Urine Bacteria (Reflex) Few A
(Negative)
Urine Albumin (Reflex) 1+ A
(Neg - Trace)
10/12/24 16:15
10/12/24 16:15
Vital Signs
Initial and Last Documented VS:
Initial Vital Signs
Temp Pulse Resp Pulse Ox
99.6 F 125 35 94
10/12/24 16:11 10/12/24 16:11 10/12/24 16:11 10/12/24 16:11
Last Documented Vital Signs
Temp Pulse Resp BP Pulse Ox
99.6 F 120 25 116/80 95
10/12/24 16:11 10/12/24 20:45 10/12/24 20:45 10/12/24 20:00 10/12/24 20:45
<Jose Angel Garcia MD - Last Filed: 10/12/24 17:49>
Orders/Labs/Results
Orders:
Orders
10/12/24 Dinner
NPO
Allow oral meds: No
Allow clear liquids: No
10/12/24 16:12
Electrocardiogram (*1) Urgent
Reason for Study: Chest Pain
Cardiac Monitoring- Treatment ONCE
EKG- Treatment ONCE
IV Insert/Care/Rem.- Treatment PRN
10/12/24 16:15
COVID-19 Antigen Urgent
Source: Nasal Swab
Complete Blood Count/With Diff Urgent
Comprehensive Metabolic Panel Urgent
Lactic Acid Urgent
Troponin I Urgent
Influenza A+B Rapid Molecular Urgent
JEROD Source: Nasal Swab
Specimen Description:
10/12/24 16:29
Chest [CR Chest - 2 Views ] Urgent
Comment:
Reason For Exam: sob
10/12/24 17:18
Straight cath- Treatment ONCE
0.9% Sodium Chloride 1000 ml [Nss] 1,000 ml IV BOLUS
Piperacillin/Tazo 3.375 Gram [Zosyn] 3.375 gram in 50 ml IV NOW
10/12/24 17:46
Urinalysis Reflex To Culture Urgent
Date Specimen was Collected: 10/12/24
Time Specimen was Collected: 17:36
Urine Microscopic Reflex Cult Urgent
Blood Culture Q30M
JEROD Source: Blood/Venous
Specimen Description:
Blood Culture Q30M
JEROD Source: Blood/Venous
Specimen Description:
Respiratory Syncytial Virus Urgent
JEROD Source: Nasal Swab
Specimen Description:
Date Specimen was Collected: 10/12/24
Time Specimen was Collected: 17:36
Urine Culture Urgent
JEROD Source: U
Specimen Description:
Date Specimen was Collected: 10/12/24
Time Specimen was Collected: 17:36
10/12/24 18:16
Admit/Transfer Patient As Directed
Co-Sign Provider:
Level of Care: Inpatient admission
Assign to:: Telemetry
Physician / Group: Heath Foreman
Diagnosis: sepsis unknown origin
Reason for Telemetry: Arrhythmia
Date to Stop Telemetry: 10/15/24
Time to Stop Telemetry: 11:00
Reason for Hospitalization: sepsis unknown origin
Expected length of stay greater than two midnights?: Yes
ELOS- Estimated Length of Stay in days: 3
I certify the patient meets the requirements for IP care: Yes
PRN Pain Medication Management As Directed
May give lesser potent ordered pain med per pt: Yes
preference::
Protocol:: Medication orders for pain may be administered in a
manner that supports deferring to patient preference
when the pt is:
- Requesting an ordered lesser potent pain medication.
Least to most potent pain medications are defined
as: acetaminophen < NSAID < tramadol < opioids
(morphine, oxycodone, hydromorphone).
- Requesting a lesser dose of the same medication IF
ORDERED.
- Requesting a less intrusive route of administration
if both routes are prescribed by the provider (PO <
IV).
10/12/24 18:19
Code Status As Directed
Resuscitation Status: Do not resuscitate
Based on pt advanced directive or healthcare POA form: Yes
DNR Bracelet Application ONCE
10/12/24 18:21
US Abdomen Limited Routine
Comment:
Reason For Exam: Assess for gallstones/cholecystitis
10/12/24 18:49
0.9% Sodium Chloride 500 ml [Nss] 500 ml IV BOLUS
10/12/24 20:57
0.9% Sodium Chloride 1000 ml [Nss] 1,000 ml IV 100 mls/hr
Ipratropium/Albuterol Sulfate [Duoneb] 3 ml INH R QID
Pantoprazole [Protonix] 20 mg PO BID
Potassium Chloride [KCl] 20 meq PO BID
10/12/24 20:57
GASTROINTESTINAL CONSULT Routine
Consulting Provider: Amber Linder
Was physician already notified: Yes
Activity As Directed
Activity Level: Out of Bed-Early Mobility
Vital Signs As Directed
Frequency: Per unit guidelines
Weight As Directed
Frequency: Daily
O2 Therapy [RESP] Routine
Titrate/Wean O2 to maintain O2 sat greater than (%): 93
Ot Eval And Treat Routine
Pt Eval And Treat Routine
Activity Level: Out of Bed-Early Mobility
Speech Therapy Eval & Treat Routine
DX Deep Vein Thrombosis Video Routine
10/12/24 22:00
Donepezil HCl [Aricept] 10 mg PO HS
Melatonin 3 mg PO HS
10/13/24 00:00
Heparin 5,000 units SC Q8
10/13/24 06:00
Complete Blood Count/With Diff IN AM
Comprehensive Metabolic Panel IN AM
10/13/24 08:00
Allopurinol [Zyloprim] 100 mg PO DAILY
Ascorbic Acid [Vitamin C] 1,000 mg PO DAILY
Escitalopram Oxalate [Lexapro] 10 mg PO DAILY
Rosuvastatin Calcium [Crestor] 30 mg PO DAILY
calcium carbonate-vitamin D3 [Calcium 600 with Vitamin D3] 1 tablet PO DAILY
mirabegron [Myrbetriq] 25 mg PO DAILY
10/14/24 06:00
Complete Blood Count/With Diff IN AM
Comprehensive Metabolic Panel IN AM
10/15/24 06:00
Complete Blood Count/With Diff IN AM
Comprehensive Metabolic Panel IN AM
10/15/24 11:00
DC Protocol for Telemetry ONCE
Abnormal Lab Results
10/12/24 10/12/24
16:15 17:46
WBC 19.6 H 10^3/uL
(4.8-10.8)
MCHC 31.7 L g/dL
(33.0-37.0)
Plt Count 436 H D 10^3/uL
(130-400)
Abs Immat Gran (auto) 0.2 H 10^3/uL
(0-0.05)
Absolute Neuts (auto) 16.4 H 10^3/uL
(1.4-6.5)
Absolute Monos (auto) 1.7 H 10^3/uL
(0.1-0.6)
Immature Gran % 0.8 H %
(0-0.5)
Neutrophils % 83.5 H %
(42.2-75.2)
Lymphocytes % 6.3 L %
(20.5-51.1)
BUN 42 H mg/dl
(7-17)
Creatinine 1.1 H mg/dL
(0.6-1.0)
Glucose 192 H mg/dl
(70-99)
Lactic Acid 2.3 H mmol/L
(0.7-2.0)
AST 563 H* U/L
(14-36)
ALT 175 H U/L
(0-35)
Alkaline Phosphatase 336 H U/L
(38-126)
Ur Occult Blood Reflex 3+ A
(Negative)
Leukocyte Esterase Rfl 1+ A
(Negative)
Urine RBC 3-6 A /HPF
(0-2)
Urine Bacteria (Reflex) Few A
(Negative)
Urine Albumin (Reflex) 1+ A
(Neg - Trace)
10/12/24 16:15
10/12/24 16:15
Vital Signs
Initial and Last Documented VS:
Initial Vital Signs
Temp Pulse Resp Pulse Ox
99.6 F 125 35 94
10/12/24 16:11 10/12/24 16:11 10/12/24 16:11 10/12/24 16:11
Last Documented Vital Signs
Temp Pulse Resp BP Pulse Ox
99.6 F 120 25 116/80 95
10/12/24 16:11 10/12/24 20:45 10/12/24 20:45 10/12/24 20:00 10/12/24 20:45
<Brenda Beck PA-C - Last Filed: 10/12/24 21:17>
MDM/Problems Addressed
Differential Diagnosis Includes:
ddx include viral syndrome, UTI, bacteremia, pneumonia
MDM/Problems Addressed:
78 y/o female with pmh of HTN, HLP, CHF, CKD, presents to the ER today with concerns of increasing lethargy and abnormal vital signs. Confused and largely non-verbal at baseline. Vital signs and lab work concerning for sepsis with urine as a
possible source as patient was discharged from the hospital on oct 09 with sepsis and positive urine culture. Zosyn and fluids started. Case discussed with hospitalist. Patient referred for admission.
<Brenda Beck PA-C - Last Filed: 10/12/24 21:17>
*Pulse Oximetry
Patient hypoxic: yes
*Critical Care Note
Total Time (30-74mins, 75-104mins- exclusive of procedures): Not Applicable
<Brenda Beck PA-C - Last Filed: 10/12/24 21:17>
Update Note
Update Note:
6:47 pm--Patient tachycardic again in the 120s, BP 109/75 after a liter of fluids. Lungs clear of crackles. Will give 500 ml more of fluid
ED Attending Note
<Brenda Beck PA-C - Last Filed: 10/12/24 21:17>
-
Portions of this chart may have been created with voice recognition software.� Occasional wrong word or��sound alike� substitutions may have occurred due to the inherent limitations of voice recognition software.
<Jose Angel Garcia MD - Last Filed: 10/12/24 17:49>
ED Attending Note
Patient seen and examined by attending physician: Yes
ED Attending Note:
Patient with history of dementia, presents [facility] ED from [facility] secondary to increased lethargy and confusion, along with increased heart rate and low blood pressure. Patient was discharge from the hospital recently after being treated for
urinary tract infection. Upon arrival, patient is alert and awake, but confused. Patient offers no additional information at this time.
Physical Exam
General: no apparent distress, not acutely ill. afebrile. tachycardic. overweight
Head: nc/at. eomi
Neck: supple. normal range of motion.
Heart: s1/s2 regular rate and rhythm, no murmur. equal radial pulses.
Lungs: no acute respiratory distress. clear bilaterally
Abdomen: normal bowel sounds. not tender.
Neuro: alert and awake x 1. no focal neurological deficits
Skin: no rash
Psychiatric: well kept. interactive and cooperative
Extremities: LE nonpitting edema. no calf tenderness.
History, exam, along with blood work concerning for sepsis, possibly secondary to incompletely treated UTI versus other sources.
Patient started IV fluids along with IV antibiotics.
Awaiting urinalysis after straight catheterization.
Blood culture and urine culture pending.
Discharge Plan
Departure
Patient Disposition: Admit
Date of Disposition: 10/12/24
Time of Disposition: 17:38
Admit to: ICU
Presentation/result/management discussed w/ accepting MD/DO: Hospitalist
Condition: Fair
Discharge Problem:
Sepsis
Interventions
Interventions:
*Risk Screen - Suicide Last Done: 10/12/24 16:09
*General Assessment Last Done: 10/12/24 16:09
*Neglect/Abuse Screening Last Done: 10/12/24 16:09
ED- Fall Risk Assessment Last Done: 10/12/24 16:32
*ED COVID-19 Vaccine History Last Done: 10/12/24 16:09
*Nursing Disposition Last Done: 10/12/24 20:58
ED- Cardiac Assessment Last Done: 10/12/24 16:32
ED- Pulmonary Assessment Last Done: 10/12/24 16:32
Discharge Date and Time
Discharge Date/Time: 10/12/24 20:58
[2024-10-12 16:24] LABS: % Basophils 0.4 % (0-2); % Eosinophils 0.3 % (0-6); % Immature Granulocytes 0.8 % (0-0.5); % Lymphocytes 6.3 % (20.5-51.1); % Monocytes 8.7 % (1.7-9.3); % Neutrophils 83.5 % (42.2-75.2); Absolute Basophils 0.1 10^3/uL (0-0.2); Absolute Eosinophils 0.1 10^3/uL (0-0.7); Absolute Immature Granulocytes 0.2 10^3/uL (0-0.05); Absolute Lymphocytes 1.2 10^3/uL (1.2-3.4); Absolute Monocytes 1.7 10^3/uL (0.1-0.6); Absolute Neutrophils 16.4 10^3/uL (1.4-6.5); Hematocrit 41.9 % (37.0-47.0); Hemoglobin 13.3 g/dL (12.0-16.0); Mean Corp Hgb Conc. 31.7 g/dL (33.0-37.0); Mean Corpuscular Hgb 30.7 pg (27.0-31.0); Mean Corpuscular Volume 96.8 fL (81.0-99.0); Mean Platelet Volume 9.2 fL (7.4-10.4); Nucleated Red Blood Cells % 0 %; Platelet Count 436 10^3/uL (130-400); Red Blood Cell Count 4.33 10^6/uL (4.20-5.40); Red Cell Dist. Width 13.9 % (11.5-14.5); White Blood Cell Count 19.6 10^3/uL (4.8-10.8)
[2024-10-12 16:34] LABS: Lactic Acid 2.3 mmol/L (0.7-2.0)
[2024-10-12 16:45] LABS: ALT (SGPT) 175 U/L (0-35); AST (SGOT) 563 U/L (14-36); Albumin 3.7 g/dl (3.5-5.0); Alkaline Phosphatase 336 U/L (38-126); Blood Urea Nitrogen 42 mg/dl (7-17); Calcium 9.6 mg/dl (8.4-10.2); Carbon Dioxide 28 mmol/L (22-30); Chloride 100 mmol/L (98-107); Glucose 192 mg/dl (70-99); Potassium 4.6 mmol/L (3.5-5.1); Sodium 140 mmol/L (135-145); Total Bilirubin 0.6 mg/dl (0.2-1.3); eGFR 51.43
[2024-10-12 16:46] LABS: Troponin I 0.019 ng/ml
[2024-10-12 16:50] LABS: COVID-19 Antigen Negative (Negative)
--- NOTE | 2024-10-12 17:42 | HPS.HSE ---
Addendum entered and electronically signed by Heath Foreman DO 10/13/24 08:27:
Correction: Confirmed with emergency department that cultures were in fact taken prior to initiation of antibiotic. Suspect a lag time on EMR where order disappeared but pending results did not appear.
Original Note:
Family Physician
<BIPIN Wagner - Last Filed: 10/12/24 18:24>
-
Family Physician: Anderson Tinajero MD
Chief Complaint
<BIPIN Wagner - Last Filed: 10/12/24 18:24>
-
abnormal vital signs and lethargy
History of Present Illness
Patient is a 78-year-old female with past medical history significant for hypertension, hyperlipidemia, DM II, CKD, HFpEF and dementia who presented to [facility] ED from detention with reported abnormal vital signs and lethargy. Patient send
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
Medical History
<BIPIN Wagner - Last Filed: 10/12/24 18:24>
Past Medical History
Past Medical History: Reports Other
Additional Past Medical History:
benign hypertension
hyperlipidemia
DM II
CKD
dementia
HFpEF
Past Surgical History: Reports Other
Additional Past Surgical History:
right total knee
right inguinal hernia
lumbar fusion
appendectomy
tonsillectomy
Social History
Unable to obtain full social history at this time due to: Dementia
Family History
Family History: Unable to Obtain
Allergies / Home Medications
Allergies reflects when Allergies were last updated in [employer].
Home Medications with original date entered in [employer]
Allergy/Medication List:
Allergies
Allergy/AdvReac Type Severity Reaction Status Date / Time
No Known Drug Allergies Allergy - Verified 10/02/24 10:07
seasonal Allergy mild Uncoded 10/02/24 10:07
congestion,
sneezing,
post nasal
drip
Home Medications
ascorbic acid (vitamin C) 500 mg tablet 1,000 mg PO DAILY Supplement 07/03/23
donepezil 10 mg tablet (Aricept) 10 mg PO HS Mental Health/Anxiety 07/03/23
nystatin 100,000 unit/gram topical powder 1 applic topical DAILY belly folds 07/03/23
acetaminophen 325 mg tablet 650 mg PO Q4HPRN PRN mild pain 06/23/24
allopurinol 100 mg tablet 100 mg PO DAILY Gout 06/23/24
dextromethorphan-guaifenesin 5 mg-100 mg/5 mL oral liquid (Robitussin Cough-Chest Congestion DM) 10 ml PO Q4HPRN PRN cough 06/23/24
melatonin 3 mg tablet 3 mg PO HS Sleep 06/23/24
mirabegron 25 mg tablet,extended release 24 hr (Myrbetriq) 25 mg PO DAILY OAB 06/23/24
pantoprazole 20 mg tablet,delayed release (Protonix) 20 mg PO BID GERD 06/23/24
potassium chloride 20 mEq tablet,extended release(part/cryst) 20 meq PO BID Supplement 06/23/24
rosuvastatin 20 mg tablet 30 mg PO DAILY High Cholesterol 06/23/24
zinc oxide-vitamin B5-vit E 11.3% topical cream (Balmex Adult Care) 1 applic topical BIDPRN PRN sacral area redness 06/23/24
furosemide 20 mg tablet (Lasix) 20 mg PO DAILY Fluid Retention/Swelling 09/25/24
calcium 600 mg (as carbonate)-vit D3 10 mcg (400 unit) chewable tablet (Calcium 600 with Vitamin D3) 1 tab PO DAILY Supplement 10/02/24
magnesium hydroxide 400 mg/5 mL oral suspension (Milk of Magnesia) 2,400 mg PO DAILYPRN PRN if no bm by 4th day 10/02/24
sodium phosphates 19 gram-7 gram/118 mL enema (Fleet Enema) 118 ml [place] DAILYPRN PRN if no bm by 6th day 10/02/24
cefuroxime axetil 250 mg tablet 250 mg PO BID 3 days #6 tabs 10/07/24
aluminum-mag hydroxide-simethicone 400 mg-400 mg-40 mg/5 mL oral susp (Mylanta Maximum Strength) 10 ml PO Q6HPRN PRN gerd 10/12/24
bisacodyl 10 mg rectal suppository (Dulcolax (bisacodyl)) 10 mg [place] DAILYPRN PRN if no bm aftr mom 10/12/24
escitalopram oxalate 10 mg tablet (Lexapro) 10 mg PO DAILY 10/12/24
ipratropium 0.5 mg-albuterol 3 mg (2.5 mg base)/3 mL nebulization soln 3 ml inhalation R QID 10/12/24
metformin 1,000 mg tablet 1,000 mg PO DAILY Diabetes 10/12/24
Review of Systems
<BIPIN Wagner - Last Filed: 10/12/24 18:24>
-
Unable to obtain full review of systems at this time due to: Dementia
Physical Exam
<BIPIN Wagner - Last Filed: 10/12/24 18:24>
Vital Signs
Vital Signs
Temp Pulse Resp BP Pulse Ox
99.6 F 97 38 111/90 94
10/12/24 16:11 10/12/24 16:30 10/12/24 16:30 10/12/24 16:12 10/12/24 16:30
Physical Exam
General: Well Developed, Well Nourished and Respiratory Distress
HEENT: NormoCephalic, Moist mucous membranes, Atraumatic, [place] Conjunctivae, Nose Appears Normal and Ears Appear Normal
Respiratory: Clear, Accessory Resp Muscle Use and Decreased Breath Sounds
Cardiac: S1/S2, Regular Rhythm and Tachycardia; No Murmur, Rub or Gallop
GI: Soft, Non Tender, Non Distended and Normal Bowel Sounds; No Organomegaly
Rectal: Deferred by Provider
Genito-urinary: Deferred by me
Musculoskeletal: No Clubbing, No Cyanosis and No Edema
Skin: Warm and IV/Catheter Site; No Rash
Neuro: Awake, Oriented (to self only ) and Nonfocal/grossly intact
Psych: Apparent Dementia
Laboratory Results
<BIPIN Wagner - Last Filed: 10/12/24 18:24>
-
10/12/24 16:15
10/12/24 16:15
Laboratory Results
Lactic Acid 2.3 mmol/L (0.7-2.0) H 10/12/24 16:15
Total Bilirubin 0.6 mg/dl (0.2-1.3) 10/12/24 16:15
AST 563 U/L (14-36) H* 10/12/24 16:15
ALT 175 U/L (0-35) H 10/12/24 16:15
Alkaline Phosphatase 336 U/L (38-126) H 10/12/24 16:15
Troponin I 0.019 ng/ml 10/12/24 16:15
Data Reviewed
<BIPIN Wagner - Last Filed: 10/12/24 18:24>
-
Lab Data: Labs Reviewed by me (WBC 19.6, BUN 42, Creat 1.1, Lactic 2.3)
Impression/Plan
<BIPIN Wagner - Last Filed: 10/12/24 18:24>
-
IMPRESSION/PLAN:
#sepsis 2/2 aspiration vs. cholangitis
CXR: pending
UA: pending
Covid and Influenza: negative
WBC 19.6
Lactic 2.3
- Admit to telemetry
- consult GI
- consult speech
- trend LFTs
- IVF
- Zosyn
#benign hypertension
- continue valsartan
#hyperlipidemia
- continue rosuvastatin
#DM II
- AccuChecks AC & HS
- hold metformin
- SSI
#CKD
BUN 42, Creat 1.1
- monitor BMP
- IVF
#dementia
- continue donepezil, and escitalopram
#HFpEF
EKG: SINUS TACHYCARDIA WITH SHORT IL
LEFT AXIS DEVIATION
PULMONARY DISEASE PATTERN
LEFT VENTRICULAR HYPERTROPHY WITH REPOLARIZATION ABNORMALITY ( R in aVL , [employer] product )
ECHO (08/23/2024): Left ventricle is small in size with mild concentric left ventricular
hypertrophy and normal systolic function. LVEF 58%.
Stage II diastolic dysfunction suggestive of abnormal relaxation and increased
filling pressures.
Normal right ventricular size and function.
Mild mitral stenosis.
Moderate aortic stenosis (peak/mean 34/21 mmHg, JODI 1.2 cm2).
- daily weights
- continue potassium chloride
- hold Lasix
Code status: DNR
DVT Prophylaxis: Heparin sq
<Heath Foreman, DO - Last Filed: 10/12/24 18:28>
-
IMPRESSION/PLAN:
#sepsis 2/2 aspiration vs. cholangitis
CXR: pending
UA: pending
Covid and Influenza: negative
WBC 19.6
Lactic 2.3
- Admit to telemetry
- consult GI
- consult speech
- trend LFTs
- IVF
- Zosyn
- Hold LAsix
#benign hypertension
- not on first line anti-hypertensives
- Hold lasix as above
#hyperlipidemia
- continue rosuvastatin
#DM II
- AccuChecks AC & HS
- hold metformin
- SSI
#HERMELINDA
BUN 42, Creat 1.1
Baseline Cr 0.7
- monitor BMP
- IVF
#dementia
- continue donepezil, and escitalopram
#HFpEF
EKG: SINUS TACHYCARDIA WITH SHORT IL
LEFT AXIS DEVIATION
PULMONARY DISEASE PATTERN
LEFT VENTRICULAR HYPERTROPHY WITH REPOLARIZATION ABNORMALITY ( R in aVL , [employer] product )
ECHO (08/23/2024): Left ventricle is small in size with mild concentric left ventricular
hypertrophy and normal systolic function. LVEF 58%.
Stage II diastolic dysfunction suggestive of abnormal relaxation and increased
filling pressures.
Normal right ventricular size and function.
Mild mitral stenosis.
Moderate aortic stenosis (peak/mean 34/21 mmHg, JODI 1.2 cm2).
- daily weights
- continue potassium chloride
- hold Lasix
Code status: DNR
DVT Prophylaxis: Heparin sq
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
[2024-10-12] MEDS: ZOSYN 50 IV (17:58)
[2024-10-12 18:12] LABS: Urine Albumin 1+ (Neg - Trace); Urine Bilirubin Negative (Negative); Urine Character Clear (Clear); Urine Color Yellow; Urine Glucose Negative (Negative); Urine Ketone Negative (Negative); Urine Leukocyte 1+ (Negative); Urine Nitrite Negative (Negative); Urine Occult Blood 3+ (Negative); Urine Urobilinogen Negative (Neg - 1+)
[2024-10-12 18:30] LABS: Urine Bacteria Few (Negative)
[2024-10-12] MEDS: NSS 500 IV (19:03)
[2024-10-12] MEDS: ARICEPT PO (21:28)
[2024-10-12] MEDS: PROTONIX PO (21:28)
[2024-10-12] MEDS: NSS 1000 IV (21:28)
[2024-10-12] MEDS: MELATONIN PO (21:28)
[2024-10-12] MEDS: KCL PO (21:28)
[2024-10-12] MEDS: DUONEB 3 ML INH (21:50)
--- NOTE | 2024-10-12 22:31 | PTCARENOTE ---
Received pt from ED @ 2100. Pt pulled over to bed. AAOx1, confused and largely nonverbal. Pt will answer some questions with one or two words. VSS. Ordered NPO, for Abd US in AM.
[2024-10-12] MEDS: HEPARIN 5000 UNITS SC (23:10)
[2024-10-13] VITALS (8 sets, daily range): BP systolic 103–119; BP diastolic 70–90; PULSE 88; O2SAT 96; BMI 31.0
[2024-10-13] MEDS: NSS 1000 IV ×2 (06:01→17:22)
[2024-10-13 08:30] LABS: % Basophils 0.6 % (0-2); % Eosinophils 1.8 % (0-6); % Immature Granulocytes 0.9 % (0-0.5); % Lymphocytes 13.5 % (20.5-51.1); % Monocytes 8.8 % (1.7-9.3); % Neutrophils 74.4 % (42.2-75.2); Absolute Basophils 0.1 10^3/uL (0-0.2); Absolute Eosinophils 0.3 10^3/uL (0-0.7); Absolute Immature Granulocytes 0.1 10^3/uL (0-0.05); Absolute Lymphocytes 1.9 10^3/uL (1.2-3.4); Absolute Monocytes 1.2 10^3/uL (0.1-0.6); Absolute Neutrophils 10.3 10^3/uL (1.4-6.5); Hematocrit 35.5 % (37.0-47.0); Hemoglobin 11.2 g/dL (12.0-16.0); Mean Corp Hgb Conc. 31.5 g/dL (33.0-37.0); Mean Corpuscular Hgb 31.4 pg (27.0-31.0); Mean Corpuscular Volume 99.4 fL (81.0-99.0); Nucleated Red Blood Cells % 0 %; Platelet Count 385 10^3/uL (130-400); Red Blood Cell Count 3.57 10^6/uL (4.20-5.40); Red Cell Dist. Width 13.9 % (11.5-14.5); White Blood Cell Count 13.9 10^3/uL (4.8-10.8)
[2024-10-13] MEDS: DUONEB 3 ML INH ×4 (08:30→20:57)
--- NOTE | 2024-10-13 09:17 | CON.GI ---
Addendum entered and electronically signed by Amber Linder MD 10/13/24 15:15:
I saw and examined the patient.
The MANAGER PROGRAM MANAGEMENT or PA's note was reviewed and I agree with the note.
Comment:
Pt is a 78 y/o female with a hx of dementia, afib, CKD who was recently admitted for pneumonia, decubitus. She received multiple antibiotics at the time. She is readmitted with tachycardia and hypoxia. She is asymptomatic. labs noted an increase
in lfts. She has no obvious abdominal pain. she did have an u/s that was negative for biliary pathology. she does have fatty liver by CT scan
abd: soft, nontender
impression:
abnormal lfts
leukocytosis
plan:
follow elevated lfts (likely secondary to multiple reasons, fatty liver, sepsis, antibiotic related)
likely not related to biliary obstruction in light of imaging but if in question can consider HIDA
check hep panel
hawkins culture
Original Note:
Consultation
-
Date/Time Consultation Requested: 10/12/242056
Date/Time Consultation Performed: 10/13/24 0900
Requesting Provider: BIPIN Wagner
Performing Provider: Dr. Linder/BIPIN John
Reason for Consultation: elevated LFTs
Medical History
Chief Complaint / HPI
Chief Complaint: Lethargy, tachycardia and hypoxemia
History of Present Illness:
78-year-old female with dementia, HFpEF, hypertension, hyperlipidemia, paroxysmal episode of A-fib with RVR, diverticulosis, chronic kidney disease, diabetes, peptic ulcer disease presents to the ER from long-term with need for 4 L of
supplemental oxygen and heart rate of 125 after recently being discharged from [facility] from 09/25/2024 through 10/09/2024 for hospital stay with acute hypoxemia as well as sepsis from unclear source possibly from pneumonia. During that
time patient was initially evaluated for low-grade fever up to 100.7, leukocytosis, hypoxia requiring oxygen up to 6 L during that hospitalization she was negative for flu negative for COVID placed on broad-spectrum antibiotics narrowed down to
ceftriaxone and Flagyl. Discharged on cefuroxime 250 mg twice daily for 3 days and Flagyl 250 mg 3 times daily for 3 days on 10/09/2024. This should have continued her until 10/12/2024. The patient is pleasantly confused sitting upright in bed with
no present complaints. She is smiling and is only oriented to self. On presentation last night in the emergency room WBC 19.6, hemoglobin 13.3, hematocrit 41.9, platelets 436, neutrophils 83.5 with lactic acid 2.3. She was afebrile and remains
afebrile. Blood pressure was within normal limits and remains within normal limits currently 116/90, last night when she arrived her heart rate was in the 120s and currently is 88, when she arrived she was tachypneic at 30 currently heart rate is
18. Currently O2 sat is 97% on room air. Sodium was 140, potassium 4.6, chloride 100, CO2 28, BUN 42, creatinine 1.1, glucose 192, total bilirubin 0.6 with AST of 563, ALT 175, alk phos 336. We are asked to evaluate for elevated LFTs. Ultrasound
of the abdomen was performed that shows no evidence of cholelithiasis, acute cholecystitis or biliary ductal dilatation. Patient shows no signs of abdominal discomfort. On palpation she is soft, nontender and on deep palpation in the right upper
quadrant without any discomfort. Repeat LFTs this morning showed total bilirubin 0.5, AST 335, ALT 150 and alk phos 262. Blood cultures, urine cultures are pending. RSV swab negative. Flu swab negative. The patient has had 2 brown bowel
movements since she has been here.
Past Medical History
Past Medical History: HTN and Other (Diverticulosis, peptic ulcer disease, chronic kidney disease, diabetes, HFpEF dementia, hyperlipidemia episode of A-fib with RVR (last hospitalization) )
Past Surgical History: Other (Appendectomy, tonsillectomy, parathyroidectomy L2-5 laminectomy, right inguinal hernia repair)
Social History
Tobacco: Other (Unable to obtain)
Alcohol: Other (Unable to obtain)
Drug: Other (Unable to obtain)
Living: Snf
Family History
Family History: Unable to Obtain and Other
Allergies / Home Medications
Allergy/AdvReac Type Severity Reaction Status Date / Time
pollen extracts Allergy SEASONAL-mild Verified 10/12/24 21:03
congestion,
sneezing,
post nasal
drip
�Medication �Instructions �Recorded
ascorbic acid (vitamin C) 500 mg 1,000 mg PO DAILY Supplement 07/03/23
tablet
donepezil 10 mg tablet (Aricept) 10 mg PO HS Mental Health/Anxiety 07/03/23
nystatin 100,000 unit/gram topical 1 applic topical DAILY belly folds 07/03/23
powder
acetaminophen 325 mg tablet 650 mg PO Q4HPRN PRN mild pain 06/23/24
allopurinol 100 mg tablet 100 mg PO DAILY Gout 06/23/24
dextromethorphan-guaifenesin 5 10 ml PO Q4HPRN PRN cough 06/23/24
mg-100 mg/5 mL oral liquid
(Robitussin Cough-Chest Congestion
DM)
melatonin 3 mg tablet 3 mg PO HS Sleep 06/23/24
mirabegron 25 mg tablet,extended 25 mg PO DAILY OAB 06/23/24
release 24 hr (Myrbetriq)
pantoprazole 20 mg tablet,delayed 20 mg PO BID GERD 06/23/24
release (Protonix)
potassium chloride 20 mEq 20 meq PO BID Supplement 06/23/24
tablet,extended release(part/cryst)
rosuvastatin 20 mg tablet 30 mg PO DAILY High Cholesterol 06/23/24
zinc oxide-vitamin B5-vit E 11.3% 1 applic topical BIDPRN PRN sacral 06/23/24
topical cream (Balmex Adult Care) area redness
furosemide 20 mg tablet (Lasix) 20 mg PO DAILY Fluid 09/25/24
Retention/Swelling
calcium 600 mg (as carbonate)-vit 1 tab PO DAILY Supplement 10/02/24
D3 10 mcg (400 unit) chewable
tablet (Calcium 600 with Vitamin
D3)
magnesium hydroxide 400 mg/5 mL 2,400 mg PO DAILYPRN PRN if no bm 10/02/24
oral suspension (Milk of Magnesia) by 4th day
sodium phosphates 19 gram-7 118 ml [place] DAILYPRN PRN if no bm by 10/02/24
gram/118 mL enema (Fleet Enema) 6th day
cefuroxime axetil 250 mg tablet 250 mg PO BID 3 days #6 tabs 10/07/24
aluminum-mag hydroxide-simethicone 10 ml PO Q6HPRN PRN gerd 10/12/24
400 mg-400 mg-40 mg/5 mL oral susp
(Mylanta Maximum Strength)
bisacodyl 10 mg rectal suppository 10 mg [place] DAILYPRN PRN if no bm 10/12/24
(Dulcolax (bisacodyl)) aftr mom
escitalopram oxalate 10 mg tablet 10 mg PO DAILY Mental 10/12/24
(Lexapro) Health/Anxiety
ipratropium 0.5 mg-albuterol 3 mg 3 ml inhalation R QID 10/12/24
(2.5 mg base)/3 mL nebulization Lung/Breathing Issues
soln
metformin 1,000 mg tablet 1,000 mg PO DAILY Diabetes 10/12/24
Review of Systems
-
Unable to obtain full review of systems at this time due to: Dementia and Other (Patient denies any complaints at present time)
Vital Signs
Temp Pulse Resp BP Pulse Ox
98.9 F 88 18 116/90 97
10/13/24 07:21 10/13/24 08:29 10/13/24 08:29 10/13/24 07:21 10/13/24 08:29
Physical Exam
Exam
General: No Apparent Distress
HEENT: Anicteric
Respiratory: Clear
Cardiac: Regular Rhythm
GI: Soft, Non Tender, Non Distended and Normal Bowel Sounds
Skin: Warm and Dry
Neuro: Awake
Psych: Confused (Patient not oriented to place or time)
Results
WBC 13.9 10^3/uL (4.8-10.8) H 10/13/24 06:34
Hgb 11.2 g/dL (12.0-16.0) L 10/13/24 06:34
Hct 35.5 % (37.0-47.0) L 10/13/24 06:34
MCV 99.4 fL (81.0-99.0) H 10/13/24 06:34
Plt Count 385 10^3/uL (130-400) 10/13/24 06:34
Absolute Neuts (auto) 10.3 10^3/uL (1.4-6.5) H 10/13/24 06:34
Sodium 140 mmol/L (135-145) 10/12/24 16:15
Potassium 4.6 mmol/L (3.5-5.1) 10/12/24 16:15
Chloride 100 mmol/L (98-107) 10/12/24 16:15
Carbon Dioxide 28 mmol/L (22-30) 10/12/24 16:15
BUN 42 mg/dl (7-17) H 10/12/24 16:15
Creatinine 1.1 mg/dL (0.6-1.0) H 10/12/24 16:15
Calcium 9.6 mg/dl (8.4-10.2) 10/12/24 16:15
Total Bilirubin 0.6 mg/dl (0.2-1.3) 10/12/24 16:15
AST 563 U/L (14-36) H* 10/12/24 16:15
ALT 175 U/L (0-35) H 10/12/24 16:15
Alkaline Phosphatase 336 U/L (38-126) H 10/12/24 16:15
Diagnostic Image Results:
US Abd 2/6/25:
IMPRESSION:
No evidence of cholelithiasis, acute cholecystitis, or biliary ductal dilation.
CXR 10/12/24:
IMPRESSION:
No acute disease of the chest
CT chest/abd/Pelvis 10/02/24:
IMPRESSION: Calcifications involving the aortic root including the aortic valve. Please correlate with any clinical signs or symptoms that would suggest significant aortic stenosis.
Coronary artery calcifications. Please correlate with symptoms of and risk factors for coronary artery disease, with further workup as clinically appropriate.
Mild to moderate atelectasis in the posterior lower lungs. Narrowing of AP dimension of the mainstem bronchi bilaterally, suggestive of bronchomalacia.
Fatty infiltration of the liver.
2 mm nephrolith in the lower pole the left kidney.
Suggestion of wall thickening involving the rectum, with stranding of the perirectal fat and a small amount of presacral edema. Findings would be most suggestive of proctitis. Neoplasia is a differential consideration, felt to be less likely.
Numerous colonic diverticula with no convincing CT evidence for diverticulitis. No evidence for bowel obstruction or free intraperitoneal air.
Bony degenerative changes as described.
Electronically signed by Caleb Prasad MD, 10/02/2024 4:40 PM
Prior GI Procedures:
EGD:
Colonoscopy 11/25/2017 (Nick): - One 10 mm polyp in the sigmoid colon, removed with a
hot snare. Resected and retrieved.
- Diverticulosis in the sigmoid colon.
- Internal hemorrhoids.
Colonoscopy: 04/29/2012 (Nick) Multiple large-mouthed diverticula were found in the sigmoid colon and
in the descending colon.
Impression: - The procedure was aborted due to significant looping.
- Diverticulosis in the sigmoid colon and in the
descending colon.
Assessment / Plan
-
78-year-old female with dementia, HFpEF, hypertension, hyperlipidemia, paroxysmal episode of A-fib with RVR, diverticulosis, chronic kidney disease, diabetes, peptic ulcer disease presents to the ER from long-term with need for 4 L of
supplemental oxygen and heart rate of 125 after recently being discharged from [facility] from 09/25/2024 through 10/09/2024 for hospital stay with acute hypoxemia as well as sepsis from unclear source possibly from pneumonia. We are asked to
evaluate for elevated LFTs. Patient also had lactic acid 2.3 on arrival. Afebrile. Placed on Zosyn. Prior to this patient was admitted for sepsis from unclear source possibly pneumonia. Ceftriaxone and Flagyl. And was discontinued on 10/09/2024
and patient was continued on cefuroxime 250 mg twice daily for 3 days and Flagyl 250 mg 3 times daily for 3 days this should have taken her to 10/12/2025 when she presented to the ER with lethargy, hypoxemia, tachycardia, leukocytosis and elevated
lactic acid. Ultrasound of the abdomen is negative. LFTs trending down. Bilirubin still remains within normal limits.
Impression:
Elevated lactic acid and leukocytosis
--Workup pending including urine culture and blood culture
Elevated LFTs
-Improving, history of underlying fatty liver disease he is known to prior CT
-Check hepatitis panel
-Await urine culture and blood culture
-Could consider HIDA scan as patient is diabetic, with dementia if true concerns of acute cholecystitis.
-Patient has been on antibiotics prior time possible drug-induced liver injury possibly, less likely
- continue to trend LFT's
-okay to eat as per OCCUPATIONAL PHYSICIAN recommendations.
Hx PUD (remote Hx)
-continue Pantoprazole daily
-
-
Thank you for consultation and allowing me to participate in the patient's care. Please call the patient registration specialist GI physician during the after hours with any questions or concerns.
[2024-10-13 09:22] LABS: ALT (SGPT) 150 U/L (0-35); AST (SGOT) 335 U/L (14-36); Alkaline Phosphatase 262 U/L (38-126); Blood Urea Nitrogen 33 mg/dl (7-17); Calcium 8.6 mg/dl (8.4-10.2); Carbon Dioxide 31 mmol/L (22-30); Chloride 102 mmol/L (98-107); Estimated Creatinine Clearance 51 ml/min; Glucose 126 mg/dl (70-99); Potassium 4.1 mmol/L (3.5-5.1); Sodium 142 mmol/L (135-145); Total Bilirubin 0.5 mg/dl (0.2-1.3); Total Protein 5.9 g/dl (6.3-8.2); eGFR > 60.00
--- NOTE | 2024-10-13 09:31 | PTOTSP ---
Speech Therapy Evaluation:
Pt with chronic risk factors of dysphagia, including hx of advanced dementia with modified diet at baseline, compounded by lethargy and increased O2 demand. Pt remains at risk for aspiration given dependence for feeding/oral care and concern for
breathing/swallow coordination. Pt demonstrated impulsive feeding behaviors during PO trials with rapid rate of intake and taking 2+ bites prior to oral manipulation of prior bite. Despite this, no s/sx of aspiration across PO trials. CXR without
evidence of PNA.
Recommend:
1. Initiate IDDSI Level 5 (minced and moist) and thin liquids
2. Medications whole vs crushed in puree as tolerated
3. 1:1 assistance for feeding
4. General aspiration precautions
5. MASKING MACHINE FEEDER to follow to monitor tolerance of current diet level and determine ability to upgrade diet to baseline (IDDSI 6)
[2024-10-13] MEDS: OSCAL 500 + D 500 MG PO (10:09)
[2024-10-13] MEDS: MYRBETRIQ EXTENDED RELEASE 25 MG PO (10:09)
[2024-10-13] MEDS: ZYLOPRIM 100 MG PO (10:09)
[2024-10-13] MEDS: CRESTOR 30 MG PO (10:09)
[2024-10-13] MEDS: PROTONIX 20 MG PO ×2 (10:10→20:10)
[2024-10-13] MEDS: KCL 20 MEQ PO ×2 (10:10→20:10)
[2024-10-13] MEDS: VITAMIN C 1000 MG PO (10:11)
[2024-10-13] MEDS: LEXAPRO 10 MG PO (10:11)
[2024-10-13] MEDS: HEPARIN 5000 UNITS SC ×2 (10:11→16:09)
[2024-10-13 12:00] LABS: Hepatitis B Surface Antigen Negative (Negative)
--- NOTE | 2024-10-13 12:02 | W.PN.HOSP.TC ---
Addendum entered and electronically signed by Heath Foreman DO 10/13/24 14:53:
CDI: Likely aspiration pneumonitis, stage I pressure decubitus ulcer POA
Original Note:
Today's Communication/Plan
-
IDDSI 5 diet
Continue antibiotics for now
Aspiration precautions
Follow cultures
Trend LFTs
Assessment / Plan
Assessment / Plan
#Sepsis secondary to cholangitis versus aspiration
#Acute hypoxemic respiratory failure
-Suspicion higher at this time for aspiration event; has advanced dementia
-LFTs are now downtrending, RUQ US without evidence of stones or cholecystitis
-Vital signs have since improved, white cell count downtrending, patient nontoxic
-Speech and swallow evaluated the patient today, recommended de-escalating diet
-Imaging here has been negative including chest x-ray, RUQ US; UA bland
-Currently on IV Zosyn empirically, will continue for now
-Trend CBC and temperature curve
-Wean oxygen for SpO2 >90%
-Aspiration precautions
#Elevated LFTs
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
#HERMELINDA
-Prerenal related to SIRS/aspiration, poor oral intake
-Renal function improving with IV fluids, Lasix held
-Renal function returned to baseline
-Hold Lasix for now and monitor volume status
-May consider stopping Lasix completely
#HFpEF
-Recent echo 08/23/2024 shows preserved ejection fraction with stage II diastolic dysfunction
-Restarted home Lasix 20 mg p.o. daily 10/07
-Holding home valsartan due to low but stable blood pressure, will continue to hold, may not require afterload reduction agents if blood pressure remains low
#Diabetes mellitus
-Restarted home metformin but at lower dose as previous dose may have been causing GI symptoms
-Continue sliding scale insulin for now
#HLD
-No known history of ASCVD
-Home medications include high intensity statin
#GERD
-Home meds include pantoprazole twice daily
-No known history of Yan's esophagus or erosive disease
#Overactive bladder
-Home medications include Myrbetriq
#Gout
-Home medications include allopurinol
-No signs of gout flare
#Dementia
-AAO x 1 at baseline
-Home medications include donepezil
CODE STATUS: DNR
Diet: IDDSI 5, carb controlled
DVT prophylaxis: SQ heparin
Anticipated Discharge: > 48 hours
Subjective/Interval History
-
Date of Service: October 13, 2024
Seen and examined at the bedside. No acute events reported overnight. AFVSS on 4 L O2 with SpO2 100%
Patient appears well, denies any complaints. Denies abdomen pain, shortness of breath, cough, urinary discomfort
ROS is rather limited with her advanced dementia
Objective Data
-
Labs:
Laboratory Results
10/13/24
06:34
WBC 13.9 H
Hgb 11.2 L
Hct 35.5 L
Plt Count 385
Sodium 142
Potassium 4.1
Chloride 102
Carbon Dioxide 31 H
BUN 33 H
Creatinine 0.9
Glucose 126 H
Calcium 8.6
Total Bilirubin 0.5
AST 335 H
ALT 150 H
Alkaline Phosphatase 262 H
Vital Signs:
Vital Signs
Temp Pulse Resp BP Pulse Ox
98.2 F 86 16 103/75 99
10/13/24 10:59 10/13/24 11:31 10/13/24 11:31 10/13/24 10:59 10/13/24 11:31
I&O
10/12/24 10/13/24 10/14/24
06:59 06:59 06:59
Intake Total 1000 / 1000
Balance 1000 / 1000
Review of Systems
-
Unable to obtain full review of systems at this time due to: Dementia
Physical Exam
-
General: Well Developed, No Apparent Distress, Comfortable and Obese
HEENT: Normocephalic, Atraumatic and Moist Mucous Membranes
Respiratory: Clear to Auscultation and Non Labored Respirations
Cardiac: Regular Rhythm, S1/S2 and Murmur; Negative Rub, JVD or Gallop
GI: Soft, Nontender, Nondistended and Normal Bowel Sounds
Musculoskeletal: No Clubbing, No Cyanosis and No Edema
Skin: Warm, Dry and Normal Turgor; Negative Rash
Neuro: Awake, Alert, Oriented and Nonfocal/Grossly Intact
Psych: Calm
Data Reviewed
-
Labs: Labs Reviewed by me and Discussed with Patient
[2024-10-13 12:18] LABS: Hepatitis B Surface Antibody Negative; Hepatitis C Antibody Negative (Negative)
[2024-10-13 12:57] LABS: Hepatitis A IgM Antibody Negative (Negative); Hepatitis B Core Ab, IgM Negative (Negative)
--- NOTE | 2024-10-13 14:05 | PN.CDI ---
CDI
- -
CDI:
Physician Documentation Request
Admit Date: 10/12/24 19:21
Dear Doctor Ahsan,
Patient admitted with sepsis.
2/6 Nursing skin assessment, 'Stage 1 buttock pressure injury, POA.'
Physician documentation of the type and location of wounds is required for compliant documentation. Based on the above clinical findings and your assessment, please provide the following in your progress note:
.
Type (etiology) of ulcer/wound:
- Pressure (decubitus) ulcer
- Other
- Unable to determine
For a pressure ulcer, please also include the stage* of the ulcer:
- Stage 1 - Skin intact, non-blanchable redness
- Stage 2 - Partial thickness loss of dermis, includes intact or open blister
- Stage 3 - Full thickness tissue not including bone, tendon or muscle
- Stage 4 - Full thickness tissue loss, including exposed bone, tendon or muscle
- Unstageable - Full thickness loss in which the base of the ulcer is covered by slough (yellow, rodriguez, varma, green or brown) and/or eschar (rodriguez, brown or black) in the wound bed.
- Unable to determine
Use of terms such as suspected, likely, concern for, or probable (associated with a specific diagnosis that is being evaluated, monitored, or treated as if it exists) are acceptable and can be coded in the inpatient setting, when documented at the
time of discharge.
Thank you,
Danae RAM,RN,CCDS
CDI Specialist
Available via [place] text
Please use your independent medical judgment in providing your response.
*Source: National Pressure Ulcer Advisory Panel (NPUAP)
--- NOTE | 2024-10-13 14:13 | PN.CDI ---
CDI
- -
CDI:
Physician Documentation Request
Admit Date: 10/12/24 19:21
Dear Doctor Ahsan,
Patient admitted with sepsis.
H&P, 'Acute hypoxemic respiratory failure concerning for underlying pneumonia versus aspiration pneumonitis.
10/13 PN, 'Suspicion higher at this time for aspiration event; has advanced dementia....Currently on IV Zosyn empirically, will continue for now.'
Based on the above, could you please clarify in your note the suspected or likely diagnosis you are treating ?
Aspiration pneumonitis
Aspiration pneumonia
Other
Use of terms such as suspected, likely, concern for, or probable (associated with a specific diagnosis that is being evaluated, monitored, or treated as if it exists) are acceptable and can be coded in the inpatient setting, when documented at the
time of discharge.
Thank you,
Danae DORANN,RN,CCDS
CDI Specialist
Available via [employer] text
Please use your independent medical judgment in providing your response.
--- NOTE | 2024-10-13 17:34 | PTCARENOTE ---
Pt with pauses on telemetry - 24.12 seconds and 25.2 seconds long - approximately one minute apart from one another. Patient responsive and at baseline mental status. MD aware, cardiology to see patient tomorrow. Will continue to monitor on
telemetry.
[2024-10-13] MEDS: ARICEPT 10 MG PO (21:54)
[2024-10-13] MEDS: MELATONIN 3 MG PO (21:54)
[2024-10-14] MEDS: HEPARIN 5000 UNITS SC ×4 (00:33→23:06)
[2024-10-14 02:54] VITALS: BP 114/79
[2024-10-14] MEDS: NSS 1000 IV (03:51)
[2024-10-14 07:00] VITALS: BP 124/82
[2024-10-14] MEDS: KCL 20 MEQ PO ×2 (08:22→19:45)
[2024-10-14] MEDS: ZYLOPRIM 100 MG PO (08:22)
[2024-10-14] MEDS: OSCAL 500 + D 500 MG PO (08:22)
[2024-10-14] MEDS: MYRBETRIQ EXTENDED RELEASE 25 MG PO (08:22)
[2024-10-14] MEDS: VITAMIN C 1000 MG PO (08:22)
[2024-10-14] MEDS: CRESTOR 30 MG PO (08:22)
[2024-10-14] MEDS: PROTONIX 20 MG PO ×2 (08:22→19:45)
[2024-10-14] MEDS: LEXAPRO 10 MG PO (08:22)
[2024-10-14 08:28] LABS: ALT (SGPT) 175 U/L (0-35); AST (SGOT) 388 U/L (14-36); Albumin 2.6 g/dl (3.5-5.0); Alkaline Phosphatase 264 U/L (38-126); Blood Urea Nitrogen 27 mg/dl (7-17); Calcium 8.7 mg/dl (8.4-10.2); Carbon Dioxide 31 mmol/L (22-30); Chloride 103 mmol/L (98-107); Direct Bilirubin 0.1 mg/dl (0.0-0.4); Estimated Creatinine Clearance 58 ml/min; Glucose 130 mg/dl (70-99); Potassium 4.2 mmol/L (3.5-5.1); Sodium 139 mmol/L (135-145); Total Bilirubin 0.4 mg/dl (0.2-1.3); Total Protein 5.7 g/dl (6.3-8.2); eGFR > 60.00
--- NOTE | 2024-10-14 08:32 | W.PN.GI.CBS2 ---
Addendum entered and electronically signed by Amber Linder MD 10/14/24 11:37:
I saw and examined the patient.
The CANVASS MANAGER or PA's note was reviewed and I agree with the note.
Comment:
Pt w/o any clear distress, dementia limits assessment
abd: soft, nontender
impression:
abnl lfts
plan:
if lfts don't improve then HIDA
lfts did bump on last admission with sepsis and have remained steady
wbc is improving
Original Note:
Today's Communication / Plan
-
-Initially trending down, now stagnant. Would continue to trend since patient with significant dementia however has no tenderness on exam with normal if continues to elevate off antibiotics would consider HIDA scan to rule out acalculous
cholecystitis
Assessment / Plan
-
78-year-old female with dementia, HFpEF, hypertension, hyperlipidemia, paroxysmal episode of A-fib with RVR, diverticulosis, chronic kidney disease, diabetes, peptic ulcer disease presents to the ER from [facility] with need for 4 L of
supplemental oxygen and heart rate of 125 after recently being discharged from [facility] from 09/25/2024 through 10/09/2024 for hospital stay with acute hypoxemia as well as sepsis from unclear source possibly from pneumonia. We are asked to
evaluate for elevated LFTs. Patient also had lactic acid 2.3 on arrival. Afebrile. Placed on Zosyn. Prior to this patient was admitted for sepsis from unclear source possibly pneumonia. Ceftriaxone and Flagyl. And was discontinued on 10/09/2024
and patient was continued on cefuroxime 250 mg twice daily for 3 days and Flagyl 250 mg 3 times daily for 3 days this should have taken her to 10/12/2025 when she presented to the ER with lethargy, hypoxemia, tachycardia, leukocytosis and elevated
lactic acid. Ultrasound of the abdomen is negative.
10/14/2024: Total bilirubin 0.4, D bili 0.1, AST 388 (335, 563), AST 175 (150, 175), alk phos 264 (262, 336)
Impression:
Elevated lactic acid and leukocytosis, resolved
-- Negative urine and blood culture
-- Antibiotics discontinued
Elevated LFTs
-Initially trending down, now stagnant. Would continue to trend since patient with significant dementia however has no tenderness on exam with normal if continues to elevate off antibiotics would consider HIDA scan to rule out acalculous
cholecystitis
- history of underlying fatty liver disease he is known to prior CT
-Negative hepatitis panel
-Patient has been on antibiotics prior time possible drug-induced liver injury possibly, less likely
- continue to trend LFT's
-okay to eat as per LACE INSPECTOR recommendations.
Hx PUD (remote Hx)
-continue Pantoprazole daily
Subjective
Subjective
Date of Service: October 14, 2024
Patient pleasantly confused. Sitting in bed smiling. No complaints. Discussed with RN no issues overnight. Patient tolerating diet without any difficulty. LFTs stable compared to yesterday although still elevated. Antibiotics discontinued.
Patient remains afebrile. Cardiology consulted as patient had some pauses overnight per RN.
Objective
Data Reviewed
Laboratory Data:
Laboratory Results
10/14/24 07:44
Laboratory Results
Total Bilirubin 0.4 mg/dl (0.2-1.3) 10/14/24 07:44
AST 388 U/L (14-36) H 10/14/24 07:44
ALT 175 U/L (0-35) H 10/14/24 07:44
Alkaline Phosphatase 264 U/L (38-126) H 10/14/24 07:44
Vital Signs and I&O:
Vital Signs
Temp Pulse Resp BP Pulse Ox
97.6 F 84 18 114/79 96
10/14/24 02:54 10/14/24 02:54 10/14/24 02:54 10/14/24 02:54 10/14/24 02:54
I&O
10/13/24 10/14/24 10/15/24
06:59 06:59 06:59
Intake Total 1000 / 999 1560 / 1560
Balance 999 / 999 1560 / 1560
Physical Exam
Physical Exam
HEENT: Anicteric
Cardiology: Normal Sinus Rhythm
Pulmonary: Clear (Anterior)
GI: Soft, Non Distended, Non Tender and Normal Bowel Sounds
Neuro: Other (Oriented to person only)
[2024-10-14 08:33] LABS: % Basophils 0.8 % (0-2); % Eosinophils 2.7 % (0-6); % Immature Granulocytes 0.7 % (0-0.5); % Lymphocytes 16.8 % (20.5-51.1); % Monocytes 7.9 % (1.7-9.3); % Neutrophils 71.1 % (42.2-75.2); Absolute Basophils 0.1 10^3/uL (0-0.2); Absolute Eosinophils 0.3 10^3/uL (0-0.7); Absolute Immature Granulocytes 0.1 10^3/uL (0-0.05); Absolute Lymphocytes 1.7 10^3/uL (1.2-3.4); Absolute Monocytes 0.8 10^3/uL (0.1-0.6); Absolute Neutrophils 7.3 10^3/uL (1.4-6.5); Hematocrit 34.1 % (37.0-47.0); Hemoglobin 11.1 g/dL (12.0-16.0); Mean Corp Hgb Conc. 32.6 g/dL (33.0-37.0); Mean Corpuscular Hgb 31.4 pg (27.0-31.0); Mean Corpuscular Volume 96.3 fL (81.0-99.0); Mean Platelet Volume 9.8 fL (7.4-10.4); Nucleated Red Blood Cells % 0 %; Platelet Count 340 10^3/uL (130-400); Red Blood Cell Count 3.54 10^6/uL (4.20-5.40); Red Cell Dist. Width 13.6 % (11.5-14.5); White Blood Cell Count 10.3 10^3/uL (4.8-10.8)
[2024-10-14] MEDS: DUONEB 3 ML INH ×4 (08:58→19:20)
[2024-10-14 11:00] VITALS: BP 116/74
--- NOTE | 2024-10-14 11:39 | W.PN.HOSP.TC ---
Today's Communication/Plan
-
Continue IV Zosyn
Trend LFTs and consider HIDA/MRCP if persistently high
Monitor volume status off of Lasix
Follow final culture results
IDDS 5 diet and aspiration precautions
Assessment / Plan
Assessment / Plan
#Sepsis secondary to cholangitis versus cholecystitis versus aspiration
#Acute hypoxemic respiratory failure
-Suspicion higher at this time for aspiration event; has advanced dementia
-LFTs are now downtrending, RUQ US without evidence of stones or cholecystitis
-Vital signs have since improved, white cell count downtrending, patient nontoxic
-Speech and swallow evaluated the patient today, recommended de-escalating diet
-Imaging here has been negative including chest x-ray, RUQ US; UA bland
-Remains hemodynamically stable and without fever; Cx with NGTD
-GI following, recommended HIDA scan if LFTs persistent
Plan
-Continue IV Zosyn for now and trend CBC and temperature curve
-Trend LFTs; plan for HIDA/MRCP scan if not improving
-Follow cultures for final result
-Wean oxygen for SpO2 >90%
-Aspiration precautions
#Elevated LFTs
-May have degree of NAFLD at baseline though LFTs higher than previous based
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
-LFTs have improved though still remain in the elevated range
-Will continue to trend LFTs as above
#Sinus pause
-Per telemetry she had a 24-second sinus pause not associated with symptoms (evening 2/)
-Spoke with cardiology who mentions this was most likely lead failure
-No indication for cardiology consult
-Continue on telemetry here
#HERMELINDA
-Prerenal related to SIRS/aspiration, poor oral intake
-Renal function improving with IV fluids, Lasix held
-Renal function returned to baseline
-Hold Lasix for now and monitor volume status
-May consider stopping Lasix completely
#HFpEF
-Recent echo 08/23/2024 shows preserved ejection fraction with stage II diastolic dysfunction
-Restarted home Lasix 20 mg p.o. daily 10/07
-Holding home valsartan due to low but stable blood pressure, will continue to hold, may not require afterload reduction agents if blood pressure remains low
#Diabetes mellitus
-Restarted home metformin but at lower dose as previous dose may have been causing GI symptoms
-Continue sliding scale insulin for now
#HLD
-No known history of ASCVD
-Home medications include high intensity statin
#GERD
-Home meds include pantoprazole twice daily
-No known history of Yan's esophagus or erosive disease
#Overactive bladder
-Home medications include Myrbetriq
#Gout
-Home medications include allopurinol
-No signs of gout flare
#Dementia
-AAO x 1 at baseline
-Home medications include donepezil
CODE STATUS: DNR
Diet: IDDSI 5, carb controlled
DVT prophylaxis: SQ heparin
Anticipated Discharge: 24 - 48 hours
Subjective/Interval History
-
Date of Service: October 14, 2024
Seen and examined at the bedside. No acute events reported overnight. AFVSS this morning
She denies any pain in the abdomen. LFTs plateaued though remain elevated
Denies any new complaints today. States she feels well
Objective Data
-
Labs:
Laboratory Results
10/14/24
07:44
WBC 10.3
Hgb 11.1 L
Hct 34.1 L
Plt Count 340
Sodium 139
Potassium 4.2
Chloride 103
Carbon Dioxide 31 H
BUN 27 H
Creatinine 0.8
Glucose 130 H
Calcium 8.7
Total Bilirubin 0.4
AST 388 H
ALT 175 H
Alkaline Phosphatase 264 H
Vital Signs:
Vital Signs
Temp Pulse Resp BP Pulse Ox
97.7 F 85 16 124/82 97
10/14/24 07:00 10/14/24 09:02 10/14/24 09:02 10/14/24 07:00 10/14/24 09:02
I&O
10/13/24 10/14/24 10/15/24
06:59 06:59 06:59
Intake Total 1000 / 1000 1560 / 1560
Balance 1000 / 1000 1560 / 1560
Review of Systems
-
History Source: Patient
All other systems: Reviewed and negative
Physical Exam
-
General: Well Developed, No Apparent Distress and Obese
HEENT: Normocephalic, Atraumatic, Moist Mucous Membranes and Anicteric
Respiratory: Clear to Auscultation and Non Labored Respirations
Cardiac: Regular Rhythm, S1/S2 and Murmur; Negative Rub or Gallop
GI: Soft, Nontender, Nondistended, Normal Bowel Sounds and Other (Negative Gregory)
Musculoskeletal: No Clubbing, No Cyanosis and No Edema
Skin: Warm, Dry and Normal Turgor; Negative Rash or Jaundice
Neuro: Awake, Alert, Oriented and Nonfocal/Grossly Intact; Negative Tremors
Psych: Calm
Data Reviewed
-
Medical Tests (Nuc Med, Echo etc): Other (Discussed 'sinus pause' seen on telemetry with head golf coach)
Labs: Labs Reviewed by me and Discussed with Patient
[2024-10-14 15:00] VITALS: BP 115/78
--- NOTE | 2024-10-14 15:14 | CM ---
Patient was admitted from [facility] to [facility], prior to that patient was at [facility], patient required assist with adl's and used walker and w/c.
PCP: Sangeetha Steel
Pharmacy: [facility].
[2024-10-14 19:46] VITALS: BP 99/64
[2024-10-14] MEDS: ARICEPT 10 MG PO (21:01)
[2024-10-14] MEDS: MELATONIN 3 MG PO (21:01)
[2024-10-14 23:44] VITALS: BP 120/78
[2024-10-15 03:53] VITALS: BP 115/85
[2024-10-15 06:00] VITALS: BMI 30.9
[2024-10-15 07:00] VITALS: BP 128/88
[2024-10-15 07:38] LABS: % Basophils 0.8 % (0-2); % Eosinophils 3.2 % (0-6); % Immature Granulocytes 0.5 % (0-0.5); % Lymphocytes 19.3 % (20.5-51.1); % Monocytes 7.3 % (1.7-9.3); % Neutrophils 68.9 % (42.2-75.2); Absolute Basophils 0.1 10^3/uL (0-0.2); Absolute Eosinophils 0.3 10^3/uL (0-0.7); Absolute Lymphocytes 1.7 10^3/uL (1.2-3.4); Absolute Monocytes 0.6 10^3/uL (0.1-0.6); Hematocrit 34.6 % (37.0-47.0); Hemoglobin 10.9 g/dL (12.0-16.0); Mean Corp Hgb Conc. 31.5 g/dL (33.0-37.0); Mean Corpuscular Hgb 30.4 pg (27.0-31.0); Mean Corpuscular Volume 96.4 fL (81.0-99.0); Mean Platelet Volume 9.7 fL (7.4-10.4); Nucleated Red Blood Cells % 0 %; Platelet Count 373 10^3/uL (130-400); Red Blood Cell Count 3.59 10^6/uL (4.20-5.40); Red Cell Dist. Width 13.4 % (11.5-14.5); White Blood Cell Count 8.7 10^3/uL (4.8-10.8)
[2024-10-15 08:16] LABS: ALT (SGPT) 187 U/L (0-35); AST (SGOT) 390 U/L (14-36); Albumin 2.7 g/dl (3.5-5.0); Alkaline Phosphatase 287 U/L (38-126); Blood Urea Nitrogen 25 mg/dl (7-17); Calcium 8.9 mg/dl (8.4-10.2); Carbon Dioxide 31 mmol/L (22-30); Chloride 103 mmol/L (98-107); Direct Bilirubin 0.1 mg/dl (0.0-0.4); Estimated Creatinine Clearance 58 ml/min; Glucose 132 mg/dl (70-99); Potassium 4.4 mmol/L (3.5-5.1); Sodium 139 mmol/L (135-145); Total Bilirubin 0.3 mg/dl (0.2-1.3); Total Protein 5.8 g/dl (6.3-8.2); eGFR > 60.00
[2024-10-15] MEDS: DUONEB 3 ML INH (08:28)
--- NOTE | 2024-10-15 08:31 | W.PN.GI.CBS2 ---
Today's Communication / Plan
-
will order nonurgent hida
Assessment / Plan
-
78-year-old female with dementia, HFpEF, hypertension, hyperlipidemia, paroxysmal episode of A-fib with RVR, diverticulosis, chronic kidney disease, diabetes, peptic ulcer disease [facility] with need for 4 L of
supplemental oxygen and heart rate of 125 after recently being discharged from [facility] from 09/25/2024 through 10/09/2024 for hospital stay with acute hypoxemia as well as sepsis from unclear source possibly from pneumonia. We are asked to
evaluate for elevated LFTs. Patient also had lactic acid 2.3 on arrival. Afebrile. Placed on Zosyn. Prior to this patient was admitted for sepsis from unclear source possibly pneumonia. Ceftriaxone and Flagyl. And was discontinued on 10/09/2024
and patient was continued on cefuroxime 250 mg twice daily for 3 days and Flagyl 250 mg 3 times daily for 3 days this should have taken her to 10/12/2025 when she presented to the ER with lethargy, hypoxemia, tachycardia, leukocytosis and elevated
lactic acid. Ultrasound of the abdomen is negative.
10/14/2024: Total bilirubin 0.4, D bili 0.1, AST 388 (335, 563), AST 175 (150, 175), alk phos 264 (262, 336)
Impression:
Elevated lactic acid and leukocytosis, resolved
-- Negative urine and blood culture
-- Antibiotics discontinued
Elevated LFTs
-Initially trending down, now stagnant above baseline although wbc now normal, will order nonurgent HIDA with cck
- history of underlying fatty liver disease he is known to prior CT, this may be contributing
-Negative hepatitis panel and autoimmune and celiac
-Patient has been on antibiotics prior time possible drug-induced liver injury
- continue to trend LFT's
-okay to eat as per PARTS PRODUCT ANALYST recommendations.
Hx PUD (remote Hx)
-continue Pantoprazole daily
Subjective
Subjective
Date of Service: October 15, 2024
Patient resting comfortably again cannot give much history but does not appear to be in any distress.
Objective
Data Reviewed
Laboratory Data:
Laboratory Results
10/15/24 05:46
10/15/24 05:46
Laboratory Results
Total Bilirubin 0.3 mg/dl (0.2-1.3) 10/15/24 05:46
AST 390 U/L (14-36) H 10/15/24 05:46
ALT 187 U/L (0-35) H 10/15/24 05:46
Alkaline Phosphatase 287 U/L (38-126) H 10/15/24 05:46
Vital Signs and I&O:
Vital Signs
Temp Pulse Resp BP Pulse Ox
97.6 F 81 20 115/85 93
10/15/24 03:53 10/15/24 03:53 10/15/24 03:53 10/15/24 03:53 10/15/24 03:54
I&O
10/14/24 10/15/24 10/16/24
06:59 06:59 06:59
Intake Total 1560 / 1560 1080 / 1080
Balance 1560 / 1560 1080 / 1080
Physical Exam
Physical Exam
GI: Soft, Non Distended and Non Tender
[2024-10-15] MEDS: OSCAL 500 + D 500 MG PO (08:45)
[2024-10-15] MEDS: HEPARIN 5000 UNITS SC ×3 (08:45→23:55)
[2024-10-15] MEDS: KCL 20 MEQ PO ×2 (08:45→19:43)
[2024-10-15] MEDS: CRESTOR 30 MG PO (08:45)
[2024-10-15] MEDS: VITAMIN C 1000 MG PO (08:45)
[2024-10-15] MEDS: LEXAPRO 10 MG PO (08:45)
[2024-10-15] MEDS: MYRBETRIQ EXTENDED RELEASE 25 MG PO (08:45)
[2024-10-15] MEDS: PROTONIX 20 MG PO ×2 (08:45→19:43)
[2024-10-15] MEDS: ZYLOPRIM 100 MG PO (08:45)
--- NOTE | 2024-10-15 10:44 | CM ---
Chart reviewed and disease case manager rn reached put to Caleb [phone], emergency contact for patient and per Caleb patient can use a walker with assist at nursing facility, patient was admitted from [facility] and plan is to do another 2 weeks at
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 Patient still has a spot at [facility].
Plan; Patient to return to [facility], referral sent through [employer].
--- NOTE | 2024-10-15 10:55 | PTCARENOTE ---
Per Dr Foreman pt is ok to come off of telemetry
--- NOTE | 2024-10-15 11:18 | W.PN.HOSP.TC ---
Today's Communication/Plan
-
N.p.o. after midnight for HIDA scan tomorrow morning
Trend LFTs and CBC
Continue IV Zosyn, would consider discontinuing if HIDA negative
IDDSI 5 and aspiration precaution
Assessment / Plan
Assessment / Plan
#Sepsis secondary to possible Cholecystitis/Cholangitis v. Aspiration
#Acute hypoxemic respiratory failure
-Suspicion higher at this time for aspiration event; has advanced dementia
-LFTs are now downtrending, RUQ US without evidence of stones or cholecystitis
-Vital signs have since improved, white cell count downtrending, patient nontoxic
-Speech and swallow evaluated the patient today, recommended de-escalating diet
-Imaging here has been negative including chest x-ray, RUQ US; UA bland
-Remains hemodynamically stable and without fever; Cx with NGTD
-GI following, recommended HIDA scan if LFTs persistently high
Plan
-Continue IV Zosyn for now and trend CBC and temperature curve
-Order NPO @ [facility] for HIDA tomorrow
-Follow cultures for final result
-Wean oxygen for SpO2 >90%
-Aspiration precautions
#Elevated LFTs
-May have degree of NAFLD at baseline though LFTs higher than previous based
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
-LFTs have improved though still remain in the elevated range
-Will continue to trend LFTs
#Sinus pause
-Per telemetry she had a 24-second sinus pause not associated with symptoms (evening 2)
-Spoke with cardiology who mentions this was most likely lead failure
-No indication for cardiology consult
-Continue on telemetry here
#HERMELINAD
-Prerenal related to SIRS/aspiration, poor oral intake
-Renal function improving with IV fluids, Lasix held
-Renal function returned to baseline
-Hold Lasix for now and monitor volume status
-May consider stopping Lasix completely
#HFpEF
-Recent echo 08/23/2024 shows preserved ejection fraction with stage II diastolic dysfunction
-Restarted home Lasix 20 mg p.o. daily 10/07
-Holding home valsartan due to low but stable blood pressure, will continue to hold, may not require afterload reduction agents if blood pressure remains low
#Diabetes mellitus
-Restarted home metformin but at lower dose as previous dose may have been causing GI symptoms
-Continue sliding scale insulin for now
#HLD
-No known history of ASCVD
-Home medications include high intensity statin
#GERD
-Home meds include pantoprazole twice daily
-No known history of Yan's esophagus or erosive disease
#Overactive bladder
-Home medications include Myrbetriq
#Gout
-Home medications include allopurinol
-No signs of gout flare
#Dementia
-AAO x 1 at baseline
-Home medications include donepezil
CODE STATUS: DNR
Diet: IDDSI 5, carb controlled
DVT prophylaxis: SQ heparin
Anticipated Discharge: 24 - 48 hours
Subjective/Interval History
-
Date of Service: October 15, 2024
Seen and examined at the bedside. No acute events reported overnight. AFVSS as of this morning on low-flow NC
LFTs remain elevated and stable, patient denies any abdominal complaints
Denies any acute complaints.
Objective Data
-
Labs:
Laboratory Results
10/15/24
05:46
WBC 8.7
Hgb 10.9 L
Hct 34.6 L
Plt Count 373
Sodium 139
Potassium 4.4
Chloride 103
Carbon Dioxide 31 H
BUN 25 H
Creatinine 0.8
Glucose 132 H
Calcium 8.9
Total Bilirubin 0.3
AST 390 H
ALT 187 H
Alkaline Phosphatase 287 H
Vital Signs:
Vital Signs
Temp Pulse Resp BP Pulse Ox
97.6 F 83 20 128/88 98
10/15/24 07:00 10/15/24 08:36 10/15/24 08:36 10/15/24 07:00 10/15/24 08:36
I&O
10/14/24 10/15/24 10/16/24
06:59 06:59 06:59
Intake Total 1560 / 1560 1080 / 1080
Balance 1560 / 1560 1080 / 1080
Review of Systems
-
Unable to obtain full review of systems at this time due to: Dementia
History Source: Patient
All other systems: Reviewed and negative
Physical Exam
-
General: Well Developed, No Apparent Distress and Obese
HEENT: Normocephalic, Atraumatic and Moist Mucous Membranes
Respiratory: Clear to Auscultation and Non Labored Respirations
Cardiac: Regular Rhythm, S1/S2 and Murmur; Negative Rub or Gallop
GI: Soft, Nontender, Nondistended and Normal Bowel Sounds
Musculoskeletal: No Clubbing, No Cyanosis and No Edema
Skin: Warm, Dry and Normal Turgor; Negative Rash
Neuro: Awake, Alert, Oriented and Nonfocal/Grossly Intact
Psych: Calm
[2024-10-15 15:00] VITALS: BP 119/69
[2024-10-15 19:30] VITALS: BP 114/79
[2024-10-15] MEDS: ARICEPT 10 MG PO (21:54)
[2024-10-15] MEDS: MELATONIN 3 MG PO (21:54)
[2024-10-15 23:35] VITALS: BP 106/72
[2024-10-16 05:40] VITALS: BMI 31.2
[2024-10-16 07:26] LABS: % Basophils 0.7 % (0-2); % Eosinophils 2.8 % (0-6); % Immature Granulocytes 0.8 % (0-0.5); % Lymphocytes 19.2 % (20.5-51.1); % Monocytes 7.9 % (1.7-9.3); % Neutrophils 68.6 % (42.2-75.2); Absolute Basophils 0.1 10^3/uL (0-0.2); Absolute Eosinophils 0.3 10^3/uL (0-0.7); Absolute Immature Granulocytes 0.1 10^3/uL (0-0.05); Absolute Monocytes 0.8 10^3/uL (0.1-0.6); Hematocrit 35.9 % (37.0-47.0); Hemoglobin 11.3 g/dL (12.0-16.0); Mean Corp Hgb Conc. 31.5 g/dL (33.0-37.0); Mean Corpuscular Hgb 30.3 pg (27.0-31.0); Mean Corpuscular Volume 96.2 fL (81.0-99.0); Mean Platelet Volume 9.7 fL (7.4-10.4); Nucleated Red Blood Cells % 0 %; Platelet Count 373 10^3/uL (130-400); Red Blood Cell Count 3.73 10^6/uL (4.20-5.40); Red Cell Dist. Width 13.4 % (11.5-14.5); White Blood Cell Count 10.1 10^3/uL (4.8-10.8)
[2024-10-16 07:35] VITALS: BP 125/86
[2024-10-16 07:51] LABS: ALT (SGPT) 182 U/L (0-35); AST (SGOT) 315 U/L (14-36); Albumin 2.8 g/dl (3.5-5.0); Alkaline Phosphatase 299 U/L (38-126); Blood Urea Nitrogen 24 mg/dl (7-17); Carbon Dioxide 35 mmol/L (22-30); Chloride 99 mmol/L (98-107); Direct Bilirubin 0.1 mg/dl (0.0-0.4); Estimated Creatinine Clearance 58 ml/min; Glucose 133 mg/dl (70-99); Potassium 4.5 mmol/L (3.5-5.1); Sodium 138 mmol/L (135-145); Total Bilirubin 0.3 mg/dl (0.2-1.3); eGFR > 60.00
--- NOTE | 2024-10-16 09:05 | W.PN.HOSP.TC ---
Today's Communication/Plan
-
HIDA scan. Add insulin sliding scale. Discharge planning
Assessment / Plan
Assessment / Plan
Physical exam:
General: Chronically ill
HEENT: Normocephalic, Atraumatic and Moist Mucous Membranes
Respiratory: Clear to Auscultation; Negative Wheezes, Rales or Rhonchi
Cardiac: Regular Rhythm and S1/S2
GI: Soft, Nontender and Nondistended
Musculoskeletal: No Clubbing, No Cyanosis and No Edema
Neuro: Awake, Alert and Disoriented, no neurodeficits though
Psych: Calm, lack of judgment and insight
A/P:
Ruled out sepsis:
Patient has not received IV antibiotics after initial ED antibiotic.
Blood cultures no growth
Urine culture no growth
Checks x-ray no acute chest pathology
MRSA screen negative
RSV negative
Influenza negative
COVID-19 negative
Possible aspiration pneumonitis:
No need for antibiotics
Chest x-ray no evidence of acute pathology
Respiratory insufficiency:
Continue supplemental oxygen
Reported to be at her baseline
Elevated LFTs:
Trend
HIDA scan negative
GI on board
Dementia:
Continue donepezil
Hyperlipidemia:
Hold rosuvastatin 30 mg p.o. daily
Depression:
Continue escitalopram 10 mg p.o.
Gout:
Continue allopurinol 100 mg p.o.
HERMELINDA:
Resolved
There is mention of ARB use but I cannot find it on her med rec.
Chronic HFpEF:
Resume oral diuretics, oral Lasix 20 mg p.o. daily
Continue potassium supplements
There is mention of ARB use but I cannot find it on her med rec.
Diabetes mellitus type 2:
Check hemoglobin A1c
Add insulin sliding scale
Resume home doses of metformin
GERD:
Continue Protonix
DVT prophylaxis:
Heparin SQ
CODE STATUS:
DNR
Anticipated Discharge: Within 24 hours
Subjective/Interval History
-
Date of Service: October 16, 2024
Not much improved from patient due to dementia. Afebrile.
Objective Data
-
Labs:
Laboratory Results
10/16/24
06:20
WBC 10.1
Hgb 11.3 L
Hct 35.9 L
Plt Count 373
Sodium 138
Potassium 4.5
Chloride 99
Carbon Dioxide 35 H
BUN 24 H
Creatinine 0.8
Glucose 133 H
Calcium 9.0
Total Bilirubin 0.3
AST 315 H
ALT 182 H
Alkaline Phosphatase 299 H
Vital Signs:
Vital Signs
Temp Pulse Resp BP Pulse Ox
98.6 F 87 20 125/86 97
10/16/24 07:35 10/16/24 07:35 10/16/24 07:35 10/16/24 07:35 10/16/24 07:35
I&O
10/15/24 10/16/24 10/17/24
06:59 06:59 06:59
Intake Total 1080 / 1080 1380 / 1380
Balance 1080 / 1080 1380 / 1380
[2024-10-16] MEDS: HEPARIN 5000 UNITS SC ×3 (10:54→23:03)
[2024-10-16] MEDS: OSCAL 500 + D 500 MG PO (10:55)
[2024-10-16] MEDS: KCL 20 MEQ PO ×2 (10:55→22:01)
[2024-10-16] MEDS: CRESTOR 30 MG PO (10:56)
[2024-10-16] MEDS: PROTONIX 20 MG PO ×2 (10:56→22:02)
[2024-10-16] MEDS: LEXAPRO 10 MG PO (10:56)
[2024-10-16] MEDS: ZYLOPRIM 100 MG PO (10:57)
[2024-10-16] MEDS: MYRBETRIQ EXTENDED RELEASE 25 MG PO (10:57)
[2024-10-16] MEDS: VITAMIN C 1000 MG PO (10:57)
[2024-10-16 11:27] LABS: INR 1.09; PT 14.4 Sec (11.4-14.6)
--- NOTE | 2024-10-16 11:55 | W.PN.GI.CBS2 ---
Today's Communication / Plan
-
avoid cephalosporin/zosyn in future
Assessment / Plan
-
78-year-old female with dementia, HFpEF, hypertension, hyperlipidemia, paroxysmal episode of A-fib with RVR, diverticulosis, chronic kidney disease, diabetes, peptic ulcer disease presents to the ER from senior care with need for 4 L of
supplemental oxygen and heart rate of 125 after recently being discharged from [facility] from 09/25/2024 through 10/09/2024 for hospital stay with acute hypoxemia as well as sepsis from unclear source possibly from pneumonia. We are asked to
evaluate for elevated LFTs. Patient also had lactic acid 2.3 on arrival. Afebrile. Placed on Zosyn. Prior to this patient was admitted for sepsis from unclear source possibly pneumonia. Ceftriaxone and Flagyl. And was discontinued on 10/09/2024
and patient was continued on cefuroxime 250 mg twice daily for 3 days and Flagyl 250 mg 3 times daily for 3 days this should have taken her to 10/12/2025 when she presented to the ER with lethargy, hypoxemia, tachycardia, leukocytosis and elevated
lactic acid. Ultrasound of the abdomen is negative.
HIDA scan negative
Impression:
Elevated lactic acid and leukocytosis, resolved
-- Negative urine and blood culture
-- Antibiotics discontinued
- fatty liver
Elevated LFTs
-stable and PT/INR normal
-likely DILI from antibiotics (review shows zosyn and cephalosporins in recent med hx) now off
-underlying fatty liver
since PT/INR normal and labs stable would have primary outpatient doctor f/u in 2-4 weeks. This may be her new baseline or DILI that will take some time to resolve
will sign off call with questions
Subjective
Subjective
Date of Service: October 16, 2024
patient in no distress
Objective
Data Reviewed
Laboratory Data:
Laboratory Results
10/16/24 06:20
10/16/24 06:20
Laboratory Results
PT 14.4 Sec (11.4-14.6) 10/16/24 11:04
INR 1.09 10/16/24 11:04
Total Bilirubin 0.3 mg/dl (0.2-1.3) 10/16/24 06:20
AST 315 U/L (14-36) H 10/16/24 06:20
ALT 182 U/L (0-35) H 10/16/24 06:20
Alkaline Phosphatase 299 U/L (38-126) H 10/16/24 06:20
Vital Signs and I&O:
Vital Signs
Temp Pulse Resp BP Pulse Ox
98.6 F 87 20 125/86 97
10/16/24 07:35 10/16/24 07:35 10/16/24 07:35 10/16/24 07:35 10/16/24 07:35
I&O
10/15/24 10/16/24 10/17/24
06:59 06:59 06:59
Intake Total 1080 / 1080 1380 / 1380
Balance 1080 / 1080 1380 / 1380
Physical Exam
Physical Exam
HEENT: Anicteric
GI: Soft, Non Distended and Non Tender
[2024-10-16] MEDS: AUGMENTIN 875 MG/125 MG 1 TABLET PO (13:35)
[2024-10-16 15:13] VITALS: BP 120/79
[2024-10-16] MEDS: LASIX 20 MG PO (16:25)
[2024-10-16] MEDS: GLUCOPHAGE 1000 MG PO (16:26)
[2024-10-16 16:54] LABS: Glucose - Point of Care 136 mg/dl (70-99)
[2024-10-16 21:04] LABS: Glucose - Point of Care 123 mg/dl (70-99)
[2024-10-16] MEDS: ARICEPT 10 MG PO (22:01)
[2024-10-16] MEDS: MELATONIN 3 MG PO (22:02)
[2024-10-16 23:30] VITALS: BP 102/70
[2024-10-17 05:54] VITALS: BMI 31.5
[2024-10-17 07:30] VITALS: BP 120/72
[2024-10-17 07:59] LABS: Glucose - Point of Care 125 mg/dl (70-99)
--- NOTE | 2024-10-17 08:17 | W.PN.HOSP.TC ---
Today's Communication/Plan
-
Discharge planning
Assessment / Plan
Assessment / Plan
Physical exam:
General: Chronically ill
HEENT: Normocephalic, Atraumatic and Moist Mucous Membranes
Respiratory: Clear to Auscultation; Negative Wheezes, Rales or Rhonchi
Cardiac: Regular Rhythm and S1/S2
GI: Soft, Nontender and Nondistended
Musculoskeletal: No Clubbing, No Cyanosis and No Edema
Neuro: Awake, Alert and Disoriented, no neurodeficits though
Psych: Calm, lack of judgment and insight
A/P:
Ruled out sepsis:
Patient has not received IV antibiotics after initial ED antibiotic.
Blood cultures no growth
Urine culture no growth
Checks x-ray no acute chest pathology
MRSA screen negative
RSV negative
Influenza negative
COVID-19 negative
Medically ready for discharge-director case management for discharge disposition
Possible aspiration pneumonitis:
No need for antibiotics
Chest x-ray no evidence of acute pathology
Respiratory insufficiency:
Continue supplemental oxygen
Reported to be at her baseline
Elevated LFTs:
Trending down
Can continue to trend every so often or as outpatient
Hold statin
HIDA scan negative
GI on board
Dementia:
Continue donepezil
Hyperlipidemia:
Hold rosuvastatin 30 mg p.o. daily
Depression:
Continue escitalopram 10 mg p.o.
Gout:
Continue allopurinol 100 mg p.o.
HERMELINDA:
Resolved
There is mention of ARB use but I cannot find it on her med rec.
Chronic HFpEF:
Resumed oral diuretics, oral Lasix 20 mg p.o. daily
Continue potassium supplements
There is mention of ARB use but I cannot find it on her med rec.
Diabetes mellitus type 2:
Check hemoglobin A1c
Add insulin sliding scale
Resume home doses of metformin
GERD:
Continue Protonix
DVT prophylaxis:
Heparin SQ
CODE STATUS:
DNR
Anticipated Discharge: Today
Subjective/Interval History
-
Date of Service: October 17, 2024
No new events. Afebrile
Objective Data
-
Labs:
Laboratory Results
10/17/24
06:00
WBC Pending
Hgb Pending
Hct Pending
Plt Count Pending
PT Pending
INR Pending
Sodium Pending
Potassium Pending
Chloride Pending
Carbon Dioxide Pending
BUN Pending
Creatinine Pending
Glucose Pending
Calcium Pending
Total Bilirubin Pending
AST Pending
ALT Pending
Alkaline Phosphatase Pending
Vital Signs:
Vital Signs
Temp Pulse Resp BP Pulse Ox
98.7 F 91 18 120/72 96
10/17/24 07:30 10/17/24 07:30 10/17/24 07:30 10/17/24 07:30 10/17/24 07:30
I&O
10/16/24 10/17/24 10/18/24
06:59 06:59 06:59
Intake Total 1380 / 1380 480 / 480
Balance 1380 / 1380 480 / 480
[2024-10-17 09:00] LABS: INR 1.16; PT 15.1 Sec (11.4-14.6)
[2024-10-17] MEDS: MYRBETRIQ EXTENDED RELEASE 25 MG PO (09:07)
[2024-10-17] MEDS: VITAMIN C 1000 MG PO (09:07)
[2024-10-17 09:08] LABS: % Basophils 0.6 % (0-2); % Eosinophils 3.8 % (0-6); % Immature Granulocytes 0.6 % (0-0.5); % Lymphocytes 10.6 % (20.5-51.1); % Monocytes 6.8 % (1.7-9.3); % Neutrophils 77.6 % (42.2-75.2); Absolute Basophils 0.1 10^3/uL (0-0.2); Absolute Eosinophils 0.3 10^3/uL (0-0.7); Absolute Immature Granulocytes 0.1 10^3/uL (0-0.05); Absolute Lymphocytes 0.9 10^3/uL (1.2-3.4); Absolute Monocytes 0.6 10^3/uL (0.1-0.6); Absolute Neutrophils 6.9 10^3/uL (1.4-6.5); Hematocrit 36.2 % (37.0-47.0); Hemoglobin 11.7 g/dL (12.0-16.0); Mean Corp Hgb Conc. 32.3 g/dL (33.0-37.0); Mean Corpuscular Hgb 30.9 pg (27.0-31.0); Mean Corpuscular Volume 95.5 fL (81.0-99.0); Mean Platelet Volume 9.5 fL (7.4-10.4); Nucleated Red Blood Cells % 0 %; Platelet Count 347 10^3/uL (130-400); Red Blood Cell Count 3.79 10^6/uL (4.20-5.40); Red Cell Dist. Width 13.5 % (11.5-14.5); White Blood Cell Count 8.9 10^3/uL (4.8-10.8)
[2024-10-17] MEDS: LASIX 20 MG PO (09:08)
[2024-10-17] MEDS: PROTONIX 20 MG PO (09:08)
[2024-10-17] MEDS: KCL 20 MEQ PO (09:08)
[2024-10-17] MEDS: OSCAL 500 + D 500 MG PO (09:09)
[2024-10-17] MEDS: GLUCOPHAGE 1000 MG PO (09:09)
[2024-10-17] MEDS: ZYLOPRIM 100 MG PO (09:09)
[2024-10-17] MEDS: LEXAPRO 10 MG PO (09:09)
[2024-10-17] MEDS: HEPARIN 5000 UNITS SC ×2 (09:10→16:18)
[2024-10-17 09:36] LABS: ALT (SGPT) 157 U/L (0-35); AST (SGOT) 225 U/L (14-36); Alkaline Phosphatase 313 U/L (38-126); Blood Urea Nitrogen 25 mg/dl (7-17); Carbon Dioxide 35 mmol/L (22-30); Chloride 95 mmol/L (98-107); Direct Bilirubin 0.2 mg/dl (0.0-0.4); Estimated Creatinine Clearance 58 ml/min; Glucose 124 mg/dl (70-99); Potassium 4.4 mmol/L (3.5-5.1); Sodium 136 mmol/L (135-145); Total Bilirubin 0.6 mg/dl (0.2-1.3); eGFR > 60.00
[2024-10-17 11:30] VITALS: BP 106/79; PULSE 97; O2SAT 93
[2024-10-17 11:34] LABS: Glucose - Point of Care 140 mg/dl (70-99)
[2024-10-17 11:56] VITALS: BP 113/71
--- NOTE | 2024-10-17 13:23 | W.DCSUMMARY ---
Discharge Summary
Discharge Data
Date of Admission: 10/12/24
Date of Discharge: 10/17/24
-
Pending Results: No
Hospital Course
Patient is 78 years old female history of dementia, A-fib, CKD came into the hospital with generalized malaise. Initial concern was for sepsis but this was ruled out. All cultures remain negative. She did have some elevated LFTs. GI was
consulted. Most of the workup unrevealing but GI felt probably related to DILI. Statins to hold until follow-up LFTs continue to trend on the right direction. Patient did have some fatty liver disease. Otherwise, patient hemodynamically stable,
afebrile. She will be discharged back to skilled facility in relatively stable condition today.
Discharge duration: 32 minutes
Discharge Plan
-
Patient Disposition: Custodial/SNF
Discharge Diagnosis/Procedures: Ruled out sepsis. Possible aspiration pneumonitis. Respiratory insufficiency. Elevated liver function test. Dementia.
Diet: Low Cholesterol
Activity: As tolerated
Blood Work: Please PCP to order CBC, CMP within 1 week
Referrals:
Amber Linder MD [Active] - in four to six weeks
Anderson Tinajero MD [Family Provider] - in less than 1 week
Prescriptions:
Continued
donepezil [Aricept] 10 mg Tablet
10 mg PO HS
ascorbic acid (vitamin C) 500 mg Tablet
1,000 mg PO DAILY
nystatin 100,000 unit/gram Powder
1 applic TOPICAL DAILY
melatonin 3 mg Tablet
3 mg PO HS
allopurinol 100 mg Tablet
100 mg PO DAILY
pantoprazole [Protonix] 20 mg Tablet,Delayed Release (Dr/Ec)
20 mg PO BID
potassium chloride 20 mEq tablet,ER particles/crystals
20 meq PO BID
dextromethorphan-guaifenesin [Robitussin Cough-Chest Finesse DM] 5-100 mg/5 mL Liquid
10 ml PO Q4HPRN PRN (Reason: cough)
Balmex Adult Care 11.3 % Cream
1 applic TOPICAL BIDPRN PRN (Reason: sacral area redness)
mirabegron [Myrbetriq] 25 mg Tablet Extended Release 24 Hr
25 mg PO DAILY
furosemide [Lasix] 20 mg Tablet
20 mg PO DAILY
magnesium hydroxide [Milk of Magnesia] 400 mg/5 mL Suspension
2,400 mg PO DAILYPRN PRN (Reason: if no bm by 4th day)
Fleet Enema 19-7 gram/118 mL Enema
118 ml [place] DAILYPRN PRN (Reason: if no bm by 6th day)
Calcium 600 with Vitamin D3 600 mg-10 mcg (400 unit) Tablet,Chewable
1 tab PO DAILY
ipratropium-albuterol 0.5 mg-3 mg(2.5 mg base)/3 mL Solution For Nebulization
3 ml INHALATION R QID
alum-mag hydroxide-simeth [Mylanta Maximum Strength] 400-400-40 mg/5 mL Suspension
10 ml PO Q6HPRN PRN (Reason: gerd)
escitalopram oxalate [Lexapro] 10 mg Tablet
10 mg PO DAILY
metformin 1,000 mg tablet
1,000 mg PO DAILY
bisacodyl [Dulcolax (bisacodyl)] 10 mg Suppository
10 mg [place] DAILYPRN PRN (Reason: if no bm aftr mom)
Discontinued
acetaminophen 325 mg Tablet
650 mg PO Q4HPRN PRN (Reason: mild pain)
rosuvastatin 20 mg Tablet
30 mg PO DAILY
cefuroxime axetil 250 mg tablet
250 mg PO BID 3 Days Qty: 6 0RF
Discharge Orders:
Discharge Patient (As Directed); Ordered 10/17/24
Ordered By: Ward Amado
Discharge Date and Time
Discharge Date/Time: 10/17/24 18:55
Print Language: LATVIAN
--- NOTE | 2024-10-17 13:31 | CM ---
Chart reviewed for d/c planning. Pt is a resident at [facility]. Pt is being recommended for skilled rehab
Per [facility] admissions, can accept back today if stable
Hospitalist agreeable for d/c today, d/c placed
Ambulance transport to be arranged, forms faxed to [address] [place] [address] clerk
Attempted call to pt's friend, no answer
[facility]
Report: [phone] ([facility])

Plan: Return to [facility] for rehab today via ambulance
[2024-10-17 16:10] VITALS: BP 119/84
[2024-10-17 16:12] VITALS: BP 119/84
[2024-10-17 16:56] LABS: Glucose - Point of Care 121 mg/dl (70-99)
[2024-10-17] MEDS: DESENEX/MITRAZOL/ZEASORB 1 APPLIC TOPICAL (18:09)
== END 2024-10-17 18:55 | DRG 178 ==
LOC: 4 WEST ACU 19:21
PROVIDERS: Nurse Practitioner; Nurse Practitioner Family; Physician Assistant; ADMITTING PHYSICIAN Internal Medicine; ATTENDING PHYSICIAN Hospitalist; CONSULT PHYSICIAN Internal Medicine; EMERGENCY PHYSICIAN Emergency Medicine; FAMILY PHYSICIAN Family Medicine
DX: J69.0 Pneumonitis due to inhalation of food and vomit (principal); F03.C4 Unspecified dementia, severe, with anxiety; I13.0 Hypertensive heart and chronic kidney disease with heart failure and stage 1 through stage 4 chronic kidney disease, or unspecified chronic kidney disease; I50.32 Chronic diastolic (congestive) heart failure; N17.9 Acute kidney failure, unspecified; J98.11 Atelectasis; N18.9 Chronic kidney disease, unspecified; E11.22 Type 2 diabetes mellitus with diabetic chronic kidney disease; Z11.52 Encounter for screening for COVID-19; Z66 Do not resuscitate; E78.00 Pure hypercholesterolemia, unspecified; I48.91 Unspecified atrial fibrillation; K76.0 Fatty (change of) liver, not elsewhere classified; K57.30 Diverticulosis of large intestine without perforation or abscess without bleeding; Z87.11 Personal history of peptic ulcer disease; Z79.899 Other long term (current) drug therapy; M10.9 Gout, unspecified; N32.81 Overactive bladder; K21.9 Gastro-esophageal reflux disease without esophagitis; Z79.84 Long term (current) use of oral hypoglycemic drugs; I25.10 Atherosclerotic heart disease of native coronary artery without angina pectoris; N20.0 Calculus of kidney; Z86.0100 Personal history of colon polyps, unspecified; K64.8 Other hemorrhoids; K71.9 Toxic liver disease, unspecified; F32.A Depression, unspecified; L89.91 Pressure ulcer of unspecified site, stage 1
CPT/HCPCS: 51701; 71046; 76705; 78226; 80053; 81003; 81015; 82248; 82962; 83605; 84484; 85025; 85610; 86705; 86706; 86709; 86803; 87040; 87070; 87086; 87340; 87502; 87807; 87811; 92526; 92610; 93005; 94640; 96365; 97163; 97167; 97530; 99285; A9537

== ENCOUNTER → 2024-10-18 10:39 | Outpatient (REF) | payer OTHER, MEDICARE, BC, SELFPAY ==
[2024-10-18 11:33] LABS: Hematocrit 37.8 % (37.0-47.0); Hemoglobin 12.1 g/dL (12.0-16.0); Mean Corpuscular Hgb 30.9 pg (27.0-31.0); Mean Corpuscular Volume 96.4 fL (81.0-99.0); Mean Platelet Volume 9.8 fL (7.4-10.4); Platelet Count 340 10^3/uL (130-400); Red Blood Cell Count 3.92 10^6/uL (4.20-5.40); Red Cell Dist. Width 13.7 % (11.5-14.5); White Blood Cell Count 8.8 10^3/uL (4.8-10.8)
[2024-10-18 12:18] LABS: ALT (SGPT) 125 U/L (0-35); AST (SGOT) 149 U/L (14-36); Albumin 3.4 g/dl (3.5-5.0); Alkaline Phosphatase 284 U/L (38-126); Blood Urea Nitrogen 27 mg/dl (7-17); Calcium 9.2 mg/dl (8.4-10.2); Carbon Dioxide 37 mmol/L (22-30); Chloride 91 mmol/L (98-107); Glucose 116 mg/dl (70-99); Potassium 4.1 mmol/L (3.5-5.1); Sodium 137 mmol/L (135-145); Total Bilirubin 0.7 mg/dl (0.2-1.3); Total Protein 6.4 g/dl (6.3-8.2); eGFR > 60.00
== END ==
LOC: OLABP 10:39
PROVIDERS: ATTENDING PHYSICIAN Family Medicine
DX: N18.9 Chronic kidney disease, unspecified (principal); I50.30 Unspecified diastolic (congestive) heart failure; F41.9 Anxiety disorder, unspecified; F32.9 Major depressive disorder, single episode, unspecified; N39.0 Urinary tract infection, site not specified; E78.5 Hyperlipidemia, unspecified; F03.90 Unspecified dementia, unspecified severity, without behavioral disturbance, psychotic disturbance, mood disturbance, and anxiety; M10.9 Gout, unspecified; J98.11 Atelectasis; J96.01 Acute respiratory failure with hypoxia
CPT/HCPCS: 36415; 80053; 85027